=== PATIENT | male | born 1940 | race Caucasian/White ===

== ENCOUNTER 2016-12-07 16:11 | Inpatient (IN) | payer MEDICARE, OTHER ==
[~2016-12-07 16:11] MED LIST: ISOVUE-370 76%-LOCM 1 ML ONE
[2016-12-07 16:56] LABS: Hematocrit 25.7 % (42.0-52.0); Mean Platelet Volume 7.7 fL (7.4-10.4); Red Blood Cell (RBC) Count 2.24 mill/uL (4.70-6.10)
[2016-12-07] MEDS ORDERED: Acetaminophen 500 MG TAB ONE (17:02)
[2016-12-07 17:13] LABS: Anisocytosis SLIGHT = 6-15 cells (100X) (0-5/hpf); Hypochromia SLIGHT = 6-15 cells (100X) (0-5/hpf); Neutrophil 96 % (42-75)
[2016-12-07 17:14] LABS: Lactic Acid - Sepsis 1.3 mmol/L (0.5-2.2)
[2016-12-07 17:17] LABS: ALT (SGPT) 17 U/L (8-55); AST (SGOT) 24 U/L (5-34); Alkaline Phosphatase 66 U/L (40-150); Anion Gap 14 mmol/L (10-20); BUN (Urea Nitrogen) 18 mg/dL (8.4-25.7); Bilirubin, Total 1.2 mg/dL (0.2-1.2); CK (CPK) 72 U/L (30-200); Calc. Creatinine Clearance 0 mL/min (70-130); Calcium 8.5 mg/dL (7.8-10.44); Carbon Dioxide 26 mmol/L (23-31); Chloride 99 mmol/L (98-107); Estimated GFR-MDRD 76; Globulin 4.3 g/dL (2.4-3.5); Protein, Total 7.5 g/dL (5.8-8.1)
[2016-12-07 17:22] LABS: Troponin I 0.029 ng/mL (< 0.028)
--- NOTE | 2016-12-07 18:21 | RAD ---
AP CHEST: Indication: Hypoxia. Tachycardia. Comparison: 08-18-12 FINDINGS: Heart size is upper limits of normal. Pulmonary vasculature appears mildly prominent. There is some suspected interstitial and airspace edema seen bilaterally. There are trace pleural effusions bilate rally. There is a new right IJ chest wall port in place. ACDF of the lower cervical spine is similar . No acute osseous abnormality is evident. IMPRESSION: Mild cardiomegaly with pulmonary vascular congestion and diffuse interstitial and airspace opacities with trace pleural effusions likely reflecting changes of volume overload. Infectious process canno t be entirely excluded. Recommend continued follow up. POS: [facility]
[2016-12-07] MEDS ORDERED: Ketorolac Tromethamine 30 MG/ML VIAL ONE (18:50)
[2016-12-07] MEDS ORDERED: Vancomycin HCl 1 GM in Premix Bag 1 BAG IVPB SCH (19:30)
[2016-12-07] MEDS ORDERED: Piperacillin/Tazobactam 4.5 GM in Sodium Chloride 0.9% 100 ML IVPB SCH (19:30)
--- NOTE | 2016-12-07 20:00 | CT ---
CTA OF THE CHEST WITH IV CONTRAST UTILIZING 3D REFORMATTED IMAGING PE PROTOCOL: Comparison: CT pulmonary lung scan, 04-29-16 INDICATION: SHORTNESS OF BREATH AND SUBJECTIVE FEVERS. HISTORY OF RECENTLY DIAGNOSED CANCER. FINDINGS: No central or segmental pulmonary embolus is evident. Scattered pulmonary nodules are stable with th e largest being in the right lower lobe measuring 2.7 x 2.3 cm. Mediastinal hilar lymphadenopathy is similar. There is new scattered ground glass and interstitial opacities seen throughout both lungs which is worsened from the prior exam. Upper abdomen is unremarkable for acute abnormality. No defin ite acute osseous abnormality is demonstrated. There is a new right chest wall port. IMPRESSION: 1. No central or segmental pulmonary embolus. 2. Interval development of worsening interstitial and air space opacities seen throughout both lungs . Findings are suspicious for atypical pneumonia. 3. Stable scattered pulmonary nodules and mediastinal lymphadenopathy. POS: [facility]
[2016-12-07] MEDS ORDERED: Calcium Carbonate 500 MG ChewTAB PO PRN (22:46)
[2016-12-07] MEDS ORDERED: Ondansetron ODT 4 MG TAB PO PRN (22:46)
[2016-12-07] MEDS ORDERED: Cefepime 2 GM in Sodium Chloride 0.9% 100 ML IVPB SCH (22:46)
[2016-12-07] MEDS ORDERED: Vancomycin HCl 1.5 GM in Sodium Chloride 0.9% 250 ML 300 ML IVPB SCH (22:46)
[2016-12-07] MEDS ORDERED: Ondansetron HCl/PF 4 MG/2 ML Vial IVP PRN (22:46)
[2016-12-07] MEDS ORDERED: Bisacodyl 5 MG TAB PO PRN (22:46)
[2016-12-07] MEDS ORDERED: Bisacodyl 10 MG SUPP PR PRN (22:46)
[2016-12-07] MEDS ORDERED: Acetaminophen 650 MG Suppository PR PRN (22:46)
[2016-12-07] MEDS ORDERED: Acetaminophen 325 MG TAB PO PRN (22:46)
[2016-12-07] MEDS ORDERED: Enoxaparin Sodium 40 MG/0.4 ML SYRINGE SC SCH (23:00)
[2016-12-07] MEDS: Sodium Chloride 0.9% 1,000 ML IV SCH (23:27)
[2016-12-07] MEDS ORDERED: Lorazepam 1 MG TAB PO PRN (23:33)
[2016-12-07] MEDS ORDERED: Acetaminophen/Codeine 30-300mg Tablet PO PRN (23:33)
[2016-12-08] MEDS: HYDROcodone/Acetaminophen 5/325 mg Tablet PO PRN ×4 (00:27→21:10)
[2016-12-08] MEDS: Cefepime 2 GM, Syringe 2.5 ML in Sterile Water 10 ML SLOW IVP SCH ×4 (00:27→23:35)
[2016-12-08] MEDS ORDERED: Acetaminophen/Codeine 30-300mg Tablet PO PRN (00:28)
[2016-12-08 01:03] LABS: Digoxin 0.34 ng/mL (0.8-2.0)
[2016-12-08 01:08] LABS: Troponin I 0.034 ng/mL (< 0.028)
[2016-12-08] MEDS: Sodium Chloride 0.9% 1,000 ML IV SCH (03:28)
[2016-12-08] MEDS: Piperacillin/Tazobactam 3.375 GM in Sodium Chloride 0.9% 100 ML IVPB SCH ×3 (03:28→20:40)
[2016-12-08 03:36] LABS: Band 2 % (5-11); Hematocrit 23.7 % (42.0-52.0); Macrocytosis SLIGHT = 6-15 cells (100X) (0-5/hpf); Mean Platelet Volume 8.2 fL (7.4-10.4); Neutrophil 68 % (42-75); Red Blood Cell (RBC) Count 2.03 mill/uL (4.70-6.10); Troponin I 0.025 ng/mL (< 0.028); White Blood Cell (WBC) Count 4.7 thou/uL (4.8-10.8)
[2016-12-08 03:38] LABS: Anion Gap 13 mmol/L (10-20); BUN (Urea Nitrogen) 18 mg/dL (8.4-25.7); Calc. Creatinine Clearance 79 mL/min (70-130); Calcium 7.6 mg/dL (7.8-10.44); Carbon Dioxide 18 mmol/L (23-31); Chloride 105 mmol/L (98-107); Estimated GFR-MDRD 68
[2016-12-08] MEDS: Vancomycin HCl 1.25 GM in Sodium Chloride 0.9% 250 ML 250 ML IVPB SCH ×2 (05:39→17:25)
[2016-12-08] MEDS: Digoxin 0.125 MG TAB PO SCH (05:52)
[2016-12-08] MEDS: Metoprolol Tartrate 25 MG TAB PO SCH ×3 (05:52→21:11)
[2016-12-08 06:33] LABS: Troponin I 0.011 ng/mL (< 0.028)
--- NOTE | 2016-12-08 07:14 | HP-2 ---
DATE OF ADMISSION: 12/07/2016 LOCATION OF ADMISSION: [facility]. CODE STATUS: FULL. PRIMARY CARE PHYSICIAN: Bryce ayala. ATTENDING: Dr. Fernando. RESIDENT: Isma Heart, PGY-1. SPECIALIST: Dr. Hagan, Manager Of Financial Reporting, and he sees Oncologist in [place], [place]. CHIEF COMPLAINT: Weakness, short of breath and no energy. HISTORY OF PRESENT ILLNESS: This is a 76-year-old male that comes in with a 2 week histor y of shortness of breath, feeling bad and having no energy. He was diagnosed with primary lung can er, invasive adenocarcinoma about 6 months ago. He complains of having decreased exercise intoleran ce. States that it is hard for him even to get up and just walk and go to the bathroom. States wit hin this 2 weeks, he did have a fever one day. About a week ago, he took some medicine and says it is got better, has not had any fever since, said he has had an episode of diarrhea one times today e ramu in the morning. He reports just having his chest feeling heavy. Denies any chest pain. Den ies any dizziness, loss of consciousness. Denies any nausea, vomiting. Patient is currently underg oing chemotherapy and radiation. He gets chemotherapy 3 times a week for every third week. He just started radiation last week and gets that 3 days as well. Patient does have a history of periphera l vascular disease, has a stent in his left leg, but needs a stent in his right leg. He is currentl y seeing Dr. Hagan for this. The patient says that he has had a history of this persistent tach ycardia for about the last month, which he has been seeing Dr. Hagan. Dr. Hagan just referr ed him to electrophysiology to have this worked up. He has not seen them yet. The patient denies a ny other symptoms at this time. No other concerns at this time. The patient does report having dec reased appetite, only eats one maybe kid size meal a day. Reports having chills, no fever except fo r the one reported episode. REVIEW OF SYSTEMS: All review of systems not listed in the HPI, otherwise negative at this time. PAST MEDICAL HISTORY: 1. Invasive adenocarcinoma of the colon. 2. Peripheral vascular disease. 3. Lung cancer. 4. Persistent tachycardia. PAST SURGICAL HISTORY: He has had a stent put in his left leg for PVD. ALLERGIES: No known drug allergies. MEDICATIONS: Promethazine 25 mg q.6 hours p.r.n., lorazepam 1 mg p.o. q.8 hours p.r.n., atorvastati n 40 mg daily, folic acid 0.4 mg daily, dexamethasone 8 mg b.i.d., apixaban 5 mg daily, metoprolol t artrate 25 mg p.o. t.i.d., hydrocodone 5/325 one tab p.o. q.4 hours p.r.n., pantoprazole 40 mg p.o. daily, digoxin 0.125 mg p.o. daily, tamsulosin 0.4 mg p.o. q.a.m., aspirin 81 mg p.o. daily, acetami nophen with codeine 1-2 tablets p.o. q.6 hours p.r.n. FAMILY HISTORY: Mom had ovarian cancer. SOCIAL HISTORY: He was a half pack per day smoker for 40 years, but recently quit with the cancer. Alcohol, used to drink beer every day before the cancer as well. No recent alcohol use. Drugs, no illicit drug use. PHYSICAL EXAMINATION: VITAL SIGNS: Blood pressure is 97/62, pulse is 104, respirations are 23, temperature is 102.5, puls e ox is 94% on 4 liters. Current weight is 70.72. GENERAL: He is alert and oriented x3, well-developed, is obese, appropriately interactive. EYES: PERRLA. Conjunctivae within normal limit. ENT: Oropharynx is a little dry at this time. NECK: Supple, no lymphadenopathy, no thyromegaly. CARDIOVASCULAR: He has a regular rhythm, but his rate is tachycardic on auscultation. No murmurs, no gallops. Radial pulses, pedal pulses palpated bilaterally. His feet are cool to the touch. RESPIRATORY: He has normal breathing effort, no retractions. LUNGS: Fairly clear to auscultation. No decreased breath sounds, no wheezes, crackles, maybe some mild rhonchi on auscultation. SKIN: Warm, dry, and his feet are cold to touch. EXTREMITIES: Upper extremities are warm. No lesions, no rashes noted. ABDOMEN: Soft, nontender to palpation. Bowel sounds heard in all 4 quadrants. No masses or disten tion. MUSCULOSKELETAL: Tone within normal limit. Has full range of motion in both extremities, upper and lower bilaterally. NEUROLOGIC: No focal neurologic deficits. Sensation within normal limits. PSYCHIATRIC: Appropriate. LABORATORY DATA: White blood cell count 7.0, hemoglobin 8.2, hematocrit 25.7, MCV 115, platelets 15 4, 2% bands, 36% neutrophils. Sodium is 135, potassium is 3.9, chloride 99, bicarbonate 26, BUN 18, creatinine 0.97, glucose 95, calcium is 8.5, total protein 7.5, albumin 3.2, alkaline phosphatase o f 66, AST 24, ALT 17, total bilirubin is 1.2. Flu was negative. Lactic acid is 1.3, CK is 72, CK-M B 0.9. Troponins 0.029. BNP is 191. IMAGIN. Chest x-ray showed mild cardiomegaly with pulmonary vascular congestion and diffuse interstitial and airspace opacities with trace pleural effusions likely reflecting changes in volume overload, i nfectious process cannot be entirely excluded and follow up recommended. 2. CTA of the chest, no PE, interval development of worsening interstitial and airspace opacities s een throughout both lungs, atypical pneumonia, stable scattered pulmonary nodules and mediastinal ly mphadenopathy. ASSESSMENT AND PLAN: 1. Sepsis secondary to pneumonia. We will start him on fluids, normal saline at a rate of 25 mL pe r hour. We will recheck an a.m. CBC and BMP and continue to follow. Blood and urine cultures have been drawn and I will continue to follow those to follow for antibiotic regimen. I will start him o n antibiotic regimen of vancomycin at 1.25 grams q.12 hours, Zosyn 3.75 grams q.8 hours and cefepime 2 grams q.8 hours. Lactic acid is normal at this time, not need to follow at this time. 2. Hypertension. We will continue him on normal saline at rate of 125. Continue to monitor blood pressure. 3. Supraventricular tachycardia. We will put him on continuous tele monitoring, continues digoxin, continues metoprolol. I will consult his rn physician office, Dr. Hagan in the morning. 4. Lung cancer. We will need to see if we can contact his lung doctors in [place] and follow up wit h their plan and let him know about this admission and see if they have any recommendations. 5. Adenocarcinoma, again likely being followed with oncologist in [place], so we will follow up with plan as with lung cancer. 6. Elevated troponin. We will trend troponins. Elevated troponins are likely due to the persisten t tachycardia at this time. The patient will be admitted to the [facility] and will be put on a regular d iet at this time. 7. We will give him Lovenox for deep venous thrombosis prophylaxis.
[2016-12-08] MEDS ORDERED: Dexamethasone 4 MG TAB PO SCH (08:00)
[2016-12-08 08:40] LABS: Oxyhemoglobin 76.7 % (94.0-97.0); Sodium 136 mmol/L (135-148)
[2016-12-08] MEDS ORDERED: Furosemide 40 MG/4 ML VIAL SLOW IVP SCH (08:45)
[2016-12-08] MEDS ORDERED: Apixaban 5 MG TAB PO SCH (09:00)
--- NOTE | 2016-12-08 09:40 | PDOC.FM ---
- Subjective Subjective: Pt experiencing significant respiratory distress this AM. Currently satting in 80s on NRB. - Objective MAR Reviewed: Yes Vital Signs & Weight: Vital Signs (12 hours) Temp Pulse Resp BP BP Pulse Ox 12/08/16 09:00 92 28 H 86/57 L 99 12/08/16 08:00 98.4 F 80 24 H 92 L 12/08/16 06:45 98.4 F 80 24 H 84/45 L 89 L 12/08/16 06:10 131 H 28 H 99/55 L 84 L 12/08/16 06:00 130 H 28 H 122/62 85 L 12/08/16 05:52 130 H 12/08/16 04:00 98.6 F 84 18 133/39 L 95 12/08/16 02:00 88 18 115/62 100 12/08/16 00:00 111 H 18 81/47 L 98 12/07/16 23:00 98 20 101/60 98 12/07/16 22:46 94 L 12/07/16 22:30 86 18 88/58 L 94 L 12/07/16 21:40 98.2 F 89 18 100/61 100 Weight Weight 92.76 kg I&O: 12/07/16 12/08/16 12/09/16 06:59 06:59 06:59 Intake Total 1895 120 Output Total 500 Balance 1395 120 Result Diagrams: 12/08/16 03:05 12/08/16 03:05 <Jackie Dacosta - Last Filed: 12/08/16 11:13> - Objective Vital Signs & Weight: Vital Signs (12 hours) Temp Pulse Resp BP Pulse Ox 12/19/16 12:00 100.1 F H 19 12/19/16 10:59 125 H 129/76 12/19/16 10:55 118 H 18 94 L 12/19/16 10:00 14 12/19/16 09:03 117 H 12/19/16 08:00 101.5 F H 117 H 14 94 L 12/19/16 07:00 101.5 F H 12/19/16 06:48 107 H 110/55 L 12/19/16 06:45 114 H 15 99 12/19/16 06:00 12 12/19/16 04:00 100.9 F H 16 12/19/16 03:12 113 H 12/19/16 03:10 108 H 18 97 12/19/16 02:00 12 Weight Admit Weight 91.626 kg Weight 97.1 kg Most Recent Monitor Data Heart Rate from ECG 119 NIBP 111/56 NIBP BP-Mean 76 Respiration from ECG 19 SpO2 96 I&O: 12/18/16 12/19/16 12/20/16 06:59 06:59 06:59 Intake Total 1923.0 4367.3 960 Output Total 3270 5280 1800 Balance -1347.0 -912.7 -840 Result Diagrams: 12/19/16 03:51 12/19/16 03:51 <En Lindsey - Last Filed: 12/19/16 13:23> Phys Exam - Physical Examination Constitutional: NAD Respiratory: wheezing present bibasilar crackles present. Cardiovascular: irregular tachycardic Gastrointestinal: soft, non-tender Musculoskeletal: no edema <Jackie Dacosta - Last Filed: 12/08/16 11:13> Dx/Plan - Plan Plan: 1. Acute Hypoxic Respiratory Failure - crackles and wheezes heard on lung exam. - will place patient on BiPAP now. Consider endotracheal mechanical intubation if pt deteriorates. - scheduled duonebs. 2. Atrial fibrillation - new-onset per patient. - will increase diltiazem drip to 7.5. Continue to monitor pulse and BP - continue diltiazem and metoprolol - pt has seen Dr. Hagan in the past for unspecified tachycardia. Will place consult. 3. Elevated Troponin - likely secondary to demand ischemia. - troponins are downtrending. - continue rate control measures. 4. Lung cancer - will obtain more information from pt's oncologist in [place], Dr. Esparza. 5. Macrocytic anemia. - likely secondary to b12/folate deficiency or malignancy. - will obtain B12 and folate for further evaluation. <Jackie Dacosta - Last Filed: 12/08/16 11:13> Attending Addendum - Attending Addendum I personally evaluated the patient and discussed the management with Dr. Dacosta on 12/08/16 I agree with the History, Examination, Assessment and Plan documented above with any addition or exceptions noted below. Afib with paroxysms of RVR with coughing fits that respond to Diltiazem, but lowers BP to critical levels. Lungs with faint crackles diffusely with decreased BS throughout. No focal dullness noted. Extent of Lung CA not certain with info available; pt. seems to think he's had an overall prognosis of improvement (tumor size reduction in both colon and lungs) with CTX and XRT. To be eval'd by Card and EP for possible ablation if can be stabilized, re: cardio-respiratory status. <En Lindsey - Last Filed: 12/19/16 13:23>
[2016-12-08] MEDS: Folic Acid 1 MG TAB PO SCH (10:28)
[2016-12-08] MEDS: Tamsulosin HCl 0.4 MG CAP PO SCH (10:28)
[2016-12-08] MEDS: Dexamethasone 4 mg/ml Vial SLOW IVP SCH ×3 (10:28→23:34)
[2016-12-08 15:03] LABS: Mode VM; Modified Allen's Test POSITIVE; Vent NO
[2016-12-08] MEDS ORDERED: Digoxin 0.5 MG/2 ML AMP SLOW IVP SCH (18:45)
--- NOTE | 2016-12-08 19:27 | CON ---
HISTORY: Aron Chapman is a 76-year-old white male who has been followed by Dr. Hagan. In March 2014, he underwent placement of a Promus 3.5 x 20 mm stent in the mid right coronary artery, postdilated with a 4.0 mm balloon. In October,, he underwent stent placement in his left leg and was to undergo stent placement in the right leg, but apparently presented with a heart rate of 130 per minute and was found to be in atrial flutter. He was placed on Eliquis and also Lopressor was increased to 25 mg t.i.d. and digoxin was added to control his rate. Appointment has been made to see the textile machinery instructor and that appointment is coming up in 2 days. He now presents with increased shortness of breath. He states that he feels his heart beating very rapidly, felt short of breath and some chest pressure associated with this. He is uncertain if this is all related to the recent arrhythmia or if there is a consequence of his lung adenocarcinoma for which he is undergoing chemotherapy and radiation therapy. He has just noticed that he feels poorly. PAST MEDICAL HISTORY: Adenocarcinoma of the lung, undergoing chemotherapy and radiation therapy; history of adenocarcinoma of the colon, peripheral vascular disease, status post stent placement in the left leg and apparently also needs stent placement in the right leg, atrial flutter, coronary artery disease status post stent placement in the right coronary artery and hypercholesterolemia. OPERATIONS: Knee surgery, lumbar surgery, cervical surgery and stent placement in the right coronary artery and a stent placement in the left leg. MEDICATIONS: Include promethazine 25 mg q.6 hours., lorazepam 1 mg q.8, atorvastatin 40 daily, folic acid 0.4 daily, dexamethasone 8 mg b.i.d., Eliquis 5 mg b.i.d., metoprolol 25 t.i.d., hydrocodone p.r.n., pantoprazole 40 daily, digoxin 0.125 daily, Flomax 0.4 q.a.m., aspirin 81 daily, acetaminophen with Codeine. ALLERGIES: None. SOCIAL HISTORY: He smoked one-half pack per day for 40 years, but quit when he was found to have cancer. He has not had anything to drink for several months. FAMILY HISTORY: Positive for coronary artery disease. REVIEW OF SYSTEMS: A 12 point review of systems otherwise unremarkable. PHYSICAL EXAMINATION: VITAL SIGNS: Blood pressure 105/55, pulse of 84, he is on a Cardizem drip at the present time. HEENT: PERRL. NECK: Supple. LUNGS: Chest reveals somewhat distant breath sounds, but are fairly clear. CARDIAC: S1 and S2 are normal, without any S3, S4 or murmurs. ABDOMEN: Normal bowel sounds, without tenderness or organomegaly. EXTREMITIES: Reveal no clubbing, cyanosis or edema. NEUROLOGIC: Grossly intact. LABORATORY: EKG reveals atrial flutter with ventricular rate of 93 per minute, low voltage, nonspecific ST changes. Hemoglobin 7.4, hematocrit 23.7, white count 4700, platelets 112,000. PH 7.33, pCO2 38.8, pO2 48.8. Sodium 132, potassium 4.1, chloride 105, carbon dioxide 18, BUN 18, creatinine 1.07. Troponin I 0.034. BNP 250.2. Digoxin 0.34. Chest x-ray revealed cardiomegaly with vascular congestion. Chest CTA revealed no evidence of pulmonary embolism and worsening of interstitial airspace opacities bilaterally. IMPRESSION: 1. Atrial flutter which historically has been present for approximately 1 month and it sounds as if he has episodes of significant tachycardia at home associated with shortness of breath, palpitations, and chest pressure. He is on a Cardizem drip and his rate appears to be fairly well controlled. Also, I will give him digoxin 0.25 IV for his low digoxin level. 2. Coronary artery disease, status post stent placement in the mid right coronary artery. 3. Peripheral vascular disease, status post stent placement in the left leg with apparently the need for stent placement in the right leg. 4. Adenocarcinoma of the lung, currently undergoing chemotherapy and radiation therapy. 5. Hyperlipidemia. 6. Former smoker. 7. History of colon cancer. PLAN: Electrophysiology will be consulted. He will be maintained on Cardizem drip. He will be given digoxin 0.25 IV for better rate control. Symptomatically appears that when his rate is controlled that he is feeling well. MTDD
[2016-12-08] MEDS: Apixaban 5 MG TAB PO SCH (21:11)
[2016-12-09] MEDS: Piperacillin/Tazobactam 3.375 GM in Sodium Chloride 0.9% 100 ML IVPB SCH (04:53)
[2016-12-09] MEDS: Vancomycin HCl 1.25 GM in Sodium Chloride 0.9% 250 ML 250 ML IVPB SCH (06:02)
[2016-12-09] MEDS: Dexamethasone 4 mg/ml Vial SLOW IVP SCH ×3 (06:02→18:01)
--- NOTE | 2016-12-09 06:39 | PDOC.FM ---
- Subjective Subjective: Pt states that his dyspnea has improved compared to yesterday. He has been able to get out of bed with little to no dyspnea. Pt had 10 runs of VT yesterday. - Objective MAR Reviewed: Yes Vital Signs & Weight: Vital Signs (12 hours) Temp Pulse Resp BP Pulse Ox 12/09/16 04:00 96.2 F L 70 18 121/62 98 12/09/16 00:00 96.8 F L 63 22 H 95/56 L 100 12/08/16 23:02 64 25 H 100 12/08/16 20:00 97.7 F 64 20 99 12/08/16 19:29 64 12/08/16 19:00 97.7 F 53 L 20 99/49 L 99 Weight Weight 93.123 kg I&O: 12/07/16 12/08/16 12/09/16 06:59 06:59 06:59 Intake Total 1895 1658.4 Output Total 500 2250 Balance 1395 -591.6 Result Diagrams: 12/09/16 07:45 12/09/16 07:45 <Jackie Dacosta - Last Filed: 12/09/16 09:05> - Objective Vital Signs & Weight: Vital Signs (12 hours) Temp Pulse Resp BP Pulse Ox 12/19/16 12:00 100.1 F H 19 12/19/16 10:59 125 H 129/76 12/19/16 10:55 118 H 18 94 L 12/19/16 10:00 14 12/19/16 09:03 117 H 12/19/16 08:00 101.5 F H 117 H 14 94 L 12/19/16 07:00 101.5 F H 12/19/16 06:48 107 H 110/55 L 12/19/16 06:45 114 H 15 99 12/19/16 06:00 12 12/19/16 04:00 100.9 F H 16 12/19/16 03:12 113 H 12/19/16 03:10 108 H 18 97 12/19/16 02:00 12 Weight Admit Weight 91.626 kg Weight 97.1 kg Most Recent Monitor Data Heart Rate from ECG 119 NIBP 111/56 NIBP BP-Mean 76 Respiration from ECG 19 SpO2 96 I&O: 12/18/16 12/19/16 12/20/16 06:59 06:59 06:59 Intake Total 1923.0 4367.3 960 Output Total 3270 5280 1800 Balance -1347.0 -912.7 -840 Result Diagrams: 12/19/16 03:51 12/19/16 03:51 <En Lindsey - Last Filed: 12/19/16 13:34> Phys Exam - Physical Examination Constitutional: NAD Respiratory: clear to auscultation bilateral Cardiovascular: RRR Gastrointestinal: soft, non-tender Musculoskeletal: no edema Neurological: non-focal Psychiatric: A&O x 3 <Jackie Dacosta - Last Filed: 12/09/16 09:05> Dx/Plan (1) CAD (coronary artery disease) Code(s): I25.10 - ATHSCL HEART DISEASE OF [place] CORONARY ARTERY W/O ANG PCTRS Status: Acute - Plan Plan: 1. Acute hypoxic respiratory failure - resolving. Pt still requiring supplemental oxygen via Venti mask. - will wean as tolerated. 2. Community acquired pneumonia. - will change antibiotic coverage to Levaquin and Cefepime 3. Atrial fibrillation/flutter. - rate controlled. Diltiazem discontinued yesterday. - EP to evaluate patient today. 4. Primary right lung adenocarcinoma - pt currently undergoing chemo and radiation 5. Primary colon adenocarcinoma - s/p chemo. Pt to undergo surgical resection once lung function improves. 6. Iron deficiency anemia. - s/p iron infusion on 11/19. - will repeat iron studies today. <Jackie Dacosta - Last Filed: 12/09/16 09:05> Attending Addendum - Attending Addendum I personally evaluated the patient and discussed the management with Dr. Dacosta on 12/09/16. I agree with the History, Examination, Assessment and Plan documented above with any addition or exceptions noted below. Remains intermittently dyspneic with paroxysms of RVR, but somewhat less dyspneic than yesterday. Additional Dig dose. EP to see to advise as to options regarding tachycardia. <En Lindsey - Last Filed: 12/19/16 13:34>
--- NOTE | 2016-12-09 08:15 | RAD ---
CHEST ONE VIEW: History: Pneumonia. Comparison: 12-07-16 FINDINGS: There are multifocal airspace opacities. Small effusions. Heart size is enlarged. [id number] ti p is at the right atrium. No pneumothorax. There is mediastinal adenopathy and multiple pulmonary nodules. IMPRESSION: Progressive airspace opacity and worsening pneumonia. Follow up recommended. POS: [facility]
[2016-12-09 08:16] LABS: Anion Gap 13 mmol/L (10-20); BUN (Urea Nitrogen) 20 mg/dL (8.4-25.7); Calc. Creatinine Clearance 96 mL/min (70-130); Calcium 8.1 mg/dL (7.8-10.44); Carbon Dioxide 23 mmol/L (23-31); Chloride 104 mmol/L (98-107); Estimated GFR-MDRD 84
[2016-12-09] MEDS: Digoxin 0.125 MG TAB PO SCH (08:22)
[2016-12-09] MEDS: Apixaban 5 MG TAB PO SCH ×2 (08:22→20:41)
[2016-12-09] MEDS: Folic Acid 1 MG TAB PO SCH (08:22)
[2016-12-09] MEDS: Tamsulosin HCl 0.4 MG CAP PO SCH (08:23)
[2016-12-09] MEDS: Metoprolol Tartrate 25 MG TAB PO SCH (08:23)
[2016-12-09] MEDS: Cefepime 2 GM, Syringe 2.5 ML in Sterile Water 10 ML SLOW IVP SCH ×2 (08:23→15:56)
[2016-12-09 08:36] LABS: #Lymphocytes 0.3 thou/uL (1.20-3.40); #Monocytes 0.5 thou/uL (0.11-0.59); #Neutrophils 5.3 thou/uL (1.40-6.50); %Lymphocytes 5.3 % (21.0-51.0); %Monocytes 8.3 % (0.0-10.0); Hematocrit 23.7 % (42.0-52.0); Mean Platelet Volume 8.1 fL (7.4-10.4); Red Blood Cell (RBC) Count 2.02 mill/uL (4.70-6.10); White Blood Cell (WBC) Count 6.2 thou/uL (4.8-10.8)
--- NOTE | 2016-12-09 09:09 | PRG ---
DATE OF SERVICE: 12/09/2016 This morning he is somewhat better. X-ray shows pretty extensive bilateral infiltrates. His sputum is relatively clear. PHYSICAL EXAMINATION: VITAL SIGNS: Blood pressure 110/64, sats 100% on 50% Ventimask, temperature 96. CHEST: Chest revealed bilateral crackles. CARDIAC: Normal S1-S2. ABDOMEN: Soft. No masses. LABORATORY: White count 6000, H\T\H 7 and 23, platelet count 132. Electrolytes are normal. IMPRESSION: 1. Bilateral bronchopneumonia. 2. Metastatic cancer. 3. Respiratory failure. PLAN: Continue Decadron. Continue neb treatments. Continue antibiotics. Cultures are negative. Will start deescalating antibiotics.
[2016-12-09] MEDS: HYDROcodone/Acetaminophen 5/325 mg Tablet PO PRN (13:16)
[2016-12-09 16:13] LABS: Folate,Hemolysate 351.8 ng/mL (Not Estab.); Hematocrit 24.1 % (37.5-51.0); RBC Folate Test Component 1460 ng/mL (>498)
[2016-12-09] MEDS ORDERED: Metoprolol Tartrate 5 MG/5 ML VIAL IVP SCH (21:00)
[2016-12-10] MEDS: HYDROcodone/Acetaminophen 5/325 mg Tablet PO PRN (00:11)
[2016-12-10] MEDS: Cefepime 2 GM, Syringe 2.5 ML in Sterile Water 10 ML SLOW IVP SCH ×4 (00:12→23:04)
[2016-12-10] MEDS: Dexamethasone 4 mg/ml Vial SLOW IVP SCH ×2 (00:12→05:31)
[2016-12-10] MEDS ORDERED: Metoprolol Tartrate 5 MG/5 ML VIAL IVP SCH (02:32)
[2016-12-10 06:06] LABS: Hematocrit 23.4 % (42.0-52.0)
[2016-12-10 06:18] LABS: Calc. Creatinine Clearance 108 mL/min (70-130); Estimated GFR-MDRD Greater than 90
--- NOTE | 2016-12-10 06:41 | PDOC.FM ---
- Subjective Subjective: Patient had difficulty breathing last night that he attributed to rapid heart rate. His heart rhythm/rate was aflutter in the 120s-130s this AM. - Objective MAR Reviewed: Yes Vital Signs & Weight: Vital Signs (12 hours) Temp Pulse Resp BP Pulse Ox 12/10/16 06:38 126 H 28 H 98 12/10/16 06:37 124 H 27 H 98 12/10/16 04:00 97.9 F 128 H 22 H 127/77 100 12/10/16 02:34 128 H 20 90 L 12/10/16 00:00 97.8 F 93 22 H 103/61 95 12/09/16 22:26 120 H 18 96 12/09/16 20:00 97.8 F 93 22 H 95 12/09/16 19:20 126 H 20 91 L 12/09/16 19:00 98.1 F 108 H 18 102/68 95 Weight Weight 93.213 kg I&O: 12/08/16 12/09/16 12/10/16 06:59 06:59 06:59 Intake Total 1895 2418.4 240 Output Total 500 3030 Balance 1395 -611.6 240 Result Diagrams: 12/10/16 05:45 12/10/16 05:45 <Jackie Dacosta - Last Filed: 12/10/16 08:48> - Objective Vital Signs & Weight: Vital Signs (12 hours) Temp Pulse Resp BP Pulse Ox 12/19/16 12:00 100.1 F H 19 12/19/16 10:59 125 H 129/76 12/19/16 10:55 118 H 18 94 L 12/19/16 10:00 14 12/19/16 09:03 117 H 12/19/16 08:00 101.5 F H 117 H 14 94 L 12/19/16 07:00 101.5 F H 12/19/16 06:48 107 H 110/55 L 12/19/16 06:45 114 H 15 99 12/19/16 06:00 12 12/19/16 04:00 100.9 F H 16 12/19/16 03:12 113 H 12/19/16 03:10 108 H 18 97 12/19/16 02:00 12 Weight Admit Weight 91.626 kg Weight 97.1 kg Most Recent Monitor Data Heart Rate from ECG 119 NIBP 111/56 NIBP BP-Mean 76 Respiration from ECG 19 SpO2 96 I&O: 12/18/16 12/19/16 12/20/16 06:59 06:59 06:59 Intake Total 1923.0 4367.3 960 Output Total 3270 5280 1800 Balance -1347.0 -912.7 -840 Result Diagrams: 12/19/16 03:51 12/19/16 03:51 <En Lindsey - Last Filed: 12/19/16 13:42> Phys Exam - Physical Examination Constitutional: NAD Respiratory: clear to auscultation bilateral on BiPAP tachycardic Gastrointestinal: soft, non-tender Musculoskeletal: no edema <Jackie Dacosta - Last Filed: 12/10/16 08:48> Dx/Plan (1) CAD (coronary artery disease) Code(s): I25.10 - ATHSCL HEART DISEASE OF [place] CORONARY ARTERY W/O ANG PCTRS Status: Acute - Plan Plan: 1. Acute Hypoxic Respiratory failure. - Pt experienced dyspnea and oxygen desaturation which required BiPAP. - Possibly due to tachycardia. Pt is to receive digoxin and diltiazem PO, which will hopefully control rate. - We will attempt to wean oxygen requirement as tolerated. 2. Atrial flutter - pt's heart rate currently ranging from low 100s to 110s. - Continue diltiazem and digoxin - EP plans for RAPHAEL/ablation tomorrow. - continue anticoagulation with Eliquis. 3. Community Acquired Pneumonia - Continue Levaquin and Cefepime. - respiratory status change likely due to tachycardia, will continue to monitor and wean oxygen as tolerated. 4. Iron Deficiency Anemia - s/p iron infusion on 11/19 - Fe:45, TIBC: 136 - H/H stable at 7.5 today. Will continue to monitor and transfuse for Hgb < 7 5. Primary right lung adenocarcinoma - currently undergoing radiation and chemo. 6. Primary colon adenocarcinoma - pt to undergo surgical resection when lung function improves. <Jackie Dacosta - Last Filed: 12/10/16 08:48> Attending Addendum - Attending Addendum I personally evaluated the patient and discussed the management with Dr. Dacosta on 12/10/16 I agree with the History, Examination, Assessment and Plan documented above with any addition or exceptions noted below. Dyspnea and RVR deteriorated last night. Dependent on BIPAP. Discussed with pt., Pulm and Cardiology, re: options. Will need either RAPHAEL and EP/ablation for resolution of A-flutter, which would definitely require intubation at this point, vs. sedation and Cardioversion without knowledge of thrombus status from RAPHAEL, which may end up needing intubation if respiratorily depressed during procedure. Pt. to discuss with family when arrives. Doesn't want intubation if will be dependent, but understands may be a necessity to gain some improvement. Oncologist contacted by [facility], reports she had similar discussion with pt. but pt. doesn't remember. <En Lindsey - Last Filed: 12/19/16 13:42>
[2016-12-10 07:03] LABS: Iron 45 ug/dL (65-175)
[2016-12-10] MEDS ORDERED: guaiFENesin 200 MG TAB PO PRN (08:35)
[2016-12-10] MEDS: Digoxin 0.125 MG TAB PO SCH (08:43)
[2016-12-10] MEDS: Apixaban 5 MG TAB PO SCH ×2 (08:43→21:21)
[2016-12-10] MEDS: Folic Acid 1 MG TAB PO SCH (08:43)
[2016-12-10] MEDS: Tamsulosin HCl 0.4 MG CAP PO SCH (08:44)
--- NOTE | 2016-12-10 09:03 | PRG ---
DATE OF SERVICE: 12/10/2016 This morning he is awake, responsive on his BiPAP for his obstructive sleep apnea. PHYSICAL EXAMINATION: VITAL SIGNS: Pulse 130, temperature 96, O2 sat 96%, blood pressure 130/77. Cough is clear, denies any chest pain. I's and O's are 2418 in, 303 out. CHEST: Chest reveals bilateral rhonchi and crackles. CARDIAC: Sinus tachycardia. ABDOMEN: Soft. LABORATORY: His H\T\H is 7 and 23, otherwise electrolytes are normal. IMPRESSION: 1. Respiratory failure. 2. Bilateral bronchopneumonia, possibly metastatic disease. 3. Metastatic lung cancer. PLAN: Maxipime and Levaquin on board, steroids. X-ray in the morning. We will deescalate antibiotics at that time. Otherwise neb treatment, Decadron, etc. I will follow.
--- NOTE | 2016-12-10 09:52 | CON ---
DATE OF CONSULTATION: 12/09/2016 CONSULTING PHYSICIAN: Dr. Warren Pina REFERRING PHYSICIAN: Dr. Preston Plasencia REASON FOR CONSULTATION: Atrial flutter. HISTORY OF PRESENT ILLNESS Aron Chapman is a 76-year-old male patient who is seen today in consultation at the request of Dr. Plasencia. The patient was recently admitted to the hospital with progressively worsening dyspnea on exertion. He was noted to be in atrial flutter with rapid ventricular response. He was started on Eliquis and given Lopressor. We have been asked to recommend further treatment of atrial flutter. The patient normally sees Dr. Hagan in the clinic and underwent percutaneous stenting of the left leg in October. In November, the patient was in an atrial arrhythmia while in clinic. Today, the patient reports shortness of breath and fatigue, but denies any chest discomfort, presyncope or syncope. PAST MEDICAL HISTORY: 1. Typical atrial flutter of uncertain onset or duration. 2. Peripheral arterial disease status post stenting of the left leg in 2016. The patient is anticipating stenting of the right leg in the future by Dr. Hagan. 3. Atherosclerotic cardiovascular disease, status post percutaneous coronary stenting in 2013. 4. History of adenocarcinoma. 5. Lung cancer, currently on chemotherapy. 6. History of sepsis secondary to pneumonia, treated with antibiotic therapy. ALLERGIES/INTOLERANCES: PLETAL. CURRENT MEDICATIONS: 1. Pantoprazole 40 mg daily. 2. Eliquis 5 mg b.i.d. 3. Digoxin 0.125 mg daily. 4. Dexamethasone as directed. FAMILY HISTORY: Positive for premature coronary artery disease. SOCIAL HISTORY: The patient has a [id number] history of smoking, but quit recently when he was diagnosed with lung cancer. He has been abstaining from alcohol recently also. REVIEW OF SYSTEMS: Ten point review of systems was negative except what was mentioned in history of present illness. PHYSICAL EXAMINATION: GENERAL: The patient is a frail appearing elderly male in no apparent distress. VITAL SIGNS: Blood pressure 112/70, pulse 120, respirations 20. HEENT: Head normocephalic. Pupils equal, round, and reactive to light and accommodation. NECK: Supple, without jugular venous distention. RESPIRATORY: Breath sounds diminished throughout the lung velazquez with no adventitious sounds noted. Respiratory effort unlabored with good bilateral excursion. CARDIOVASCULAR: Irregularly irregular. S1, S2. ABDOMEN: Soft, nontender. Bowel sounds normoactive. Hepatojugular reflux negative. EXTREMITIES: No lower extremity edema noted. NEUROLOGIC/PSYCHIATRIC: Alert and oriented x3. Normal affect. Cranial nerves II-XII grossly intact. DIAGNOSTIC DATA: EKG demonstrated typical atrial flutter with rapid ventricular response. 1. Thromboembolic risk factors of advancing age and vascular disease giving him CHADS-VASc score of 2. He was just recently started on Eliquis for CVA prophylaxis. 2. Comorbidity of lung and colon cancer, currently on chemotherapy. 3. History of sepsis secondary to pneumonia, treated with antibiotic therapy. PLAN: The patient is recommended for transesophageal echocardiogram to rule out left atrial appendage thrombus. If this is ruled out, we will proceed with electrophysiology study and possibly radiofrequency ablation of the tricuspid isthmus, probably on Wednesday of this week. The patient understands the goals and risks including , SD, CVA, cardiac arrest, cardiac perforation, arrhythmia recurrence, and possible need for repeat or serial procedures. OK
[2016-12-10 11:57] LABS: Troponin I Less than 0.010 ng/mL (< 0.028)
[2016-12-10] MEDS ORDERED: Propofol 1,000 MG/100 ML VIAL IV ONE (12:23)
[2016-12-10] MEDS ORDERED: Midazolam HCl 2 mg/2 ml Vial ONE (12:24)
[2016-12-10] MEDS ORDERED: Sedation Protocol FS ONE (12:39)
[2016-12-10] MEDS ORDERED: DISCONTINUE PREVIOUS NARCOTIC PAIN MEDICATIONS AND BENZODIAZEPINES FS SCH (12:41)
[2016-12-10] MEDS ORDERED: Albumin 25% 25 GM/100 ML BOT IVPB SCH (12:45)
[2016-12-10 13:04] LABS: BF Reference Range Comment Note:
[2016-12-10] MEDS: Lorazepam 2 MG/ML VIAL SLOW IVP PRN (13:05)
[2016-12-10] MEDS ORDERED: Midazolam HCl 2 mg/2 ml Vial SLOW IVP SCH (13:15)
--- NOTE | 2016-12-10 13:39 | OP ---
DATE OF PROCEDURE: 12/10/2016 SURGEON: Dr. Albert Conti The patient has gone into atrial fibrillation. Cardiology felt he needed a RAPHAEL to cardiovert him. Unfortunately, because he is hypoxic, it was felt that he would need to be intubated. The patient s tated that his wishes were not to be intubated. He was told it was very unlikely he would tolerate the RAPHAEL with sedation without getting severely hypoxemic, therefore agreed. It was felt that we wou ld try and intubate and hopefully keep him on the vent as short of time as possible. Additionally, it was felt he has got diffuse pulmonary infiltrates, will do a bronch lavage followin g intubation. The patient agreed. He was transferred to the ICU. He was given a total of 2 Versed. A bite block was placed, a #7.5 tube was placed over the bronchoscope and passed via the vocal cords placed abov e the lucero without any problems. He was bagged, oxygen saturations remained in the 90s. The bron choscope was repassed again in the right lung, upper, middle and lower lobes were visualized. No ob vious endobronchial disease was seen, or blood or pus was seen. This was lavaged with normal saline , about 30 mL. Thereafter, the left lung was visualized. Once again, the left upper and left lower lobes were visualized without any obvious endobronchial obstruction or blood or pus. This was lava ged with normal saline in 30 mL. Washings will be sent for AFB smear and culture, fungal smear and culture, and routine Gram stain and C\T\S. The patient otherwise tolerated the procedure well. He was connected to volume cycle respirator. His family is at the bedside, will .
[2016-12-10] MEDS: Propofol 1,000 MG/100 ML VIAL IV PRN ×3 (13:42→21:34)
--- NOTE | 2016-12-10 13:53 | RAD ---
CHEST ONE VIEW HISTORY: Congestive heart failure. COMPARISON: 12/09/2016 FINDINGS: Cardiac silhouette is magnified by projection and upper limits of normal. Pulmonary vasculature rem ains engorged with patchy areas of parenchymal opacity throughout each lung, similar in appearance t o the previous exam. Mediastinum is midline with right internal jugular MediPort in place. senior informatica etl developer leads overlie the chest. IMPRESSION: Pulmonary vascular congestion, multifocal parenchymal opacities, and other findings are stable. POS: MY
[2016-12-10] MEDS ORDERED: Amiodarone HCl 150 MG, Admixture Fee 1 EACH in Dextrose 5% in Water 100 ML IVPB SCH ×3 (14:15)
[2016-12-10 14:30] LABS: BF Color Pink; BF WBC/Nonhematics Ct. - Manua 55 /cumm
[2016-12-10 14:45] LABS: Oxyhemoglobin 97.2 % (94.0-97.0); Sodium 140 mmol/L (135-148)
[2016-12-10 14:52] LABS: Mechanical Tidal Volume 500 ml; Mode PSIMV; Modified Allen's Test POSITIVE; Pressure Support 10 cmH2O; Vent YES
[2016-12-10] MEDS: Amiodarone HCl 450 MG, Admixture Fee 1 EACH in Dextrose 5% in Water 250 ML IVPB SCH ×6 (14:54→23:03)
[2016-12-10 15:04] LABS: Number Cells Counted-Fluids 100
[2016-12-10] MEDS: Dexamethasone 1 MG TAB PO SCH (16:31)
[2016-12-10] MEDS ORDERED: Furosemide 40 MG/4 ML VIAL SLOW IVP SCH (17:00)
--- NOTE | 2016-12-10 20:18 | PRG ---
DATE OF SERVICE: 12/10/2016. SUBJECTIVE: Mr. Chapman seems to be progressively more dyspneic today than yesterday. He has been we aring a BiPAP but still struggling to breathe. OBJECTIVE: VITAL SIGNS: Blood pressure is 127/77, heart rate 128, respirations 22, temperature 97.9 degrees Fa hrenheit. GENERAL: He is alert but distressed man in no apparent distress. NECK: Supple. Jugular veins not distended. CHEST: Coarse without crackles. CARDIOVASCULAR: Heart sounds are regular rate and rhythm but tachycardic. No murmur or gallop. ABDOMEN: Benign. Bowel sounds are positive. EXTREMITIES: Lower extremities without edema, clubbing, or cyanosis. DATABASE: Telemetry strips continue to reveal atrial flutter with rapid rates. DATA: Hemoglobin is 7.5 today. ASSESSMENT AND PLAN: Mr. Chapman is a 76-year-old man with a history of lung cancer, who recently dev eloped atrial flutter which persists, with rapid rates, although mostly with activities but reasona christa controlled with rest. Nevertheless, it will be reasonable to eliminate his atrial flutter but c urrently not anticoagulated and will need a RAPHAEL prior to that. Also complicating issue is acute pne umonia which worsens his baseline poor respiratory status. At this point, I will continue to observ e him. Should he improve in his respiratory status, we will consider the ablation procedure. We wi ll follow with you.
--- NOTE | 2016-12-11 01:05 | CON ---
DATE OF SERVICE: 12/09/2016 This is an electrophysiology consultation report. REFERRING PHYSICIAN: Dr. Jaylon Hagan. This note is to compliment the consultation report dictated by Sherice Frye NP that whom I rosa elena luated the patient. Please see her dictation for details. Patient was examined by me and chart was reviewed as well. In summary, this gentleman is a 76-year-old man with a history of lung cancer on chemotherapy, also has peripheral vascular disease. It was noted to be in atrial flutter with rapid rate, eventually w orsened dyspnea has drove him to the hospital for being able to be visit me in the office originally planned by Dr. Hagan. He still has atrial flutter with rapid rates. EKG suggestive of typical atrial flutter. Complication issue is his pulmonary status which is still suboptimal. We will fol low with you for consultation with a cavotricuspid isthmus ablation, in the meantime anticoagulation is considered, although his hemoglobin level was at borderline. Heart rate control with digoxin an d diltiazem is reasonable. Once clinically stable, would like to proceed with ablation. Risks and benefits discussed with the patient, he is willing to proceed.
[2016-12-11] MEDS: Sodium Chloride 0.9% 1,000 ML IV SCH ×3 (01:30→18:24)
[2016-12-11] MEDS: Propofol 1,000 MG/100 ML VIAL IV PRN ×4 (03:31→23:19)
[2016-12-11 04:10] LABS: #Lymphocytes 0.5 thou/uL (1.20-3.40); #Monocytes 0.5 thou/uL (0.11-0.59); #Neutrophils 6.3 thou/uL (1.40-6.50); %Eosinophils 0.5 % (0.0-10.0); %Lymphocytes 6.8 % (21.0-51.0); %Monocytes 6.4 % (0.0-10.0); Hematocrit 22.7 % (42.0-52.0); Mean Platelet Volume 7.9 fL (7.4-10.4); Red Blood Cell (RBC) Count 2.03 mill/uL (4.70-6.10); White Blood Cell (WBC) Count 7.3 thou/uL (4.8-10.8)
[2016-12-11 04:26] LABS: ALT (SGPT) 38 U/L (8-55); AST (SGOT) 47 U/L (5-34); Alkaline Phosphatase 62 U/L (40-150); Anion Gap 14 mmol/L (10-20); BUN (Urea Nitrogen) 22 mg/dL (8.4-25.7); Bilirubin, Total 0.8 mg/dL (0.2-1.2); Calc. Creatinine Clearance 83 mL/min (70-130); Calcium 8.1 mg/dL (7.8-10.44); Carbon Dioxide 22 mmol/L (23-31); Chloride 106 mmol/L (98-107); Estimated GFR-MDRD 71; Globulin 3.6 g/dL (2.4-3.5); Protein, Total 6.5 g/dL (5.8-8.1)
--- NOTE | 2016-12-11 07:38 | PDOC.FM ---
- Subjective Subjective: Patient currently sedated on mechanical ventilation. Concern expressed by nursing for decreased UOP last night. Otherwise, no adverse events overnight. - Objective MAR Reviewed: Yes Vital Signs & Weight: Vital Signs (12 hours) Temp Pulse Resp BP Pulse Ox 12/11/16 07:22 64 93/55 L 12/11/16 07:21 65 34 H 92 L 12/11/16 04:00 97.8 F 12/11/16 03:50 32 H 12/11/16 03:01 69 89/55 L 12/11/16 03:00 69 26 H 94 L 12/11/16 00:00 97.7 F 28 H 12/10/16 22:13 66 99/55 L 12/10/16 22:12 67 27 H 97 12/10/16 20:00 97.7 F 78 29 H 90 L Weight Weight 94.4 kg Most Recent Monitor Data Heart Rate from ECG 69 NIBP 87/45 NIBP BP-Mean 53 Respiration from ECG 24 SpO2 94 I&O: 12/10/16 12/11/16 12/12/16 06:59 06:59 06:59 Intake Total 530 2226 Output Total 840 1335 Balance -310 891 Result Diagrams: 12/11/16 03:35 12/11/16 03:35 <Jackie Dacosta - Last Filed: 12/11/16 07:46> - Objective Vital Signs & Weight: Vital Signs (12 hours) Temp Pulse Resp BP Pulse Ox 12/19/16 12:00 100.1 F H 19 12/19/16 10:59 125 H 129/76 12/19/16 10:55 118 H 18 94 L 12/19/16 10:00 14 12/19/16 09:03 117 H 12/19/16 08:00 101.5 F H 117 H 14 94 L 12/19/16 07:00 101.5 F H 12/19/16 06:48 107 H 110/55 L 12/19/16 06:45 114 H 15 99 12/19/16 06:00 12 12/19/16 04:00 100.9 F H 16 12/19/16 03:12 113 H 12/19/16 03:10 108 H 18 97 12/19/16 02:00 12 Weight Admit Weight 91.626 kg Weight 97.1 kg Most Recent Monitor Data Heart Rate from ECG 119 NIBP 111/56 NIBP BP-Mean 76 Respiration from ECG 19 SpO2 96 I&O: 12/18/16 12/19/16 12/20/16 06:59 06:59 06:59 Intake Total 1923.0 4367.3 960 Output Total 3270 5280 1800 Balance -1347.0 -912.7 -840 Result Diagrams: 12/19/16 03:51 12/19/16 03:51 <En Lindsey - Last Filed: 12/19/16 14:01> Phys Exam - Physical Examination Constitutional: NAD (sedated on vent) Respiratory: clear to auscultation bilateral Cardiovascular: RRR Gastrointestinal: soft, non-tender Musculoskeletal: no edema, pulses present <Jackie Dacosta - Last Filed: 12/11/16 07:46> Dx/Plan (1) CAD (coronary artery disease) Code(s): I25.10 - ATHSCL HEART DISEASE OF [place] CORONARY ARTERY W/O ANG PCTRS Status: Acute - Plan Plan: 1. Acute Hypoxic Respiratory Failure - Pt currently sedated and mechanically ventillated. - Vent Settings: FiO2: 50%, Rate: 16, TV: 500 PEEP: 5, Pressure Support: 10 - Vent managment per Pulm 2. Atrial Flutter - s/p cardioversion yesterday - currently on amio gtt. - Dr. Pina plans to hold off on ablation until respiratory status improves. 3. Community Acquired Pneumonia - Antibiotic day 4 - continue Vancomycin and Levaquin. 4. Iron deficiency anemia - s/p 1 unit PRBC. - Hgb did not increase after transfusion. 5. Primary Lung Cancer and Primary Colon Cancer. - currently undergoing treatment. <Jackie Dacosta - Last Filed: 12/11/16 07:46> Attending Addendum - Attending Addendum I personally evaluated the patient and discussed the management with Dr. Dacosta on 12/11/16. I agree with the History, Examination, Assessment and Plan documented above with any addition or exceptions noted below. Pt. intubated yest. pm due to deteriorating dyspnea and Resp distress, and in anticipation of interventions for A-fib/flutter (RAPHAEL, Ablation vs. Cardioversion ). Pt. placed on amiodarone drip, resulting in conversion to Sinus rhythm. Remains vent dependent, on 50% FiO2. Continue supportive care. <En Lindsey - Last Filed: 12/19/16 14:01>
[2016-12-11 07:50] LABS: Oxyhemoglobin 87.1 % (94.0-97.0); Sodium 138 mmol/L (135-148)
[2016-12-11 07:52] LABS: Modified Allen's Test POSITIVE; Vent YES
[2016-12-11 07:53] LABS: Mechanical Tidal Volume 500 ml; Mode PSIMV; Pressure Support 10 cmH2O
--- NOTE | 2016-12-11 08:52 | PRG ---
DATE OF SERVICE: 12/11/2016 This morning he is on the vent, awake, responsive. PHYSICAL EXAMINATION: VITAL SIGNS: Pulse 70 and regular, blood pressure 100/80, sats 90%, respirations 18. I's and O's are 226 in and 1320 out. CHEST: Chest revealed rhonchi and crackles. CARDIAC: Normal sinus rhythm. ABDOMEN: Soft, no masses. LABORATORY: White count 7000, H\T\H 7 and 22. He has got 86 segs, platelet count is low 103. PO2 is 53, pCO2 36, pH 7.40, rate 16, 50%, 5 of PEEP. Electrolytes are normal. Bicarb is 22. X-ray sh ows bilateral diffuse haziness. So far bronch washings are not growing any organisms. IMPRESSION: 1. Respiratory failure. 2. Bilateral pneumonia. 3. Presumed metastatic disease, cancer. 4. Status post cardioversion for atrial fibrillation. PLAN: It appears at this stage he is not weanable. Continue Maxipime, Levaquin. Steroids, nebuliz er treatments. I will follow. One-half hour critical care time.
--- NOTE | 2016-12-11 08:56 | RAD ---
CHEST 1 VIEW: Date: 12/11/16 HISTORY: 76-year-old male with follow-up pneumonia. COMPARISON: 12/10/16. FINDINGS: NG tube, endotracheal tubes, and right subclavian catheter and injection port are in place. There ar e extensive bilateral interstitial and alveolar opacities becoming more dense and more confluent whe n compared to the prior 12/10/16 study. Increasing left pleural effusion. IMPRESSION: Marked worsening in the extensive bilateral interstitial and alveolar opacity changes throughout bot h lungs and left pleural effusion. Life support tubes in place. POS: MY
[2016-12-11] MEDS ORDERED: Pantoprazole 40 MG GRANULES PACKET PO SCH ×2 (09:00→09:30)
[2016-12-11] MEDS: Dexamethasone 1 MG TAB PO SCH (09:12)
[2016-12-11] MEDS: Cefepime 2 GM, Syringe 2.5 ML in Sterile Water 10 ML SLOW IVP SCH ×3 (09:20→23:21)
[2016-12-11] MEDS: Apixaban 5 MG TAB PO SCH ×2 (09:38→20:37)
[2016-12-11] MEDS: Digoxin 0.125 MG TAB PO SCH (09:38)
[2016-12-11] MEDS: Folic Acid 1 MG TAB PO SCH (09:39)
[2016-12-11] MEDS: Tamsulosin HCl 0.4 MG CAP PO SCH (09:39)
[2016-12-11] MEDS ORDERED: methylPREDNISolone Sod Succ/PF 125 MG/2 ML VIAL IVP SCH (12:00)
[2016-12-11] MEDS: Amiodarone HCl 450 MG, Admixture Fee 1 EACH in Dextrose 5% in Water 250 ML IVPB SCH ×3 (13:44)
[2016-12-11] MEDS: Fentanyl 20 MCG/ML 250 ML IVPB SCH (15:26)
--- NOTE | 2016-12-11 16:05 | EKG ---
Test Reason : POST CARDIOVERSION Blood Pressure : / mmHG Vent. Rate : 077 BPM Atrial Rate : 077 BPM P-R Int : 152 ms QRS Dur : 086 ms QT Int : 390 ms P-R-T Axes : 048 -14 -03 degrees QTc Int : 441 ms Normal sinus rhythm Normal ECG When compared with ECG of 10-DEC-2016 13:09, (Unconfirmed) Sinus rhythm has replaced Atrial fibrillation Confirmed by DR. Tushar ADHIKARI ([id number]) on 12/11/2016 4:05:43 PM Referred By: LINH Confirmed By:DR. Tushar ADHIKARI
--- NOTE | 2016-12-11 16:05 | EKG ---
Test Reason : CARDIOVERSION Blood Pressure : / mmHG Vent. Rate : 088 BPM Atrial Rate : 267 BPM P-R Int : 000 ms QRS Dur : 084 ms QT Int : 370 ms P-R-T Axes : 000 -17 -13 degrees QTc Int : 447 ms Atrial fibrillation with a competing junctional pacemaker ST abnormality, possible digitalis effect Abnormal ECG When compared with ECG of 10-DEC-2016 11:09, (Unconfirmed) Atrial fibrillation has replaced Sinus rhythm Vent. rate has decreased BY [address] no longer depressed in Anterior leads T wave inversion no longer evident in Anterolateral leads Confirmed by DR. Tushar ADHIKARI ([id number]) on 12/11/2016 4:05:21 PM Referred By: LINH Confirmed By:DR. Tushar ADHIKARI
--- NOTE | 2016-12-11 16:05 | EKG ---
Test Reason : Blood Pressure : / mmHG Vent. Rate : 132 BPM Atrial Rate : 132 BPM P-R Int : 000 ms QRS Dur : 084 ms QT Int : 264 ms P-R-T Axes : 000 -23 186 degrees QTc Int : 391 ms Sinus tachycardia Abnormal ECG When compared with ECG of 07-DEC-2016 16:34, (Unconfirmed) Sinus rhythm has replaced Atrial flutter ST now depressed in Lateral leads T wave inversion now evident in Anterolateral leads Confirmed by DR. Tushar ADHIKARI ([id number]) on 12/11/2016 4:04:56 PM Referred By: NARENDRA LAI Confirmed By:DR. Tushar ADHIKARI
--- NOTE | 2016-12-11 23:21 | PRG ---
DATE OF SERVICE: 12/11/2016 ELECTROPHYSIOLOGY FOLLOWUP NOTE SUBJECTIVE: Mr. Chapman seems to have worsened respiratory amado and over yesterday, he got intubated. Dr. Conti performed the bronchoalveolar lavage after intubation and bronchoscopy. He seems to be n ot weanable today. Dr. Hagan started him on IV amiodarone. He was actually converted back to s inus rhythm. OBJECTIVE DATA: VITAL SIGNS: Blood pressure is 108/58, heart rate 65, respiratory rate is 29. GENERAL: He is an intubated and sedated man, in no apparent distress. NECK: Supple. Jugular veins not distended. CHEST: Coarse, no crackles. CARDIOVASCULAR: Heart sounds are regular to rate and rhythm. No murmur or gallop. ABDOMEN: Benign. Bowel sounds positive. EXTREMITIES: Lower extremities without edema, clubbing, or cyanosis. Telemetry strips reviewed reveals sinus rhythm, atrial flutter terminated. LABORATORY DATA: White count is 7.3, hemoglobin 7.1, platelet count is 103. Sodium 138, potassium 3.5, BUN is 22, creatinine 1.03. ABG is with pH of 7.4, pCO2 of 37, pO2 of 53. ASSESSMENT AND PLAN: Mr. Chapman is a pleasant 76-year-old male with a prior history of lung cancer, who has been found to be in atrial flutter with rapid rates. He required intubation due to worsenin g respiratory status. We are contemplating ablation before, but it seems that his overall condition is deteriorating. He remains with very poor pulmonary situation in spite of conversion back to sin us rhythm from the atrial flutter. PLAN: 1. Continue amiodarone as per Dr. Hagan. 2. Anticoagulation is difficult proposition due to severe anemia. 3. Lung cancer and respiratory failure as per Dr. Conti. We will have to see her back if can be of further help. Can consider cavotricuspid isthmus ablation after clinical stabilization if that is felt appropriate.
[2016-12-12] MEDS: Amiodarone HCl 450 MG, Admixture Fee 1 EACH in Dextrose 5% in Water 250 ML IVPB SCH ×6 (04:19→20:37)
[2016-12-12 04:54] LABS: Hematocrit 26.8 % (42.0-52.0)
[2016-12-12] MEDS: Sodium Chloride 0.9% 1,000 ML IV SCH ×2 (06:21→20:36)
--- NOTE | 2016-12-12 06:41 | PDOC.FM ---
- Subjective Subjective: Pt currently sedated and unable to give hx. Per nursing, UOP improved from prior night. Pt resting comfortably. Sedation lowered this AM. No fevers. Not requiring pressors. No other complaints. - Objective MAR Reviewed: Yes Vital Signs & Weight: Vital Signs (12 hours) Temp Pulse Resp Pulse Ox 12/12/16 06:00 24 H 12/12/16 04:00 97.6 F 24 H 12/12/16 02:00 60 19 12/12/16 01:59 48 L 16 98 12/12/16 00:00 97.7 F 24 H 12/11/16 22:28 58 L 12/11/16 22:27 57 L 20 99 12/11/16 22:00 26 H 12/11/16 20:00 97.7 F 58 L 18 100 Weight Weight 93.9 kg Most Recent Monitor Data Heart Rate from ECG 52 NIBP 110/54 NIBP BP-Mean 65 Respiration from ECG 18 SpO2 99 I&O: 12/10/16 12/11/16 12/12/16 06:59 06:59 06:59 Intake Total 530 2226 2968 Output Total 840 1335 1470 Balance -898 981 1054 Result Diagrams: 12/12/16 04:30 12/12/16 04:30 EKG Reviewed by me: Yes Radiology Reviewed by me: Yes (Today's CXR appears to show very mild improvement in bilateral opacities) <Aravind Cochran - Last Filed: 12/12/16 06:38> - Objective Vital Signs & Weight: Vital Signs (12 hours) Temp Pulse Resp BP Pulse Ox 12/12/16 10:20 58 L 124/64 12/12/16 10:18 64 24 H 95 12/12/16 10:00 24 H 12/12/16 08:00 97.6 F 61 18 97 12/12/16 07:00 97.6 F 12/12/16 06:41 58 L 110/54 L 12/12/16 06:40 53 L 30 H 99 12/12/16 06:00 24 H 12/12/16 04:00 97.6 F 24 H 12/12/16 02:00 60 19 12/12/16 01:59 48 L 16 98 12/12/16 00:00 97.7 F 24 H Weight Weight 207 lb 0.225 oz Most Recent Monitor Data Heart Rate from ECG 52 NIBP 125/62 NIBP BP-Mean 72 Respiration from ECG 14 SpO2 97 I&O: 12/11/16 12/12/16 12/13/16 06:59 06:59 05:59 Intake Total 2226 2968 120 Output Total 1335 1470 225 Balance 891 1498 -105 Result Diagrams: 12/12/16 04:30 12/12/16 04:30 <Mukul Canales - Last Filed: 12/12/16 10:33> Phys Exam - Physical Examination sedated and sleeping, intubated, winces to painful stimuli HEENT: moist MMs, sclera anicteric intubated Neck: supple Respiratory: no wheezing coarse bilateral breath sounds Cardiovascular: RRR, no significant murmur Gastrointestinal: soft, non-tender, no distention, positive bowel sounds Musculoskeletal: no edema, pulses present sedated Deviation from normal: sedated <Aravind Cochran - Last Filed: 12/12/16 06:38> Dx/Plan (1) Acute respiratory failure with hypoxia Code(s): J96.01 - ACUTE RESPIRATORY FAILURE WITH HYPOXIA Status: Acute Plan: Pt currently sedated and mechanically ventilated following RAPHAEL and cardioversion on 12/10. Currently unable to wean due to PNA, primary lung cancer , and overall health status. Pulm following and managing vent. Bilevel for better oxygenation. Attempt to wean daily per pulm. No acute events. Sedation dropped today. (2) Community acquired bacterial pneumonia Code(s): J15.9 - UNSPECIFIED BACTERIAL PNEUMONIA Status: Acute Plan: Continue IV abx. CXR today shows very mild improvement in bilateral opacities per my initial impression. Pt is sedated. Afebrile. BAL studies pending with initial culture showing nicholas only. No antifungal at this time but defer to pulm if desired. (3) Atrial flutter with rapid ventricular response Code(s): I48.92 - UNSPECIFIED ATRIAL FLUTTER Status: Acute Plan: Pt had RAPHAEL and successful cardioversion on 12/10. Well controlled now in sinus. Occasional bradycardia. On amio drip and oral dilt and metoprolol. Cards and EP consulted. Dr. Pina was considering ablation although now feels pt is too sick currently. May consider outpt. Appreciate further cards assistance. (4) Primary cancer of right lung Code(s): C34.91 - MALIGNANT NEOPLASM OF UNSP PART OF RIGHT BRONCHUS OR LUNG Status: Acute Plan: Underlying issue that complicates overall care is this and primary colon cancer. Per pulm notes, there is presumed metastatic disease. Being treated outpatient. (5) Primary colon cancer Code(s): C18.9 - MALIGNANT NEOPLASM OF COLON, UNSPECIFIED Status: Acute Plan: See above. (6) Iron deficiency anemia Code(s): D50.9 - IRON DEFICIENCY ANEMIA, UNSPECIFIED Status: Acute Qualifiers: Iron deficiency anemia type: chronic blood loss Qualified Code(s): D50.0 - Iron deficiency anemia secondary to blood loss (chronic) Plan: Iron deficiency likely from blood loss with colon cancer and potentially treatments being performed for his cancer. Has required 2 units pRBCs with last given yesterday. Hgb improved from 7.1 to 8.5 this AM. Monitor. No suspicion currently for acute blood loss. (7) Protein calorie malnutrition Code(s): E46 - UNSPECIFIED PROTEIN-CALORIE MALNUTRITION Status: Acute Plan: Worsened by cancer. Dietitian involved. Tube feeds currently while intubated. (8) CAD (coronary artery disease), ute coronary artery Code(s): I25.10 - ATHSCL HEART DISEASE OF [place] CORONARY ARTERY W/O ANG PCTRS Status: Acute Plan: Home meds <Aravind Cochran - Last Filed: 12/12/16 06:38> Attending Addendum - Attending Addendum I personally evaluated the patient and discussed the management with [Abhay Cochran] I agree with the History, Examination, Assessment and Plan documented above with any addition or exceptions noted below. Remains intubated and sedated. Attempt to wean per pulm. Heart rate in sinus rhythm. <Mukul Canales - Last Filed: 12/12/16 10:33>
[2016-12-12 07:09] LABS: Oxyhemoglobin 94.7 % (94.0-97.0); Sodium 139 mmol/L (135-148)
[2016-12-12 07:11] LABS: Modified Allen's Test POSITIVE; Vent YES
[2016-12-12 07:12] LABS: I Time 1.05 sec; Mode BI-LEVEL 29/12; PIP 32 cmH2O; Pressure Support 15 cmH2O; Spontaneous Rate 7 min
[2016-12-12] MEDS: Propofol 1,000 MG/100 ML VIAL IV PRN ×2 (08:14→14:30)
[2016-12-12] MEDS: Folic Acid 1 MG TAB PO SCH (08:22)
[2016-12-12] MEDS: Tamsulosin HCl 0.4 MG CAP PO SCH (08:22)
[2016-12-12] MEDS: Apixaban 5 MG TAB PO SCH ×2 (08:22→20:37)
[2016-12-12] MEDS: Digoxin 0.125 MG TAB PO SCH (08:22)
[2016-12-12] MEDS: Famotidine/PF 20 mg/2ml Vial SLOW IVP SCH ×2 (08:22→20:37)
[2016-12-12] MEDS: Cefepime 2 GM, Syringe 2.5 ML in Sterile Water 10 ML SLOW IVP SCH ×3 (10:11→23:43)
--- NOTE | 2016-12-12 10:36 | PRG ---
DATE OF SERVICE: 12/12/2016 A 35 minutes critical care time SUBJECTIVE: The patient remains intubated on mechanical ventilation. He is deeply sedated. OBJECTIVE: VITAL SIGNS: On exam, his temperature is 97.6 with no fever overnight, pulse in the 50s, blood pres sure 110/54. He is not requiring any vasopressors. A 24 intake 2968, output 1470. HEENT: Unremarkable. NECK: No JVD. LUNGS: Remarkable for coarse rhonchi bilaterally. CARDIOVASCULAR: S1, S2, slightly bradycardic. ABDOMEN: Soft, nontender. EXTREMITIES: Without clubbing, cyanosis, or edema. LABORATORY DATA: Hemoglobin 8.5, hematocrit 26.8, platelet count 102. PH 7.37, pCO2 of 39, pO2 77 and that is on bilevel, high pressure 29, low pressure 12, and FiO2 of 50%. Sodium 138, potassium 3 .5, chloride 106, CO2 22, BUN 22, creatinine 1.0, glucose 148. X-RAY FINDINGS: Chest x-ray shows slight improvement compared to yesterday. ASSESSMENT: 1. Acute hypoxic respiratory failure requiring mechanical ventilation. 2. Bilateral pulmonary infiltrates, indicative of pneumonia. 3. Metastatic colon cancer. 4. Status post cardioversion for atrial fibrillation. PLAN: 1. He is not weanable at this time. 2. Continue cefepime and Levaquin. 3. Await cytology from bronchoscopy yesterday. 4. Continue IV steroids. 5. Prognosis guarded.
--- NOTE | 2016-12-12 10:45 | RAD ---
CHEST ONE VIEW HISTORY: Dyspnea. Follow-up. COMPARISON: 12/11/2016. FINDINGS: Cardiac silhouette is magnified by projection. The patient is more rotated leftward on the current exam. Pulmonary vasculature remains engorged with patchy areas of infiltrate throughout each lung, similar in appearance to the previous exam. Lines and tubes are unchanged in position. Cardiac mon itor leads overlie the chest. IMPRESSION: Pulmonary vascular congestion, bilateral infiltrates, and other findings are stable. POS: MY
[2016-12-12] MEDS: Lorazepam 2 MG/ML VIAL SLOW IVP PRN (14:29)
--- NOTE | 2016-12-12 18:13 | EKG ---
Test Reason : HYPOXIA Blood Pressure : / mmHG Vent. Rate : 141 BPM Atrial Rate : 141 BPM P-R Int : 000 ms QRS Dur : 072 ms QT Int : 370 ms P-R-T Axes : 000 -12 008 degrees QTc Int : 566 ms Supraventricular tachycardia Low voltage QRS Nonspecific ST and T wave abnormality Abnormal ECG Confirmed by ANA LAURA Theodore, ALEXANDER ([id number]), avid editor BLANCA GRAHAM ([id number]) on 12/12/2016 6:13:03 PM Referred By: Confirmed By:ALEXANDER DU M.D.
--- NOTE | 2016-12-12 18:13 | EKG ---
Test Reason : HYPOXIA Blood Pressure : / mmHG Vent. Rate : 093 BPM Atrial Rate : 288 BPM P-R Int : 000 ms QRS Dur : 074 ms QT Int : 294 ms P-R-T Axes : 028 -18 -06 degrees QTc Int : 365 ms Atrial flutter with 3:1 A-V conduction Low voltage QRS Nonspecific ST abnormality Abnormal ECG Confirmed by ALEXANDER DU M.D. ([id number]), editor newspaper BLANCA GRAHAM ([id number]) on 12/12/2016 6:13:06 PM Referred By: Confirmed By:ALEXANDER DU M.D.
[2016-12-13] MEDS: Propofol 1,000 MG/100 ML VIAL IV PRN ×2 (03:57→19:12)
[2016-12-13 04:42] LABS: #Eosinphils 0.2 thou/uL (0.0-0.7); #Lymphocytes 0.5 thou/uL (1.20-3.40); #Monocytes 0.4 thou/uL (0.11-0.59); %Basophils 0.1 % (0.0-1.0); %Eosinophils 2.5 % (0.0-10.0); %Lymphocytes 5.3 % (21.0-51.0); %Monocytes 4.7 % (0.0-10.0); Hematocrit 27.6 % (42.0-52.0); Mean Platelet Volume 8.3 fL (7.4-10.4); Red Blood Cell (RBC) Count 2.48 mill/uL (4.70-6.10); White Blood Cell (WBC) Count 9.1 thou/uL (4.8-10.8)
[2016-12-13 06:58] LABS: Oxyhemoglobin 87.4 % (94.0-97.0); Sodium 139 mmol/L (135-148)
[2016-12-13 07:06] LABS: I Time 1.05 sec; Modified Allen's Test POSITIVE; Pressure Support 15 cmH2O; Vent YES
[2016-12-13 07:07] LABS: Mode BILEVEL 29/12
--- NOTE | 2016-12-13 07:11 | PDOC.FM ---
- Subjective Subjective: Pt sedated and intubated. Nursing states residuals elevated on initiation of tube feeds overnight. No BM in 3 days. UOP stable overnight. Mildly hypotensive this AM. - Objective MAR Reviewed: Yes Vital Signs & Weight: Vital Signs (12 hours) Temp Pulse Resp BP Pulse Ox 12/13/16 06:18 56 L 96/52 L 12/13/16 06:17 56 L 23 H 93 L 12/13/16 06:00 24 H 12/13/16 04:00 97.9 F 25 H 12/13/16 02:32 55 L 25 H 97 12/13/16 02:00 21 H 12/13/16 00:00 97.8 F 18 12/12/16 22:20 61 30 H 95 12/12/16 22:00 34 H Weight Admit Weight 91.626 kg Weight 98.8 kg Most Recent Monitor Data Heart Rate from ECG 53 NIBP 96/52 NIBP BP-Mean 61 Respiration from ECG 2 SpO2 95 I&O: 12/12/16 12/13/16 12/14/16 07:59 06:59 06:59 Intake Total Output Total Balance Result Diagrams: 12/13/16 04:15 12/12/16 04:30 EKG Reviewed by me: Yes Radiology Reviewed by me: Yes <Aravind Cochran - Last Filed: 12/13/16 07:10> - Objective Vital Signs & Weight: Vital Signs (12 hours) Temp Pulse Resp BP Pulse Ox 12/13/16 10:00 31 H 12/13/16 08:00 97.7 F 57 L 26 H 95 12/13/16 06:18 56 L 96/52 L 12/13/16 06:17 56 L 23 H 93 L 12/13/16 06:00 24 H 12/13/16 04:00 97.9 F 25 H 12/13/16 02:32 55 L 25 H 97 12/13/16 02:00 21 H 12/13/16 00:00 97.8 F 18 Weight Admit Weight 202 lb Weight 217 lb 13.067 oz Most Recent Monitor Data Heart Rate from ECG 56 NIBP 102/53 NIBP BP-Mean 80 Respiration from ECG 7 SpO2 94 I&O: 12/12/16 12/13/16 12/14/16 07:59 06:59 06:59 Intake Total 30 Output Total 535 Balance -505 Result Diagrams: 12/13/16 04:15 12/12/16 04:30 <Mukul Canales - Last Filed: 12/13/16 10:38> Phys Exam - Physical Examination intubated and sedated HEENT: PERRLA, moist MMs intubated Respiratory: no wheezing upper airway transmitted noise bilaterally Cardiovascular: RRR, no significant murmur Gastrointestinal: soft, no distention Musculoskeletal: no edema, pulses present Deviation from normal: sedated <Aravind Cochran - Last Filed: 12/13/16 07:10> Dx/Plan (1) Acute respiratory failure with hypoxia Code(s): J96.01 - ACUTE RESPIRATORY FAILURE WITH HYPOXIA Status: Acute Plan: Pt currently sedated and mechanically ventilated following RAPHAEL and cardioversion on 12/10. Currently unable to wean due to PNA, primary lung cancer , and overall health status. Pulm following and managing vent. Bilevel for better oxygenation. ABG this AM shows mild acidosis that appears metabolic. Attempt to wean daily per pulm. No acute events. (2) Community acquired bacterial pneumonia Code(s): J15.9 - UNSPECIFIED BACTERIAL PNEUMONIA Status: Acute Plan: Continue IV abx. CXR today shows continued bilateral opacities per my impression. Pt is sedated. Afebrile. BAL studies pending with initial culture showing nicholas only. No antifungal at this time but defer to pulm if desired. (3) Atrial flutter with rapid ventricular response Code(s): I48.92 - UNSPECIFIED ATRIAL FLUTTER Status: Acute Plan: Pt had RAPHAEL and successful cardioversion on 12/10. Well controlled now in sinus. Occasional bradycardia. On amio drip. Oral meds were stopped yesterday by cards. Cards and EP both involved. Dr. Pina was considering ablation although now feels pt is too sick currently. May consider outpt. Appreciate further cards assistance. (4) Primary cancer of right lung Code(s): C34.91 - MALIGNANT NEOPLASM OF UNSP PART OF RIGHT BRONCHUS OR LUNG Status: Acute Plan: Underlying issue that complicates overall care is this and primary colon cancer. Per pulm notes, there is presumed metastatic disease. Being treated outpatient (5) Primary colon cancer Code(s): C18.9 - MALIGNANT NEOPLASM OF COLON, UNSPECIFIED Status: Acute Plan: See above (6) Iron deficiency anemia Code(s): D50.9 - IRON DEFICIENCY ANEMIA, UNSPECIFIED Status: Acute Qualifiers: Iron deficiency anemia type: chronic blood loss Qualified Code(s): D50.0 - Iron deficiency anemia secondary to blood loss (chronic) Plan: Iron deficiency likely from blood loss with colon cancer and potentially treatments being performed for his cancer. Has required 2 units pRBCs with last given yesterday. Hgb remains at 8.5 this AM. Monitor. No suspicion currently for acute blood loss (7) Protein calorie malnutrition Code(s): E46 - UNSPECIFIED PROTEIN-CALORIE MALNUTRITION Status: Acute Plan: Worsened by cancer. Dietitian involved. Tube feeds started yesterday but residuals 250 x2 so held by nursing. Reeval today. Bowel regimen in place. (8) CAD (coronary artery disease), [place] coronary artery Code(s): I25.10 - ATHSCL HEART DISEASE OF [place] CORONARY ARTERY W/O ANG PCTRS Status: Acute Plan: Home meds. <Aravind Cochran - Last Filed: 12/13/16 07:10> Attending Addendum - Attending Addendum I personally evaluated the patient and discussed the management with [Abhay Cochran] I agree with the History, Examination, Assessment and Plan documented above with any addition or exceptions noted below. Remains intubated. Retry tube feeds today. <Mukul Canales - Last Filed: 12/13/16 10:38>
[2016-12-13] MEDS ORDERED: Furosemide 20 MG/2 ML VIAL IVP SCH (07:45)
[2016-12-13] MEDS ORDERED: Bisacodyl 5 MG TAB PO ONE (08:00)
[2016-12-13] MEDS ORDERED: Furosemide 40 MG/4 ML VIAL SLOW IVP SCH (08:00)
--- NOTE | 2016-12-13 08:04 | RAD ---
CHEST 1 VIEW: Date: 12/13/16 HISTORY: Chest pain. Dyspnea. COMPARISON: 12/12/16. FINDINGS: Cardiac silhouette is magnified by projection. Pulmonary vasculature remains engorged with patchy ar eas of parenchymal infiltrate throughout each lung, similar in appearance to the prior study. Lines and tubes appear unchanged in position. bus monitor leads overlie the chest. IMPRESSION: Pulmonary vascular congestion and other findings are stable. POS: DAVIS
[2016-12-13] MEDS: Sodium Chloride 0.9% 1,000 ML IV SCH (08:48)
[2016-12-13] MEDS: Famotidine/PF 20 mg/2ml Vial SLOW IVP SCH ×2 (08:50→20:54)
[2016-12-13] MEDS: Tamsulosin HCl 0.4 MG CAP PO SCH (08:50)
[2016-12-13] MEDS: Apixaban 5 MG TAB PO SCH ×2 (08:50→20:55)
[2016-12-13] MEDS: Folic Acid 1 MG TAB PO SCH (08:50)
[2016-12-13] MEDS: Cefepime 2 GM, Syringe 2.5 ML in Sterile Water 10 ML SLOW IVP SCH ×2 (08:54→17:19)
--- NOTE | 2016-12-13 09:11 | PRG ---
DATE OF SERVICE: 12/13/2016 Thirty-five minutes critical care time. SUBJECTIVE: The patient remains intubated on mechanical ventilation. There have been significant p roblems with O2 sats overnight. PHYSICAL EXAMINATION: VITAL SIGNS: Temperature 97.9, pulse 53, blood pressure 96/52. A 24-hour intake 3382, output 1230. Weight 217 pounds, up 10 pounds from yesterday. HEENT: Unremarkable. NECK: No JVD. LUNGS: Coarse breath sounds. CARDIOVASCULAR: S1 and S2 regular. ABDOMEN: Soft, slightly distended, decreased bowel movements. EXTREMITIES: No edema. LABORATORY DATA: White blood cell count 9.1, hematocrit 27.6, platelet count 101. Chemistry was no t done today. PH 7.31, pCO2 of 40, pO2 63 on bilevel rate18, high pressure 29, low pressure 12, ins piratory time 1.05 seconds, FiO2 50%. ASSESSMENT: 1. Acute respiratory failure requiring mechanical ventilation - etiology acute respiratory distress syndrome versus metastatic cancer versus atypical pulmonary edema. 2. Metastatic colon cancer. 3. Status post cardioversion for atrial fibrillation. PLAN: 1. Try to diurese as he is 10 pounds fluid overload from yesterday. 2. Continue cefepime and Levaquin. 3. Await cytology from bronchoscopy. 4. Adjust the ventilator settings. 5. Prognosis is quite poor.
[2016-12-13] MEDS: Amiodarone HCl 450 MG, Admixture Fee 1 EACH in Dextrose 5% in Water 250 ML IVPB SCH ×3 (11:51)
[2016-12-13] MEDS: Metoclopramide HCl 10 MG/2 ML VIAL IVP SCH ×2 (14:47→21:01)
[2016-12-14] MEDS: Cefepime 2 GM, Syringe 2.5 ML in Sterile Water 10 ML SLOW IVP SCH ×3 (00:29→16:38)
[2016-12-14] MEDS: Sodium Chloride 0.9% 1,000 ML IV SCH (00:30)
[2016-12-14] MEDS: Propofol 1,000 MG/100 ML VIAL IV PRN (00:30)
[2016-12-14] MEDS: Amiodarone HCl 450 MG, Admixture Fee 1 EACH in Dextrose 5% in Water 250 ML IVPB SCH ×6 (02:11→19:33)
[2016-12-14 04:45] LABS: #Eosinphils 0.4 thou/uL (0.0-0.7); #Lymphocytes 0.8 thou/uL (1.20-3.40); #Monocytes 0.5 thou/uL (0.11-0.59); #Neutrophils 12.5 thou/uL (1.40-6.50); %Eosinophils 2.6 % (0.0-10.0); %Lymphocytes 5.6 % (21.0-51.0); %Monocytes 3.5 % (0.0-10.0); Hematocrit 30.7 % (42.0-52.0); Mean Platelet Volume 9.1 fL (7.4-10.4); Red Blood Cell (RBC) Count 2.71 mill/uL (4.70-6.10); White Blood Cell (WBC) Count 14.1 thou/uL (4.8-10.8)
[2016-12-14 04:53] LABS: Anion Gap 13 mmol/L (10-20); BUN (Urea Nitrogen) 46 mg/dL (8.4-25.7); Calc. Creatinine Clearance 70 mL/min (70-130); Calcium 8.3 mg/dL (7.8-10.44); Carbon Dioxide 23 mmol/L (23-31); Chloride 109 mmol/L (98-107); Estimated GFR-MDRD 54
[2016-12-14] MEDS: Metoclopramide HCl 10 MG/2 ML VIAL IVP SCH ×3 (05:28→21:12)
[2016-12-14 06:47] LABS: Oxyhemoglobin 90.9 % (94.0-97.0); Sodium 140 mmol/L (135-148)
[2016-12-14 06:53] LABS: Mode BILEVEL; Modified Allen's Test POSITIVE; PIP 34 cmH2O; Peep/CPAP 14.5 cmH2O; Pressure Support 15 cmH2O; Vent YES
--- NOTE | 2016-12-14 08:15 | PDOC.FM ---
Addendum entered and electronically signed by Chandrakant Askew MD 12/14/16 09: 01: Correction, change vanc to levaquin under problem #1 Addendum entered and electronically signed by Chandrakant Askew MD 12/14/16 08: 57: Add to problem list: CHARLY - Likely 2/2 lasix use yesterday - Pt up another 3L w/ diuretic use - Transthoracic echo pending - Will decrease maintenance rate to KVO as he is getting large amount of IVF w/ antibiotics and amio gtt - Concern for possible overload which would complicate respiratory issues even further - Will repeat BMP in the AM to monitor mild CHARLY Original Note: - Subjective Subjective: Pt requiring increased O2 requirement on Bipap mechanical ventilation overnight. Was given sedation holiday yesterday w/ desaturation into mid 80's per nursing staff. Pt able to shake head yes and no and track with eyes per nursing when off sedation. Per family, Dr. Esparza (outside hospital oncologist) spoke with Dr. Pelayo who is to evaluate patient. Started on bowel regimen yesterday w/ improved tube feeding residuals but still w/o BM. Vitals stable on increased O2 requirement this AM w/ SaO2 low 90's. Afebrile. - Objective MAR Reviewed: Yes Vital Signs & Weight: Vital Signs (12 hours) Temp Pulse Resp BP Pulse Ox 12/14/16 08:00 98.1 F 12/14/16 06:30 76 102/58 L 12/14/16 06:26 77 25 H 95 12/14/16 06:00 30 H 12/14/16 05:00 98.2 F 12/14/16 04:00 28 H 12/14/16 02:37 77 12/14/16 02:36 74 20 93 L 12/14/16 02:00 19 12/14/16 00:00 98.2 F 22 H 12/13/16 22:21 72 12/13/16 22:20 76 31 H 97 12/13/16 22:00 32 H Weight Admit Weight 91.626 kg Weight 99.1 kg Most Recent Monitor Data Heart Rate from ECG 100 NIBP 120/66 NIBP BP-Mean 82 Respiration from ECG 18 SpO2 92 I&O: 12/13/16 12/14/16 12/15/16 06:59 06:59 06:59 Intake Total 5010.6 Output Total 1952 135 Balance 3057.6 -135 Result Diagrams: 12/14/16 03:30 12/14/16 03:30 <Chandrakant Askew - Last Filed: 12/14/16 08:13> - Objective Vital Signs & Weight: Vital Signs (12 hours) Temp Pulse Resp BP Pulse Ox 12/14/16 10:59 84 105/60 12/14/16 10:58 84 22 H 94 L 12/14/16 10:00 19 12/14/16 08:00 98.1 F 83 30 H 94 L 12/14/16 06:30 76 102/58 L 12/14/16 06:26 77 25 H 95 12/14/16 06:00 30 H 12/14/16 05:00 98.2 F 12/14/16 04:00 28 H 12/14/16 02:37 77 12/14/16 02:36 74 20 93 L 12/14/16 02:00 19 12/14/16 00:00 98.2 F 22 H Weight Admit Weight 91.626 kg Weight 99.1 kg Most Recent Monitor Data Heart Rate from ECG 83 NIBP 105/60 NIBP BP-Mean 72 Respiration from ECG 20 SpO2 94 I&O: 12/13/16 12/14/16 12/15/16 06:59 06:59 06:59 Intake Total 5010.6 Output Total 1952 258 Balance 3057.6 -258 Result Diagrams: 12/14/16 03:30 12/14/16 03:30 <Laure Perez - Last Filed: 12/14/16 11:31> Phys Exam - Physical Examination Constitutional: NAD HEENT: PERRLA, oral pharynx no lesions Respiratory: clear to auscultation bilateral tachycardic, no murmur distended, + bowel sounds. trace pedal edema b/l sedated Deviation from normal: sedated Skin: no rash <Chandrakant Askew - Last Filed: 12/14/16 08:13> Dx/Plan (1) Acute respiratory failure with hypoxia Code(s): J96.01 - ACUTE RESPIRATORY FAILURE WITH HYPOXIA Status: Acute Plan: Pt intially w/ intubation per cards and EP for cardioversion for a-flutter w/ RVR W/ underlying lung pathology, has been unable to wean s/p intubation Concern for alveolar involvement of lung malignancy primary causing this Pt w/ increased O2 demands overnight now on Bi-level 34/14.5 at 65% FiO2 ABG this AM appears to be mixed respiratory and metabolic acidosis Metabolic component likely 2/2 fluids as pt was +3L overnight and w/ 5L total in Repeat CXR this AM grossly unchanged from prior studies BAL preliminary showing nicholas species which is likely contaminant, discussed w / pulm and will hold off treating at this time BAL cytology to confirm alveolar spread of lung cancer pending, but likely will result later today If cytology is positive, it is very unlikely that patient will be able to be weaned as this is not a reversible process Pulm/Crit care has discussed this with family this AM who understands this Will continue to treat presumed underlying CAP w/ IV Vanc and Cefepime until cytology is confirmed Cont. w/ mechanical ventilation with GI and DVT ppx (2) Atrial flutter with rapid ventricular response Code(s): I48.92 - UNSPECIFIED ATRIAL FLUTTER Status: Acute Plan: S/p cardioversion per cards and EP Cont. w/ amiodarone gtt per consultants reccomendations Cont. w/ eliquis per proposal consultant reccomendations (3) Community acquired bacterial pneumonia Code(s): J15.9 - UNSPECIFIED BACTERIAL PNEUMONIA Status: Acute Plan: CTA showing possible atypical pneumonia Will continue to treat presumptive infection per Pulm/crit care, however spread of lung malignancy is more likely cause of sxs and difficulty weaning from vent Will kilgore-culture if pt becomes febrile Cultures NGTD (4) Primary cancer of right lung Code(s): C34.91 - MALIGNANT NEOPLASM OF UNSP PART OF RIGHT BRONCHUS OR LUNG Status: Acute Plan: Pending Oncology reccomendations See #1 (5) Primary colon cancer Code(s): C18.9 - MALIGNANT NEOPLASM OF COLON, UNSPECIFIED Status: Acute Plan: Pending oncology reccomendations Pt undergoing chemo and radiation outpatient for the past 3 weeks No BM, started on bowel regimen w/ dulcolax and reglan w/ improved residuals Will have low threshold in considering possible obstruction (6) Protein calorie malnutrition Code(s): E46 - UNSPECIFIED PROTEIN-CALORIE MALNUTRITION Status: Acute Plan: Cont. w/ tube feeds per nutrition Improved residuals s/p intiation of reglan (7) Iron deficiency anemia Code(s): D50.9 - IRON DEFICIENCY ANEMIA, UNSPECIFIED Status: Acute Qualifiers: Iron deficiency anemia type: chronic blood loss Qualified Code(s): D50.0 - Iron deficiency anemia secondary to blood loss (chronic) Plan: Likely 2/2 chronic blood loss from colon cancer s/p 2U PRBC earlier in hospital stay Hgb stable this AM Will continue to monitor and transfuse if w/ acute blood loss or w/ Hgb <7 <Chandrakant Askew - Last Filed: 12/14/16 08:13> Attending Addendum - Attending Addendum I personally evaluated the patient and discussed the management with Dr. Askew on 12/14/16. I agree with the History, Examination, Assessment and Plan documented above with any addition or exceptions noted below. Respiratory status is worsening despite continued intubation. Cytology from BAL is pending, likely due out today. Pending Dr. Pelayo recommendations. Family understands his poor prognosis. Most likely outcome will be inpatient hospice, but will await full results before proceeding with family discussion. In meantime, continues to be severely constipated. Some bowel sounds c/w possible SBO noted today, will obtain KUB. If no air-fluid levels, will proceed with aggressive bowel regimen. <Laure Perez - Last Filed: 12/14/16 11:31>
--- NOTE | 2016-12-14 08:22 | PRG ---
DATE OF SERVICE: 12/14/2016 This morning he is intubated on the vent. Fentanyl and Diprivan on board. PHYSICAL EXAMINATION: VITAL SIGNS: Blood pressure is 103/58, pulse 113, sats 90% on bilateral, low PEEP of 14, FiO2 60%. I's \T\ O's have been 3382 in, 1230 out. CHEST: Reveals decreased breath sounds without any wheezing. CARDIAC: Normal S1-S2. No gallops. ABDOMEN: Soft. No masses. So far bronch washings are significant for Yoly. LABORATORY DATA: White count 14,000, H\T\H is 9 and 30, platelet count is 100. X-ray shows bilateral infiltrates. PO2 is 75, pCO2 57.21, 18, 60%. Creatinine is 1.3, BUN 46. X-ray as noted. IMPRESSION: 1. Respiratory failure. 2. Adult respiratory distress syndrome. 3. History of metastatic cancer. 4. Status post supraventricular tachycardia. PLAN: He is clearly not weanable. Will discuss with family when they arrive. Awaiting path report . Steroids, Maxipime, and Levaquin, amiodarone. Supportive care. I will follow. One-half hour critical care time.
[2016-12-14] MEDS: Apixaban 5 MG TAB PO SCH ×2 (08:30→21:36)
[2016-12-14] MEDS: Famotidine/PF 20 mg/2ml Vial SLOW IVP SCH (08:30)
[2016-12-14] MEDS: Folic Acid 1 MG TAB PO SCH (08:30)
[2016-12-14] MEDS: Tamsulosin HCl 0.4 MG CAP PO SCH (08:31)
--- NOTE | 2016-12-14 09:14 | RAD ---
SEMIUPRIGHT PORTABLE CHEST: HISTORY: A 76-year-old male with respiratory insufficiency following intubation. COMPARISON: 12/12/16. FINDINGS: NG tube and endotracheal tube are in satisfactory location. Right subclavian catheter and injection port. Stable extensive bilateral alveolar and interstitial opacities throughout both lungs. IMPRESSION: Stable extensive bilateral alveolar and interstitial opacities and pleural effusions unchanged from 12/12/16. Life support tubes in place. POS: OFF
[2016-12-14] MEDS: Docusate 100 MG CAP PO SCH ×2 (11:05→21:12)
--- NOTE | 2016-12-14 11:11 | RAD ---
KUB: 12/14/2016 HISTORY: Evaluate for small bowel obstruction. COMPARISON: 06/20/2010 FINDINGS: There is a nasogastric tube extending into the left upper quadrant, likely within the gastric body. Supine imaging is provided, limiting assessment for small bowel obstruction and free intraperitonea l air. No dilated gas-filled small bowel is seen. A dilated fluid-filled small bowel cannot be exc luded on radiographs. Prominent degenerative osteophyte formation is noted in the upper lumbar spin e. IMPRESSION: Nasogastric tube in place. No dilated, gas-filled small bowel seen. POS: [facility]
--- NOTE | 2016-12-14 12:39 | CON ---
DATE OF CONSULTATION: 12/14/2016 REASON FOR CONSULTATION: Lung cancer. HISTORY OF PRESENT ILLNESS: Mr. Chapman is a 76-year-old gentleman who is undergoing treatment with maintenance Alimta for stage 4 adenocarcinoma of the lung. He also has a stage 1 colon cancer. He was admitted to this facility for the stent to his right leg. He is seen by Dr. Hagan. He also was having tachycardia for over a month and is being seen by Electrophysiology. Unfortunately, he began to have some respiratory distress and required intubation. Chest x-ray showed extensive bilateral infiltrates. He was started on IV steroids and antibiotics. Bronchoscopy was done by Dr. Conti. Cytology has returned with no malignant cells. He has required increasing supportive care per ventilator over the last few days. We were asked to see the patient for any recommendations regarding his lung cancer. PAST MEDICAL HISTORY: 1. Stage 4 adenocarcinoma of the lung. 2. Stage 1 colon cancer. 3. High cholesterol. 4. Coronary artery disease. 5. Degenerative joint disease. 6. Gout. 7. Benign prostatic hyperplasia. 8. Peripheral vascular disease. PAST SURGICAL HISTORY: 1. Cardiac stents. 2. Right knee surgery. 3. Back surgery. 4. Appendectomy. 5. TURP. FAMILY HISTORY: Mother from ovarian cancer. SOCIAL HISTORY: , has 2 children, 43-year smoking history. Unknown alcohol use. ALLERGIES: No known drug allergies. HOME MEDICATIONS: 1. Atorvastatin 40 mg daily.. 2. Lasix 40 mg daily. 3. Flomax 0.4 mg daily. 4. Metoprolol succinate 25 mg b.i.d. 5. Lorazepam p.r.n. 6. Protonix 40 mg daily. 7. [place] p.r.n. 8. Dexamethasone 4 mg b.i.d. REVIEW OF SYSTEMS: Unable to obtain secondary to intubation and sedation. PHYSICAL EXAMINATION: VITAL SIGNS: Temperature 98.1, pulse is 84, respiratory rate 20, BP is 105/60. He is 94% on 65% O2. GENERAL: Chronically ill-appearing male, sedated. HEENT: Normocephalic, atraumatic. NECK: Supple. CARDIOVASCULAR: Irregular rate. LUNGS: Coarse throughout. ABDOMEN: Soft. Bowel sounds are positive. EXTREMITIES: He has got 1+ edema. SKIN: No rash. HEMATOLOGIC: No petechiae or purpura. NEUROLOGICAL: He is sedated; unable to assess. PERTINENT LABORATORY AND X-RAYS: Current WBCs are 14.1, hemoglobin 9.1, hematocrit 30.7, platelet count is 100,000, 88% neutrophils, 6% lymphocytes. Sodium 140, potassium 4.5, chloride 109, CO2 is 23, BUN is 46, creatinine 1.3. Radiology per HPI. IMPRESSION: 1. Stage 4 lung cancer. 2. Respiratory failure. 3. Atrial fibrillation, on amiodarone. DISCUSSION: I discussed with the family that, although his bronchial washings were negative, his lung cancer is certainly the driving force behind the respiratory failure. He likely also has an infection. He was in atrial flutter. We discussed that this is a complicated multiorgan issue, and hopefully, he will begin to recover over the next week or so. We discussed end of life issues including a tracheostomy. They state that their father would not want to be on life support for a prolonged period of time. Recommend giving him a few days to recover. If he continues to decline, withdrawal of care with have to be discussed. We will discuss the case further with Dr. Pelayo. Thank you for the consult. OK
[2016-12-14 14:16] LABS: #Eosinphils 0.3 thou/uL (0.0-0.7); #Lymphocytes 0.3 thou/uL (1.20-3.40); #Monocytes 0.4 thou/uL (0.11-0.59); #Neutrophils 11.6 thou/uL (1.40-6.50); %Basophils 0.2 % (0.0-1.0); %Eosinophils 2.3 % (0.0-10.0); %Lymphocytes 2.2 % (21.0-51.0); %Monocytes 2.8 % (0.0-10.0); Hematocrit 30.6 % (42.0-52.0); Mean Platelet Volume 9.2 fL (7.4-10.4); Red Blood Cell (RBC) Count 2.66 mill/uL (4.70-6.10); White Blood Cell (WBC) Count 12.5 thou/uL (4.8-10.8)
--- NOTE | 2016-12-14 14:56 | PRG ---
DATE OF SERVICE: 12/14/2016 REFERRING PHYSICIAN: Dr. Hagan I am seeing Mr. Chapman at our [facility] telemetry floor as an electrophysiology follow up. SUBJECTIVE: Mr. Chapman is intubated, sedated, remained hemodynamically stable over the weekend, but so far deemed not weanable due to his respiratory status. His heart rate remained steady over the w eekend on amiodarone drip. OBJECTIVE: VITAL SIGNS: Blood pressure is 105/60, heart rate 84, respirations 22. The patient is intubated, v entilated and sedated. GENERAL: Reveals difficult to assess jugular veins. CHEST: Coarse bilaterally. CARDIOVASCULAR: Heart sounds are regular rate and rhythm. No murmur or gallop. ABDOMEN: Benign. Bowel sounds are positive. NG tube in place. EXTREMITIES: Lower extremities without edema, clubbing or cyanosis. DATABASE: Chest x-ray from this morning reveals extensive bilateral alveolar and interstitial opaci ties, pleural effusion unchanged from 12/12/2016. ET tube in place. Telemetry strips reveals sinus rhythm. No significant ST-T changes, occasional sinus tachycardia. LABORATORY DATA: White count is 14.1, hemoglobin 9.1, improved from last week, platelet count is 10 0, sodium 140, potassium 4.5, BUN is 13, AST 46, creatinine is 1.3, AST and ALT are 47 and 38. ASSESSMENT AND PLAN: Mr. Chapman is an unfortunate 76-year-old man with history of lung cancer, now p rogressed into respiratory failure who also had persistent atrial flutter. We were considering an a blation procedure, but his clinical status worsened, eventually with IV amiodarone was successfully converted back to sinus rhythm. PLAN: 1. For now I think he is a poor candidate for invasive procedures, likely medical management is josefa sonable for now, continue IV amiodarone, which could be converted to p.o. amiodarone once he can yareli e pills. 2. Respiratory failure, etiology is not clear, adult respiratory distress syndrome versus metastati c cancer versus continued pulmonary edema are considerations. 3. Diastolic heart failure. Status post diureses. 4. Thrombocytopenia. 5. Elevated white cell count.
--- NOTE | 2016-12-14 15:45 | PRG ---
DATE OF SERVICE: 12/14/2016 SUBJECTIVE: Mr. Chapman unfortunately continues to be intubated. He is sedated. He has failed weani ng extubation protocol. OBJECTIVE: VITAL SIGNS: Blood pressure 100/58, pulse 90, temperature afebrile. LUNGS: Rhonchi and rales bilaterally. CARDIAC: Regular rate and rhythm. ABDOMEN: Soft, nontender, nondistended. EXTREMITIES: No edema. PERTINENT LABORATORY DATA: Hemoglobin 9.6, creatinine 1.3. IMPRESSION: 1. Bronchopneumonia versus metastatic lung cancer -- cytology pending of bronchial washings 2. Atr ial fibrillation, status post cardioversion -- patient continues to maintain sinus rhythm. Continue IV amiodarone. 3. Respiratory failure -- Further recommendations per Dr. Albert Conti. I had a long discussion with Mr. Chapman's daughter today. I am concerned that he was not able to ach ieve extubation parameters for extubation. There is certainly a concern for this being secondary to cancer. I discussed this with the daughter in addition to Dr. Albert Conti, who agrees.
[2016-12-14] MEDS: Pantoprazole 40 MG VIAL IVP SCH (16:39)
[2016-12-14 19:24] LABS: #Eosinphils 0.1 thou/uL (0.0-0.7); #Lymphocytes 0.4 thou/uL (1.20-3.40); #Monocytes 0.4 thou/uL (0.11-0.59); #Neutrophils 11.2 thou/uL (1.40-6.50); %Eosinophils 0.8 % (0.0-10.0); %Monocytes 3.2 % (0.0-10.0); Hematocrit 30.8 % (42.0-52.0); Mean Platelet Volume 8.9 fL (7.4-10.4); Red Blood Cell (RBC) Count 2.64 mill/uL (4.70-6.10)
[2016-12-14] MEDS: Fentanyl 20 MCG/ML 250 ML IVPB SCH (22:22)
[2016-12-15] MEDS: Cefepime 2 GM, Syringe 2.5 ML in Sterile Water 10 ML SLOW IVP SCH (00:34)
[2016-12-15] MEDS: Pantoprazole 40 MG VIAL IVP SCH ×2 (04:21→15:28)
[2016-12-15] MEDS: Propofol 1,000 MG/100 ML VIAL IV PRN ×2 (04:21→15:28)
[2016-12-15] MEDS: Sodium Chloride 0.9% 1,000 ML IV SCH ×2 (04:22→21:36)
[2016-12-15 05:20] LABS: Anion Gap 14 mmol/L (10-20); BUN (Urea Nitrogen) 72 mg/dL (8.4-25.7); Calc. Creatinine Clearance 49 mL/min (70-130); Calcium 8.2 mg/dL (7.8-10.44); Carbon Dioxide 21 mmol/L (23-31); Chloride 109 mmol/L (98-107); Estimated GFR-MDRD 36
[2016-12-15 05:25] LABS: #Eosinphils 0.1 thou/uL (0.0-0.7); #Lymphocytes 0.5 thou/uL (1.20-3.40); #Monocytes 0.4 thou/uL (0.11-0.59); #Neutrophils 11.2 thou/uL (1.40-6.50); %Eosinophils 0.7 % (0.0-10.0); %Lymphocytes 4.2 % (21.0-51.0); %Monocytes 3.3 % (0.0-10.0); Basophilic Stippling MODERATE = 3-5 cells (100X) (None Seen); Hematocrit 29.4 % (42.0-52.0); Mean Platelet Volume 8.9 fL (7.4-10.4); Polychromasia SLIGHT = 2-3 cells (100X) (0-2/hpf); Red Blood Cell (RBC) Count 2.53 mill/uL (4.70-6.10); White Blood Cell (WBC) Count 12.2 thou/uL (4.8-10.8)
[2016-12-15] MEDS: Metoclopramide HCl 10 MG/2 ML VIAL IVP SCH ×3 (05:31→21:35)
--- NOTE | 2016-12-15 06:33 | CON ---
DATE OF CONSULTATION: 12/14/2016 REASON FOR CONSULTATION: Bloody NG tube return. HISTORY OF PRESENT ILLNESS: Mr. Chapman is a 76-year-old who I saw earlier this year with iron-defici ency anemia. An EGD and colonoscopy were performed on 05/01/2016. EGD was normal with colonoscopy notable for malignancy at the hepatic flexure. Multiple polyps in the ascending colon were not gabriella michael. Transverse colon polyps removed with snare polypectomy, which were adenomas and 2 large polyps in the descending and sigmoid colon, which revealed to be villous adenomas as well. The patient al so had a CAT scan showed a possible lung mass that was apparently a screening test that was done by her primary physician. The patient was seen by Oncology in [place] and I have not seen the patient meghann short since that time apparently that he has been treated with radiation and chemo for lung cancer and the family reports in the most recent PET scan, there were no signs of colon cancer, but that was g jessica to be addressed next. Apparently, he has had no problems with bleeding from the lower GI tract and has tolerated therapy pretty well. When he became acutely ill on 12/07/2016, he came in with s hortness of breath, PND, and nonproductive cough, receiving some broad-spectrum antibiotics. He was seen by Cardiology. He was intubated on 12/10/2016. He had some bronchial washings from diffuse b ilateral infiltrates, which were negative. He has had RAPHAEL with cardioversion that was performed thi s morning. At this time, it is unclear if the patient has bronchopneumonia versus lung cancer. Bro nchial washing cytology has been negative, remains in respiratory failure. I was contacted today by the nurses for consultation and requested by family practice admitting service as they noticed a li ttle bit of red-tinged secretions coming back from the NG tube for possible bleeding. There have be en no signs of vomiting. He has had less than 100 mL out, which has been gastric contents with bloo d tinge and no overt clots. He has had no melena. The patient is intubated, unable to give history . Most of the interim history from when I diagnosed him with colon cancer comes from the daughter a nd family at the bedside. PRESENT MEDICATIONS: Tylenol, DuoNeb, amiodarone, Eliquis, aspirin, Dulcolax, Tums, Colace, fentany l, Folvite, levofloxacin, Ativan, Solu-Medrol 40 IV q. 6 hours, Reglan, p.r.n. morphine, Zofran, Pro tonix. He was on Pepcid for ulcer prophylaxis, tamsulosin, normal saline. PHYSICAL EXAMINATION: GENERAL: The patient is intubated. He is unresponsive. He is sedated. VITAL SIGNS: Pulse is 90, blood pressure 100/58. He is afebrile. LUNGS: Decreased breath sounds. ABDOMEN: Soft, protuberant but nontender. Bowel sounds are quiet. NG tube has some bright red blo od tinged with nasogastric secretions. There is no overt evidence of clots. ASSESSMENT: I believe he is having some bleeding from nasogastric tube trauma. The patient to have a RAPHAEL today; that will be also another possible etiology. RECOMMENDATIONS: Hold Eliquis, stop Pepcid, start Protonix, serial H\T\Hs, and monitor his NG tub e output. Presently, hemoglobin was 9.6 today, it was 9.1 yesterday. BUN and creatinine were 46 an d 1.3 today, from 22 and 1.03 yesterday. At this time, we will follow along with you and try to franny id any other invasive procedures if possible in light of his tenuous respiratory status. Hopefully, we will hold off NG tube suction for a time now as well.
[2016-12-15 07:05] LABS: Reticulocyte Count 3.4 % (0.5-1.5)
[2016-12-15 07:08] LABS: Oxyhemoglobin 91.2 % (94.0-97.0); Sodium 140 mmol/L (135-148)
[2016-12-15 07:19] LABS: Iron 67 ug/dL (65-175)
[2016-12-15 07:29] LABS: Band 3 % (5-11); Macrocytosis MODERATE=16-30 cells (100X) (0-5/hpf); Myelocyte 4 % (0-0); Neutrophil 90 % (42-75); Nucleated RBC 1 % (0)
[2016-12-15 07:40] LABS: Modified Allen's Test POSITIVE; Vent YES
[2016-12-15 07:41] LABS: Mode BILEVEL; PIP 34 cmH2O; Peep/CPAP 14.5 cmH2O; Pressure Support 15 cmH2O
[2016-12-15] MEDS ORDERED: Sodium Bicarb 50 MEQ/50 ML Abboject 8.4% SYRINGE IVP SCH (07:45)
[2016-12-15 07:46] LABS: PTT 31.3 SEC (22.9-36.1); Prothrombin Time 22.4 SEC (12.0-14.7)
[2016-12-15] MEDS: Docusate 100 MG CAP PO SCH ×2 (08:18→21:35)
[2016-12-15] MEDS: Folic Acid 1 MG TAB PO SCH (08:18)
[2016-12-15] MEDS: Bisacodyl 10 MG SUPP PR SCH (08:18)
[2016-12-15] MEDS: Polyethylene Glycol 3350 17 GM Packet PO SCH (08:19)
[2016-12-15] MEDS: Tamsulosin HCl 0.4 MG CAP PO SCH (08:19)
--- NOTE | 2016-12-15 08:32 | PDOC.FM ---
- Subjective Subjective: AIMEE overnight, tube feeds restarted and pt tolerating well with minimal residuals per nursing staff. Bleeding has stopped. Intubated and sedated this AM on continually increasing mechanical ventilation support. Still w/o BM this AM. Pulm spoke w/ [facility] oncologist who feels that this is likely metastatic disease as well. Family requesting transfer to [facility] but patient still on too high of PEEP to be transferred at this time. - Objective MAR Reviewed: Yes Vital Signs & Weight: Vital Signs (12 hours) Temp Pulse Resp BP Pulse Ox 12/15/16 07:00 97.9 F 12/15/16 06:39 90 108/52 L 12/15/16 06:36 89 27 H 93 L 12/15/16 06:00 20 12/15/16 04:00 98.0 F 22 H 12/15/16 02:08 84 103/47 L 12/15/16 02:00 20 12/15/16 00:00 97.8 F 24 H 12/14/16 22:00 20 12/14/16 21:59 84 113/59 L Weight Admit Weight 91.626 kg Weight 101.2 kg Most Recent Monitor Data Heart Rate from ECG 96 NIBP 118/50 NIBP BP-Mean 67 Respiration from ECG 16 SpO2 92 I&O: 12/14/16 12/15/16 12/16/16 06:59 06:59 06:59 Intake Total 5010.6 2024 49.3 Output Total 1952 988 200 Balance 3057.6 1036 -150.7 Result Diagrams: 12/15/16 04:37 12/15/16 04:37 <Chandrakant Askew K - Last Filed: 12/15/16 08:30> - Objective Vital Signs & Weight: Vital Signs (12 hours) Temp Pulse Resp BP Pulse Ox 12/15/16 10:18 90 101/40 L 12/15/16 10:17 87 31 H 96 12/15/16 10:00 24 H 12/15/16 08:00 97.8 F 89 24 H 97 12/15/16 07:00 97.9 F 12/15/16 06:39 90 108/52 L 12/15/16 06:36 89 27 H 93 L 12/15/16 06:00 20 12/15/16 04:00 98.0 F 22 H 12/15/16 02:08 84 103/47 L 12/15/16 02:00 20 12/15/16 00:00 97.8 F 24 H Weight Admit Weight 91.626 kg Weight 101.2 kg Most Recent Monitor Data Heart Rate from ECG 89 NIBP 117/43 NIBP BP-Mean 83 Respiration from ECG 25 SpO2 93 I&O: 12/14/16 12/15/16 12/16/16 06:59 06:59 06:59 Intake Total 5010.6 2023 209.3 Output Total 1952 988 340 Balance 3057.6 1036 -130.7 Result Diagrams: 12/15/16 04:37 12/15/16 04:37 <Laure Perez - Last Filed: 12/15/16 11:07> Phys Exam - Physical Examination Constitutional: NAD intubated/sedated HEENT: PERRLA Respiratory: no wheezing Cardiovascular: RRR distended, unchanged from yesterday. Rectal exam (-) for stool in vault Musculoskeletal: no edema, pulses present Deviation from normal: intubated/sedated Skin: no rash <Chandrakant Askew - Last Filed: 12/15/16 08:30> Dx/Plan (1) Acute respiratory failure with hypoxia Code(s): J96.01 - ACUTE RESPIRATORY FAILURE WITH HYPOXIA Status: Acute Plan: Pt intially w/ intubation per cards and EP for cardioversion for a-flutter w/ RVR W/ underlying lung pathology, has been unable to wean s/p intubation Concern for alveolar involvement of lung malignancy primary causing this which pulm/crit care and [facility] Oncologist believe is likely Pt w/ increased O2 demands overnight now on Bi-level 35/14.5 at 60% FiO2 and increased rate this AM ABG worsened this AM to 7.14 and w/ worsening renal function Spoke with crit care and plan to give 2 amps of bicarb as this is felt to be likely metabolic in nature Will continue w/ IVF at 50 cc/hr and w/ tube feeds/flushes as pt has continued to be net positive fluid balance Repeat CXR this AM grossly unchanged from prior studies BAL cytology w/o malignant cells identified Specialist and primary team have discussed with family at length the poor prognosis of the patient Will continue to treat presumed underlying CAP w/ IV levaquin and Cefepime Cont. w/ mechanical ventilation with GI and DVT ppx w/ SCD's 2/2 GI bleed and thrombocytopenia (2) Atrial flutter with rapid ventricular response Code(s): I48.92 - UNSPECIFIED ATRIAL FLUTTER Status: Acute Plan: S/p cardioversion per cards and EP Cont. w/ amiodarone gtt per cards recs cont. to hold eliquis 2/2 thrombocytopenia and bleed (3) Community acquired bacterial pneumonia Code(s): J15.9 - UNSPECIFIED BACTERIAL PNEUMONIA Status: Acute Plan: CTA showing possible atypical pneumonia Will continue to treat presumptive infection per Pulm/crit care, however spread of lung malignancy is more likely cause of sxs and difficulty weaning from vent Will kilgore-culture if pt becomes febrile Cultures NGTD (4) Primary cancer of right lung Code(s): C34.91 - MALIGNANT NEOPLASM OF UNSP PART OF RIGHT BRONCHUS OR LUNG Status: Acute Plan: Pending Oncology reccomendations See #1 (5) Primary colon cancer Code(s): C18.9 - MALIGNANT NEOPLASM OF COLON, UNSPECIFIED Status: Acute Plan: Pending oncology reccomendations Pt undergoing chemo and radiation outpatient for the past 3 weeks No BM, started on bowel regimen w/ dulcolax and reglan w/ improved residuals Will have low threshold in considering possible obstruction (6) Protein calorie malnutrition Code(s): E46 - UNSPECIFIED PROTEIN-CALORIE MALNUTRITION Status: Acute Plan: Cont. w/ tube feeds per nutrition Improved residuals s/p intiation of reglan (7) Iron deficiency anemia Code(s): D50.9 - IRON DEFICIENCY ANEMIA, UNSPECIFIED Status: Acute Qualifiers: Iron deficiency anemia type: chronic blood loss Qualified Code(s): D50.0 - Iron deficiency anemia secondary to blood loss (chronic) Plan: Likely 2/2 chronic blood loss from colon cancer Now macrocytic will check RBC folate and B12 and repeat iron studies s/p 2U PRBC earlier in hospital stay Hgb stable this AM Will continue to monitor and transfuse if w/ acute blood loss or w/ Hgb <7 (8) Thrombocytopenia Code(s): D69.6 - THROMBOCYTOPENIA, UNSPECIFIED Status: Acute Plan: Unsure eitiology at this time Continues to decline s/p discontinuation of eliquis Check haptoglobin, fibrinogen, retic count, peripheral smear, and coags this AM Will repeat this afternoon and transfuse if indicated (9) Constipation Code(s): K59.00 - CONSTIPATION, UNSPECIFIED Status: Acute Plan: Started on colace in addition to dulcolax yesterday KUB showing significant stool burden w/o air-fluid level concerning for obstruction No stool palpable in rectal vault this AM Upon chart review pt has not received dulcolax, will go ahead and schedule this in addition to scheduled colace and will add in miralax Do not feel pt will be able to tolerate enema at this time but will consider this in the future if no improvement (10) Hyperkalemia Code(s): E87.5 - HYPERKALEMIA Status: Acute Plan: 5.6 this AM confirmed w/ ABG as not being pseudohyperkalemia No bowel function at this time so will hold off giving kayexalate Will plan to repeat this afternoon <6 so no need for immediate treatment at this time, will give insulin and albuterol if indicated at repeat bmp <Chandrakant Askew - Last Filed: 12/15/16 08:30> Attending Addendum - Attending Addendum I personally evaluated the patient and discussed the management with Dr. Askew on 12/15/16. I agree with the History, Examination, Assessment and Plan documented above with any addition or exceptions noted below. KUB shows only constipation. Tube feeds held overnight from possible GI bleed, but jacques blood noted likely from trauma from intubation rather than GI bleed. Eliquis held, will restart tube feeds and resume laxatives to initiate BM today. Kidney function worsened, maintaining baseline urine output. No indications for dialysis at this time, will monitor. Acidosis worsening, likely a combination of respiratory from retained CO2 and metabolic for CHARLY and poor perfusion. Remains in NSR after cardioversion. Awaiting recommendations from Dr. Pelayo, but family understands patient's poor prognosis and possible need for withdrawal of care if he continues to decline. Patient is unstable for transfer at this time. <Laure Perez - Last Filed: 12/15/16 11:07>
--- NOTE | 2016-12-15 08:57 | RAD ---
SEMI UPRIGHT PORTABLE CHEST ONE VIEW: History: 76-year-old male with respiratory insufficiency and intubation. FINDINGS: NG tube, endotracheal tube, and right subclavian catheter injection port are noted. Extensive bilate ral alveolar and interstitial opacities throughout both lungs, overall stable from 11-6-17. IMPRESSION: Extensive bilateral alveolar and interstitial opacities throughout both lungs, stable. Probable bila teral pleural effusions, greater on the left side. Continued short term follow up. POS: MY
[2016-12-15] MEDS: Amiodarone HCl 450 MG, Admixture Fee 1 EACH in Dextrose 5% in Water 250 ML IVPB SCH ×6 (09:04→20:40)
--- NOTE | 2016-12-15 09:32 | PRG ---
DATE OF SERVICE: 12/15/2016 He is intubated and sedated. Worsening pulmonary status with severe mixed metabolic respiratory acidosis. PHYSICAL EXAMINATION: VITAL SIGNS: Blood pressure is 118/50, pulse 89%, sats are 90% on a PEEP of 14 , 50% FiO2. I's and O's are 5017 in, 1953 out. CHEST: Chest reveals bilateral crackles. CARDIAC: Normal S1, S2. ABDOMEN: Soft, no masses. LABORATORY DATA: White count 12,000, H\T\H 9 and 29, platelet count 64, worsening. His electrolytes show creatinine 1.84, BUN 72. X-ray shows diffuse pulmonary infiltrates. IMPRESSION: 1. Diffuse pulmonary infiltrates. 2. Adult respiratory distress syndrome. 3. Possibly metastatic disease. All cultures are negative. 4. Worsening renal failure. 5. Supraventricular tachycardia. 6. Thrombocytopenia. PLAN: His Eliquis was discontinued. two amps of bicarb, antibiotics, supportive care. Discussed with the patient's oncologist out of [place], Dr. Peterson, phone number [phone]. She also thinks this could be metastatic disease. She was not eager to have the patient transferred there considering his unstable status. I will discuss with the family, consider making him a DNR, comfort care. I will follow. One-half hour critical care time. [facility]OSPITALRenetta
--- NOTE | 2016-12-15 10:21 | CON ---
DATE OF SERVICE: 12/15/2016 Mr. Chapman's status is unchanged. He continues to be vent dependent. He is currently sedated. PHYSICAL EXAMINATION: VITAL SIGNS: Blood pressure 104/47, pulse 88, temperature afebrile. LUNGS: Mild rhonchi, rales bilaterally. CARDIAC: Regular rate and rhythm. ABDOMEN: Soft, nontender, nondistended. EXTREMITIES: No edema. LABS: Hemoglobin 9.0, creatinine 1.84, which is up from 1.3. IMPRESSION: 1. Atrial fibrillation. 2. Bronchopneumonia. 3. Stage IV metastatic lung cancer. RECOMMENDATIONS: 1. Continue vent support. Recommendations per Dr. Albert Conti. 2. Continue IV amiodarone for now and consider changing to p.o. once long-term prognosis has been e stablished 3. The patient's overall prognosis appears poor given the current circumstance and situation. 4. Continue IV antibiotics. 5. I did visit with his daughter. All questions answered.
[2016-12-15] MEDS: Cefepime 1 GM, Admixture Fee 1 EACH in Sterile Water 10 ML SLOW IVP SCH ×2 (11:55→23:54)
[2016-12-15] MEDS ORDERED: Cefepime 1 GM, Syringe 2.5 ML in Sterile Water 10 ML SLOW IVP SCH (12:00)
[2016-12-15] MEDS ORDERED: Cefepime 2 GM, Syringe 2.5 ML in Sterile Water 10 ML SLOW IVP SCH (12:00)
[2016-12-15 12:52] LABS: #Eosinphils 0.1 thou/uL (0.0-0.7); #Lymphocytes 0.7 thou/uL (1.20-3.40); #Monocytes 0.7 thou/uL (0.11-0.59); #Neutrophils 12.1 thou/uL (1.40-6.50); %Eosinophils 0.6 % (0.0-10.0); %Lymphocytes 5.3 % (21.0-51.0); %Monocytes 4.8 % (0.0-10.0); Hematocrit 29.8 % (42.0-52.0); Mean Platelet Volume 9.6 fL (7.4-10.4); Red Blood Cell (RBC) Count 2.56 mill/uL (4.70-6.10); White Blood Cell (WBC) Count 13.6 thou/uL (4.8-10.8)
[2016-12-15 12:57] LABS: Anion Gap 15 mmol/L (10-20); BUN (Urea Nitrogen) 80 mg/dL (8.4-25.7); Calc. Creatinine Clearance 46 mL/min (70-130); Carbon Dioxide 21 mmol/L (23-31); Chloride 110 mmol/L (98-107); Estimated GFR-MDRD 33
[2016-12-15 13:13] LABS: Hypochromia SLIGHT = 6-15 cells (100X) (0-5/hpf); Macrocytosis MODERATE=16-30 cells (100X) (0-5/hpf); Polychromasia MODERATE = 3-4 cells (100X) (0-2/hpf)
[2016-12-16] MEDS: Propofol 1,000 MG/100 ML VIAL IV PRN ×2 (03:29→22:18)
[2016-12-16] MEDS: Pantoprazole 40 MG VIAL IVP SCH ×2 (03:29→16:11)
[2016-12-16 04:41] LABS: Anion Gap 17 mmol/L (10-20); BUN (Urea Nitrogen) 92 mg/dL (8.4-25.7); Calc. Creatinine Clearance 42 mL/min (70-130); Calcium 7.9 mg/dL (7.8-10.44); Carbon Dioxide 17 mmol/L (23-31); Chloride 111 mmol/L (98-107); Estimated GFR-MDRD 30
[2016-12-16] MEDS: Metoclopramide HCl 10 MG/2 ML VIAL IVP SCH ×3 (05:53→21:28)
[2016-12-16] MEDS: Bisacodyl 10 MG SUPP PR SCH (05:53)
[2016-12-16 07:00] LABS: Anisocytosis SLIGHT = 6-15 cells (100X) (0-5/hpf); Band 2 % (5-11); Hematocrit 28.9 % (42.0-52.0); Mean Platelet Volume 10.3 fL (7.4-10.4); Neutrophil 86 % (42-75); Red Blood Cell (RBC) Count 2.53 mill/uL (4.70-6.10); White Blood Cell (WBC) Count 14.7 thou/uL (4.8-10.8)
[2016-12-16 07:05] LABS: Oxyhemoglobin 93.5 % (94.0-97.0); Sodium 141 mmol/L (135-148)
[2016-12-16 07:18] LABS: Mode BILEVEL; Modified Allen's Test POSITIVE; PIP 35 cmH2O; Peep/CPAP 14.5 cmH2O; Pressure Support 15 cmH2O; Vent YES
[2016-12-16] MEDS ORDERED: Senokot 8.6 MG TAB PO PRN (07:18)
[2016-12-16] MEDS ORDERED: Fleet Enema 133 ML BOT PR SCH (07:30)
--- NOTE | 2016-12-16 07:45 | PDOC.FM ---
- Subjective Subjective: AIMEE overnight, afebrile, still without bowel movement. Continues to stay in NSR. No family in room this AM. - Objective MAR Reviewed: Yes Vital Signs & Weight: Vital Signs (12 hours) Temp Pulse Resp BP Pulse Ox 12/16/16 06:42 80 101/46 L 12/16/16 06:41 75 24 H 99 12/16/16 06:00 24 H 12/16/16 04:00 97.8 F 24 H 12/16/16 02:00 24 H 12/16/16 01:59 79 12/16/16 01:57 79 24 H 100 12/16/16 00:35 80 12/16/16 00:00 97.7 F 24 H 12/15/16 22:00 24 H 12/15/16 21:39 82 12/15/16 21:37 78 24 H 100 12/15/16 20:00 97.7 F 82 24 H 100 Weight Admit Weight 91.626 kg Weight 101.5 kg Most Recent Monitor Data Heart Rate from ECG 75 NIBP 101/46 NIBP BP-Mean 65 Respiration from ECG 24 SpO2 100 I&O: 12/15/16 12/16/16 12/17/16 06:59 06:59 06:59 Intake Total 4 2609.6 Output Total 988 995 Balance 1036 1614.6 Result Diagrams: 12/16/16 06:01 12/16/16 04:09 <Chandrakant Askew K - Last Filed: 12/16/16 07:43> - Objective Vital Signs & Weight: Vital Signs (12 hours) Temp Pulse Resp BP Pulse Ox 12/16/16 06:42 80 101/46 L 12/16/16 06:41 75 24 H 99 12/16/16 06:00 24 H 12/16/16 04:00 97.8 F 24 H 12/16/16 02:00 24 H 12/16/16 01:59 79 12/16/16 01:57 79 24 H 100 12/16/16 00:35 80 12/16/16 00:00 97.7 F 24 H 12/15/16 22:00 24 H Weight Admit Weight 91.626 kg Weight 101.5 kg Most Recent Monitor Data Heart Rate from ECG 82 NIBP 134/58 NIBP BP-Mean 90 Respiration from ECG 10 SpO2 96 I&O: 12/15/16 12/16/16 12/17/16 06:59 06:59 06:59 Intake Total 2023 2609.6 77 Output Total 988 995 130 Balance 1036 1614.6 -53 Result Diagrams: 12/16/16 06:01 12/16/16 04:09 <ChrisLaure - Last Filed: 12/16/16 09:53> Phys Exam - Physical Examination intubated/sedated HEENT: PERRLA, moist MMs Neck: no nodes Respiratory: no wheezing, clear to auscultation bilateral Cardiovascular: RRR, no significant murmur improved distention. mildly hypoactive bowel sounds Musculoskeletal: pulses present sedated Deviation from normal: sedated <Chandrakant Askew - Last Filed: 12/16/16 07:43> Dx/Plan (1) Acute respiratory failure with hypoxia Code(s): J96.01 - ACUTE RESPIRATORY FAILURE WITH HYPOXIA Status: Acute Plan: Pt intially w/ intubation per cards and EP for cardioversion for a-flutter w/ RVR W/ underlying lung pathology, has been unable to wean s/p intubation Concern for alveolar involvement of lung malignancy primary causing this which pulm/crit care and [facility] Oncologist also believe is likely Continues to be on Bi-level 35/14.5 at 65% FiO2 w/ frequency of 24 to maintain O2 sats Will continue w/ IVF at 50 cc/hr and w/ tube feeds/flushes as pt has continued to be net positive fluid balance BAL cytology w/o malignant cells identified Specialist and primary team have discussed with family at length the poor prognosis of the patient will place palliative care consult today to aid in difficult decision making Will continue to treat presumed underlying CAP w/ IV levaquin and Cefepime Cont. w/ mechanical ventilation with GI and DVT ppx w/ SCD's 2/2 GI bleed and thrombocytopenia (2) Atrial flutter with rapid ventricular response Code(s): I48.92 - UNSPECIFIED ATRIAL FLUTTER Status: Acute Plan: S/p cardioversion per cards and EP Cont. w/ amiodarone gtt per cards recs will attempt to speak w/ crit care and cards today about possibility of transitioning over to Oral rate/rhythm control 2/2 possibility of amio causing thrombocytopenia cont. to hold eliquis 2/2 thrombocytopenia and bleed (3) Community acquired bacterial pneumonia Code(s): J15.9 - UNSPECIFIED BACTERIAL PNEUMONIA Status: Acute Plan: CTA showing possible atypical pneumonia Will continue to treat presumptive infection per Pulm/crit care, however spread of lung malignancy is more likely cause of sxs and difficulty weaning from vent Will kilgore-culture if pt becomes febrile Cultures NGTD (4) Primary cancer of right lung Code(s): C34.91 - MALIGNANT NEOPLASM OF UNSP PART OF RIGHT BRONCHUS OR LUNG Status: Acute Plan: Pending Oncology reccomendations See #1 (5) Primary colon cancer Code(s): C18.9 - MALIGNANT NEOPLASM OF COLON, UNSPECIFIED Status: Acute Plan: Pending oncology reccomendations Pt undergoing chemo and radiation outpatient for the past 3 weeks No BM, started on bowel regimen w/ dulcolax and reglan w/ improved residuals Will have low threshold in considering possible obstruction (6) Protein calorie malnutrition Code(s): E46 - UNSPECIFIED PROTEIN-CALORIE MALNUTRITION Status: Acute Plan: Cont. w/ tube feeds per nutrition Improved residuals s/p intiation of reglan (7) Iron deficiency anemia Code(s): D50.9 - IRON DEFICIENCY ANEMIA, UNSPECIFIED Status: Acute Qualifiers: Iron deficiency anemia type: chronic blood loss Qualified Code(s): D50.0 - Iron deficiency anemia secondary to blood loss (chronic) Plan: Likely 2/2 chronic blood loss from colon cancer Now macrocytic likely 2/2 reticulocytosis s/p 2U PRBC earlier in hospital stay Hgb stable this AM Will continue to monitor and transfuse if w/ acute blood loss or w/ Hgb <7 (8) Thrombocytopenia Code(s): D69.6 - THROMBOCYTOPENIA, UNSPECIFIED Status: Acute Plan: Unsure eitiology at this time, but amiodarone appears to be most likely source Continues to decline s/p discontinuation of eliquis work-up to this point leaning toward DITP Will repeat in Am and transfuse platelets if <20 will discuss possible d/c amio gtt w/ cardiology this AM (9) Constipation Code(s): K59.00 - CONSTIPATION, UNSPECIFIED Status: Acute Plan: Pt still w/o bowel movement after initiation of dulcolax, colace, and miralax Now w/ elevated potassium >6.0 will add 15 gm kayexalate and senna with fleets enema to aid in positive bowel function (10) Hyperkalemia Code(s): E87.5 - HYPERKALEMIA Status: Acute Plan: 6.2 from 5.6 this AM After discussion w/ crit care will give 15 gm of kayexalate and insulin + D50 2/ 2 K+ >6.0 which will hopefully aid in Bowel function (11) Acute renal failure Status: Acute Plan: worsening renal failure even with bicarb given yesterday UOP 0.4 mL/Kg/Hr will increase IVF to 100 cc/Hr of 1/2 NS Consult nephro for further reccomendations <Chandrakant Askew - Last Filed: 12/16/16 07:43> Attending Addendum - Attending Addendum I personally evaluated the patient and discussed the management with Dr. Askew on 12/16/16. I agree with the History, Examination, Assessment and Plan documented above with any addition or exceptions noted below. Patient's respiratory status mildly improved, pH improved with decrease in PEEP/ FiO2. Oxygens stable. However, renal function continues to worsen. Nephrology consulted, patient is a poor candidate for dialysis. No further GI bleed, will stop amiodarone after d/w cardiology as it is the likely cause of his thrombocytopenia. After long discussion with family, they agree to continue his current course but if no improvement will reassess on Wednesday and consider withdrawal of care. <Laure Perez - Last Filed: 12/16/16 09:53>
[2016-12-16] MEDS ORDERED: Dextrose 50% Abboject 50 ML SYRINGE SLOW IVP ONE (08:06)
[2016-12-16] MEDS ORDERED: Insulin Regular 300 UNITS/3 ML VIAL IVP SCH (08:15)
--- NOTE | 2016-12-16 08:50 | RAD ---
SINGLE VIEW CHEST: Date: 12/16/16 COMPARISON: 12/14/16. HISTORY: Intubated patient with respiratory failure. FINDINGS: Single view of the chest shows an enlarged cardiomediastinal silhouette. There are stable multifocal opacities in the lungs. Lines and tubes are unchanged in position. IMPRESSION: Stable exam. POS: [facility]
[2016-12-16] MEDS: Folic Acid 1 MG TAB PO SCH (09:40)
[2016-12-16] MEDS: Tamsulosin HCl 0.4 MG CAP PO SCH (09:40)
[2016-12-16] MEDS: Polyethylene Glycol 3350 17 GM Packet PO SCH (09:40)
[2016-12-16] MEDS: Docusate 100 MG CAP PO SCH ×2 (09:40→21:10)
[2016-12-16] MEDS ORDERED: Sodium Chloride 0.45% 1,000 ML IV SCH (09:45)
--- NOTE | 2016-12-16 10:29 | PRG ---
DATE OF SERVICE: 12/16/2016 HISTORY: This morning he is intubated on the vent with fentanyl and Diprivan on board. PHYSICAL EXAMINATION: VITAL SIGNS: His blood pressure is 130/80, pulse 82, O2 sats 95%, respirations 18. I's and O's are 2024 in, 98 out. NEUROLOGIC: He opens his eyes. CHEST: Chest revealed decreased breath sounds, no wheezing. CARDIAC: Normal S1-S2. No gallops. ABDOMEN: Soft. EXTREMITIES: No edema. LABORATORY: H\T\H is 9 and 28, platelet count 14,000. PO2 is 80, pCO2 60, pH 7.20 on a bilevel, potassium 6.1, BUN and creatinine are elevated at 92 and 2.1. IMPRESSION: 1. Respiratory failure. 2. Adult respiratory distress syndrome. 3. Atrial fibrillation, now in normal sinus rhythm. 4. Probably metastatic cancer. 5. Renal failure. 6. Thrombocytopenia. PLAN: Consider discontinuing amiodarone. Kayexalate has been given from the top. Additionally D50 and insulin was given to lower his potassium, IV fluids have been increased to 100 an hour. He is not weanable. Vent is being adjusted. Prognosis remains guarded. We will follow. One-half hour critical care time. [facility]
[2016-12-16] MEDS: Lacri-Lube Opth Oint 3.5 GM TUBE EA EYE PRN (11:40)
[2016-12-16] MEDS: Cefepime 1 GM, Admixture Fee 1 EACH in Sterile Water 10 ML SLOW IVP SCH (11:40)
[2016-12-16] MEDS: Sodium Bicarbonate 150 MEQ in Dextrose 5% in Water 1,000 ML IV SCH ×4 (13:24→23:27)
--- NOTE | 2016-12-16 13:26 | CON ---
DATE OF CONSULTATION: 12/16/2016 CONSULTING PHYSICIAN: Flaquito Aguilar M.D. REQUESTING PHYSICIAN: [facility]. REASON FOR CONSULTATION: Worsening renal failure, hyperkalemia, metabolic acidosis. IMPRESSION: 1. Acute kidney injury. This is likely hemodynamically mediated in the context of cardiac decompen sation as slight cardiac arrhythmia. 2. Worsening hyperkalemia in the context of decreased GFR/acute kidney injury, compounded by the ce llular shift of potassium due to metabolic acidosis. 3. Metabolic acidosis due to reduced renal clearance. PLAN: 1. Discontinue current IV fluid and change the IV fluid to a bicarb based infusion. 2. Renally dose all medications per low GFR and avoid potentially nephrotoxic agents. 3. We will repeat the renal function panel later this evening. I have discussed with the family. If the hyperkalemia persists, the only modality of treatment available to this patient will become r enal replacement therapy (hemodialysis). 4. I will be extremely cautious with the use of Kayexalate in this patient with GI pathology becaus e of the potential to cause bowel rupture. 5. If the patient's renal function continues to deteriorate and if ventilation becomes an issue, we will possibly initiate a discussion towards hemodialysis. I have already intimated the family on and they are in agreement with this plan. HISTORY OF PRESENT ILLNESS: History is that of a 76-year-old gentleman who presented here with redu nancy exercise tolerance, weakness with recent diagnosis of lung invasive adenocarcinoma on chemoradio therapy, who during this course of hospitalization has been noted to have atrial fibrillation with r apid ventricular response, necessitating some cardiac interventions and medications. The patient is now on ventilator and having some difficulty with processing electrolytes. Potassium has been risi ng and at this time I will decrease the potassium, it has risen to 6.2. The patient also noted to meghann e experiencing worsening metabolic acidosis and could not be weaned off vent. As a result of the co nstellation of these findings, the decision has been taken to involve Renal in the management of thi s case. PAST MEDICAL HISTORY: Significant for invasive adenocarcinoma, peripheral vascular disease, cardiac arrhythmia/atrial fibrillation. ALLERGIES: No known drug allergies. MEDICATIONS: Reviewed and as documented on [employer]. FAMILY HISTORY: No family history of kidney disease. SOCIAL HISTORY: According to the medical record a half pack per day for the past 40 years. No sign ificant alcohol use and no illicit drug use. REVIEW OF SYSTEMS: Could not be obtained given the fact that this patient is sedated and intubated. LABORATORY INVESTIGATION: Significant for potassium of 6.2, bicarbonate 17, creatinine 2.19 with BU N of 92. CBC showed a platelet of 37,000 with hemoglobin of 9. PHYSICAL EXAMINATION: GENERAL: The patient noted to be on life support. VITAL SIGNS: Blood pressure 131/56, pulse 97, O2 saturation 94%. HEENT: Remarkable for endotracheal tube in place. CARDIOVASCULAR SYSTEM: First and second heart sounds were heard. RESPIRATORY SYSTEM: Reveals vented sounds. DIGESTIVE SYSTEM: Revealed a benign abdomen. EXTREMITIES: Showed no significant peripheral edema. SUMMARY: A 76-year-old gentleman who is on life support experiencing worsening renal failure with w orsening hyperkalemia. Thank you for this consultation. We will follow with you.
[2016-12-16 14:21] LABS: Folate,Hemolysate 401.7 ng/mL (Not Estab.); Hematocrit 29.2 % (37.5-51.0); RBC Folate Test Component 1376 ng/mL (>498)
[2016-12-16 15:48] LABS: Anion Gap 19 mmol/L (10-20); BUN (Urea Nitrogen) 97 mg/dL (8.4-25.7); Calc. Creatinine Clearance 42 mL/min (70-130); Calcium 7.9 mg/dL (7.8-10.44); Carbon Dioxide 18 mmol/L (23-31); Chloride 112 mmol/L (98-107); Estimated GFR-MDRD 29
[2016-12-16 18:44] LABS: Anion Gap 12 mmol/L (10-20); BUN (Urea Nitrogen) 100 mg/dL (8.4-25.7); BUN/Creatinine Ratio 45.66; Calc. Creatinine Clearance 42 mL/min (70-130); Carbon Dioxide 24 mmol/L (23-31); Chloride 111 mmol/L (98-107); Estimated GFR-MDRD 30; Phosphorus 4.2 mg/dL (2.3-4.7)
[2016-12-16] MEDS: Fentanyl 20 MCG/ML 250 ML IVPB SCH (23:02)
[2016-12-17] MEDS: Cefepime 1 GM, Admixture Fee 1 EACH in Sterile Water 10 ML SLOW IVP SCH (00:01)
[2016-12-17 05:28] LABS: Anion Gap 12 mmol/L (10-20); BUN (Urea Nitrogen) 99 mg/dL (8.4-25.7); Calc. Creatinine Clearance 48 mL/min (70-130); Calcium 8.1 mg/dL (7.8-10.44); Carbon Dioxide 27 mmol/L (23-31); Chloride 110 mmol/L (98-107); Estimated GFR-MDRD 34
[2016-12-17] MEDS: Pantoprazole 40 MG VIAL IVP SCH ×2 (05:30→17:37)
[2016-12-17 05:42] LABS: Anisocytosis SLIGHT = 6-15 cells (100X) (0-5/hpf); Hematocrit 25.5 % (42.0-52.0); Macrocytosis SLIGHT = 6-15 cells (100X) (0-5/hpf); Neutrophil 93 % (42-75); Nucleated RBC 1 % (0); Red Blood Cell (RBC) Count 2.27 mill/uL (4.70-6.10); White Blood Cell (WBC) Count 14.4 thou/uL (4.8-10.8)
[2016-12-17] MEDS: Metoclopramide HCl 10 MG/2 ML VIAL IVP SCH ×3 (05:52→21:37)
[2016-12-17] MEDS: Bisacodyl 10 MG SUPP PR SCH (06:06)
[2016-12-17 06:56] LABS: Oxyhemoglobin 89.1 % (94.0-97.0); Sodium 147 mmol/L (135-148)
[2016-12-17 06:59] LABS: Modified Allen's Test POSITIVE; Pressure Support 15 cmH2O; Vent YES
[2016-12-17 07:00] LABS: Mode BILEVEL 33/12
--- NOTE | 2016-12-17 07:34 | PDOC.FM ---
- Subjective Subjective: AIMEE overnight, VSS, pt intubated and sedated this AM. Remained in NSR off amio gtt overnight. Seen by palliative team yesterday w/o family in room. They are to come back by to speak with family today. Small BM this AM. - Objective MAR Reviewed: Yes Vital Signs & Weight: Vital Signs (12 hours) Temp Pulse Resp BP Pulse Ox 12/17/16 06:29 125 H 130/54 L 12/17/16 06:28 123 H 25 H 95 12/17/16 06:00 28 H 12/17/16 04:00 98.7 F 28 H 12/17/16 02:40 112 H 12/17/16 02:38 110 H 27 H 96 12/17/16 02:00 28 H 12/17/16 00:07 119 H 12/17/16 00:00 98.5 F 28 H 12/16/16 22:30 109 H 12/16/16 22:28 108 H 33 H 95 12/16/16 22:00 24 H 12/16/16 20:00 98.9 F 90 20 95 Weight Admit Weight 91.626 kg Weight 103.3 kg Most Recent Monitor Data Heart Rate from ECG 105 NIBP 130/54 NIBP BP-Mean 86 Respiration from ECG 16 SpO2 97 I&O: 12/16/16 12/17/16 12/18/16 06:59 06:59 06:59 Intake Total 2609.6 3114.7 Output Total 995 2922 Balance 1614.6 192.7 Result Diagrams: 12/17/16 03:28 12/17/16 03:28 <Chandrakant Askew K - Last Filed: 12/17/16 07:33> - Objective Vital Signs & Weight: Vital Signs (12 hours) Temp Pulse Resp BP Pulse Ox 12/17/16 14:57 108 H 123/65 12/17/16 14:55 124 H 27 H 100 12/17/16 10:57 110 H 140/74 12/17/16 10:54 118 H 25 H 93 L 12/17/16 08:00 99.2 F 110 H 24 H 93 L 12/17/16 06:29 125 H 130/54 L 12/17/16 06:28 123 H 25 H 95 12/17/16 06:00 28 H Weight Admit Weight 91.626 kg Weight 103.3 kg Most Recent Monitor Data Heart Rate from ECG 125 NIBP 152/75 NIBP BP-Mean 99 Respiration from ECG 18 SpO2 93 I&O: 12/16/16 12/17/16 12/18/16 06:59 06:59 06:59 Intake Total 2609.6 3114.7 Output Total 995 2922 230 Balance 1614.6 192.7 -230 Result Diagrams: 12/17/16 03:28 12/17/16 03:28 <Laure Perez - Last Filed: 12/17/16 16:40> Phys Exam - Physical Examination intubated/sedated HEENT: PERRLA, moist MMs Respiratory: clear to auscultation bilateral mildly tachycardic, regular rhythm slightly distended, improved from prior days Musculoskeletal: pulses present sedated <Chandrakant Askew - Last Filed: 12/17/16 07:33> Dx/Plan (1) Acute respiratory failure with hypoxia Code(s): J96.01 - ACUTE RESPIRATORY FAILURE WITH HYPOXIA Status: Acute Plan: Pt intially w/ intubation per cards and EP for cardioversion for a-flutter w/ RVR W/ underlying lung pathology, has been unable to wean s/p intubation Concern for alveolar involvement of lung malignancy primary causing this which pulm/crit care and [place] Oncologist also believe is likely BAL cytology w/o malignant cells identified Specialist and primary team have discussed with family at length the poor prognosis of the patient will place palliative care consult today to aid in difficult decision making Will continue to treat presumed underlying CAP w/ IV levaquin and Cefepime Cont. w/ mechanical ventilation with GI and DVT ppx w/ SCD's 2/2 GI bleed and thrombocytopenia Continues to be on Bi-level but with slightly lower setting this AM 32/12 at 45 % FiO2 w/ frequency of 24 to maintain O2 sats. PaO2 on ABG this AM 59.5, Will speak with pulm about increasing FiO2 from 45 to 50 or 55% to improve this as his acidosis has improved significantly s/p initiation of bicarb gtt Cont. to wean vent as tolerated (2) Atrial flutter with rapid ventricular response Code(s): I48.92 - UNSPECIFIED ATRIAL FLUTTER Status: Acute Plan: S/p cardioversion per cards and EP Amio gtt d/c'ed yesterday 2/2 concerns for drug induced thrombocytopenia which has remained stable s/p discontinuation of drip cont. to hold eliquis 2/2 thrombocytopenia and bleed (3) Community acquired bacterial pneumonia Code(s): J15.9 - UNSPECIFIED BACTERIAL PNEUMONIA Status: Acute Plan: CTA showing possible atypical pneumonia Will continue to treat presumptive infection per Pulm/crit care, however spread of lung malignancy is more likely cause of sxs and difficulty weaning from vent Will kilgore-culture if pt becomes febrile Cultures NGTD (4) Primary cancer of right lung Code(s): C34.91 - MALIGNANT NEOPLASM OF UNSP PART OF RIGHT BRONCHUS OR LUNG Status: Acute Plan: Pending Oncology reccomendations See #1 (5) Primary colon cancer Code(s): C18.9 - MALIGNANT NEOPLASM OF COLON, UNSPECIFIED Status: Acute Plan: Pending oncology reccomendations Pt undergoing chemo and radiation outpatient for the past 3 weeks No BM, started on bowel regimen w/ dulcolax and reglan w/ improved residuals Will have low threshold in considering possible obstruction (6) Protein calorie malnutrition Code(s): E46 - UNSPECIFIED PROTEIN-CALORIE MALNUTRITION Status: Acute Plan: Cont. w/ tube feeds per nutrition Improved residuals s/p intiation of reglan Residuals <200 (7) Iron deficiency anemia Code(s): D50.9 - IRON DEFICIENCY ANEMIA, UNSPECIFIED Status: Acute Qualifiers: Iron deficiency anemia type: chronic blood loss Qualified Code(s): D50.0 - Iron deficiency anemia secondary to blood loss (chronic) Plan: Likely 2/2 chronic blood loss from colon cancer Now macrocytic likely 2/2 reticulocytosis s/p 2U PRBC earlier in hospital stay Hgb stable this AM Will continue to monitor and transfuse if w/ acute blood loss or w/ Hgb <7 or platelets <20 (8) Thrombocytopenia Code(s): D69.6 - THROMBOCYTOPENIA, UNSPECIFIED Status: Acute Plan: Delta gap decreased in platelet change since stopping amio gtt Likely drug induced Will continue to monitor No active bleeding at this time Transfuse if <20 (9) Constipation Code(s): K59.00 - CONSTIPATION, UNSPECIFIED Status: Acute Plan: Small BM this AM, will continue w/ bowel regimen (10) Hyperkalemia Code(s): E87.5 - HYPERKALEMIA Status: Acute Plan: Down to 5.1 from 6.2 yesterday s/p initiation of bicarb gtt per nephro w/ improvement in acidosis as well This will likely continue to down trend w/ improvement in renal function and positive bowel function no changes in EKG noted per review of tele leads Will continue to monitor (11) Acute renal failure Status: Acute Plan: Improved renal function s/p initiation of bicarb gtt per nephro Improved acidosis w/ PH 7.43 from 7.2 yesterday Hyperkalemia improving as well Adequate UOP 1.18 mL/Kg/Hr overnight <Chandrakant Askew - Last Filed: 12/17/16 07:33> Attending Addendum - Attending Addendum I personally evaluated the patient and discussed the management with Dr. Askew on 12/17/16. I agree with the History, Examination, Assessment and Plan documented above with any addition or exceptions noted below. Patient's respiratory and renal status improving on bicarb drip. Urine output improved. Had small bowel movement yesterday. Platelets have stopped dropping as much, will continue to hold Eliquis and Amiodarone. Remains in NSR. Weaning sedation some today. <Laure Perez - Last Filed: 12/17/16 16:40>
--- NOTE | 2016-12-17 07:59 | RAD ---
SINGLE VIEW OF CHEST: Date: 12/17/16 COMPARISON: 12/16/16. HISTORY: Intubated patient with respiratory failure. FINDINGS: Single view of the chest shows an enlarged but stable cardiomediastinal silhouette. The lines and tu bes are unchanged in position. Diffuse increased interstitial lung markings are present. These appea r to be superimposed with overlying air space opacities. No change has occurred compared to the prio r exam. IMPRESSION: Stable exam. POS: [facility]
[2016-12-17] MEDS ORDERED: Sodium Chloride 0.45% 1,000 ML IV SCH (08:15)
[2016-12-17] MEDS: Lacri-Lube Opth Oint 3.5 GM TUBE EA EYE PRN (08:51)
[2016-12-17] MEDS: Docusate 100 MG CAP PO SCH ×2 (08:52→21:37)
[2016-12-17] MEDS: Polyethylene Glycol 3350 17 GM Packet PO SCH (08:52)
[2016-12-17] MEDS: Folic Acid 1 MG TAB PO SCH (08:53)
[2016-12-17] MEDS: Tamsulosin HCl 0.4 MG CAP PO SCH (08:53)
[2016-12-17] MEDS: MEROPENEM 1 GM/50 ML 1 GM in Premix Bag 1 BAG IVPB SCH ×2 (09:13→21:29)
--- NOTE | 2016-12-17 12:43 | PRG ---
DATE OF SERVICE: 12/17/2016 SUBJECTIVE: He seemed to be in the office followup visit. He is doing well. He is doing about the same. X-ray looks bilateral infiltrates, slightly more improved on the left side. PHYSICAL EXAMINATION: VITAL SIGNS: His I's and O's in the last 24 hours are 2619 in and 995 out. Temperature is 99, bloo d pressure 130/54, pulse 125. CHEST: Decreased breath sounds, minimal crackles. CARDIAC: Sinus tachycardia. ABDOMEN: No masses. LABORATORY DATA: White count 14,000, hemoglobin and hematocrit is 8 and 25, platelet count is 34, l ow. PO2 was 59, pCO2 of 43, pH 7.43, bilevel low PEEP of 12, creatinine 1.2, BUN 92. IMPRESSION: 1. Gastrointestinal bleed, stable. 2. Respiratory failure, acute respiratory distress syndrome, minimal improvement. 3. Metastatic cancer. 4. Renal failure, mostly it is prerenal. PLAN: 1. Antibiotics can be adjusted. Discontinue Levaquin, Maxipime and start him on meropenem. Contin ue his oral steroids. Continue nebulizer treatments, discontinue bicarbonate. Continue slow hydrat ion. 2. Free water. 3. PT. One-half hour critical care time.
[2016-12-17] MEDS ORDERED: Meropenem 1 GM in Sodium Chloride 0.9% 100 ML IVPB SCH (14:00)
--- NOTE | 2016-12-17 17:33 | PRG ---
DATE OF SERVICE: 12/17/2016 SUBJECTIVE: The patient was seen and examined today, still remains on life support. PHYSICAL EXAMINATION: VITAL SIGNS: Noted with the following vital signs. Pulse of 108, blood pressure 123/65. HEENT: Unremarkable for endotracheal tube in place. CARDIOVASCULAR: First and second heart sounds, tachycardic. RESPIRATORY: Reveals vented sounds. DIGESTIVE: Reveals obese abdomen. EXTREMITIES: Show no significant peripheral edema. NEUROLOGIC: The patient is sedated and intubated. LABORATORY INVESTIGATIONS: Show potassium of 5.1, bicarbonate of 27, BUN of 99 with a creatinine 1. 92. CBC showed a white count of 14,400, hemoglobin 8.2, platelets of 34,000. IMPRESSION: 1. Hemodynamically mediated acute tubular necrosis which seems to be showing some improvement. 2. Metabolic acidosis, resolved. 3. Hyperkalemia, resolved with correction of metabolic acidosis and improvement in GFR. 4. Cardiopulmonary failure. PLAN: 1. Deescalate IV fluid infusion; in fact within the next 24 hours, we will begin to plan towards di uresis to see if this can improve the oxygen requirement of this patient and ventilatory effort. 2. Continue renal supportive measures. 3. Further management will be dependent on the clinical course and no indication at this point for dialytic intervention.
[2016-12-17] MEDS: Propofol 1,000 MG/100 ML VIAL IV PRN (18:37)
[2016-12-17] MEDS: Sodium Chloride 0.45% 1,000 ML IV SCH (18:38)
[2016-12-18] MEDS: Pantoprazole 40 MG VIAL IVP SCH ×2 (04:22→16:26)
[2016-12-18] MEDS: Bisacodyl 10 MG SUPP PR SCH (04:24)
[2016-12-18] MEDS: Metoclopramide HCl 10 MG/2 ML VIAL IVP SCH ×3 (04:31→21:11)
[2016-12-18] MEDS: Sodium Chloride 0.45% 1,000 ML IV SCH (04:45)
[2016-12-18 04:54] LABS: Anion Gap 14 mmol/L (10-20); BUN (Urea Nitrogen) 88 mg/dL (8.4-25.7); Calc. Creatinine Clearance 62 mL/min (70-130); Calcium 8.3 mg/dL (7.8-10.44); Carbon Dioxide 29 mmol/L (23-31); Chloride 113 mmol/L (98-107); Estimated GFR-MDRD 48
[2016-12-18 05:16] LABS: Anisocytosis SLIGHT = 6-15 cells (100X) (0-5/hpf); Band 2 % (5-11); Hematocrit 27.6 % (42.0-52.0); Macrocytosis SLIGHT = 6-15 cells (100X) (0-5/hpf); Mean Platelet Volume 10.8 fL (7.4-10.4); Neutrophil 90 % (42-75); Red Blood Cell (RBC) Count 2.44 mill/uL (4.70-6.10); White Blood Cell (WBC) Count 16.2 thou/uL (4.8-10.8)
[2016-12-18] MEDS: Propofol 1,000 MG/100 ML VIAL IV PRN (05:39)
--- NOTE | 2016-12-18 07:45 | PDOC.FM ---
- Subjective Subjective: AIMEE overnight, VSS, afebrile. Large BM's w/ significant diuresis. - Objective MAR Reviewed: Yes Vital Signs & Weight: Vital Signs (12 hours) Temp Pulse Resp BP Pulse Ox 12/18/16 07:00 100.1 F H 12/18/16 06:59 120 H 139/66 12/18/16 05:47 23 H 12/18/16 04:00 99.2 F 23 H 12/18/16 02:02 112 H 27 H 98 12/18/16 02:00 23 H 12/18/16 01:59 112 H 12/18/16 00:40 113 H 12/18/16 00:00 99.5 F 12/17/16 23:45 20 12/17/16 22:04 91 12/17/16 22:02 103 H 22 H 98 12/17/16 22:00 23 H 12/17/16 20:00 98.7 F 111 H 27 H 94 L Weight Admit Weight 91.626 kg Weight 98.2 kg Most Recent Monitor Data Heart Rate from ECG 133 NIBP 139/66 NIBP BP-Mean 85 Respiration from ECG 16 SpO2 96 I&O: 12/17/16 12/18/16 12/19/16 06:59 06:59 06:59 Intake Total 3114.7 1923.0 Output Total 2922 3270 250 Balance 192.7 -1347.0 -250 Result Diagrams: 12/18/16 04:24 12/18/16 04:24 <Chandrakant Askew - Last Filed: 12/18/16 07:42> - Objective Vital Signs & Weight: Vital Signs (12 hours) Temp Pulse Resp BP Pulse Ox 12/18/16 08:31 120 H 12/18/16 08:00 20 12/18/16 07:00 100.1 F H 12/18/16 06:59 120 H 139/66 12/18/16 05:47 23 H 12/18/16 04:00 99.2 F 23 H 12/18/16 02:02 112 H 27 H 98 12/18/16 02:00 23 H 12/18/16 01:59 112 H 12/18/16 00:40 113 H 12/18/16 00:00 99.5 F 12/17/16 23:45 20 Weight Admit Weight 91.626 kg Weight 98.2 kg Most Recent Monitor Data Heart Rate from ECG 122 NIBP 124/68 NIBP BP-Mean 102 Respiration from ECG 25 SpO2 96 I&O: 12/17/16 12/18/16 12/19/16 06:59 06:59 06:59 Intake Total 3114.7 1923.0 368 Output Total 2922 3270 775 Balance 192.7 -1347.0 -407 Result Diagrams: 12/18/16 04:24 12/18/16 04:24 <Laure Perez - Last Filed: 12/18/16 10:17> Phys Exam - Physical Examination Constitutional: NAD intubated/sedated HEENT: PERRLA Respiratory: clear to auscultation bilateral tachycardic Gastrointestinal: soft Musculoskeletal: pulses present sedated Deviation from normal: sedated <Chandrakant Askew - Last Filed: 12/18/16 07:42> Dx/Plan (1) Acute respiratory failure with hypoxia Code(s): J96.01 - ACUTE RESPIRATORY FAILURE WITH HYPOXIA Status: Acute Plan: Pt intially w/ intubation per cards and EP for cardioversion for a-flutter w/ RVR W/ underlying lung pathology, has been unable to wean s/p intubation Concern for alveolar involvement of lung malignancy primary causing this which pulm/crit care and [facility] Oncologist also believe is likely BAL cytology w/o malignant cells identified Specialist and primary team have discussed with family at length the poor prognosis of the patient Seen by palliative yesterday who contacted me and stated family not ready to make decision tomorrow. Since patient improving slowly discussed yesterday w/ specialists to watch over the weekend Will continue to treat presumed underlying CAP w/ IV meropenem per crit care reccomendations Cont. w/ mechanical ventilation with GI and DVT ppx w/ SCD's 2/2 GI bleed and thrombocytopenia Continues to be on Bi-level. Unable to obtain ABG this AM 2/2 thrombocytopenia Cont. to wean vent as tolerated (2) Atrial flutter with rapid ventricular response Code(s): I48.92 - UNSPECIFIED ATRIAL FLUTTER Status: Acute Plan: S/p cardioversion per cards and EP Amio gtt d/c'ed, pt tachycardic and appears to be in a-fib on lead Will obtain EKG to confirm 0.5 digoxin ordered per crit care recs Awaiting cards recs cont. to hold eliquis 2/2 thrombocytopenia and bleed (3) Community acquired bacterial pneumonia Code(s): J15.9 - UNSPECIFIED BACTERIAL PNEUMONIA Status: Acute Plan: CTA showing possible atypical pneumonia Will continue to treat presumptive infection per Pulm/crit care, however spread of lung malignancy is more likely cause of sxs and difficulty weaning from vent Will kilgore-culture if pt becomes febrile Cultures NGTD (4) Primary cancer of right lung Code(s): C34.91 - MALIGNANT NEOPLASM OF UNSP PART OF RIGHT BRONCHUS OR LUNG Status: Acute Plan: Pending Oncology reccomendations See #1 (5) Primary colon cancer Code(s): C18.9 - MALIGNANT NEOPLASM OF COLON, UNSPECIFIED Status: Acute Plan: Pending oncology reccomendations Pt undergoing chemo and radiation outpatient for the past 3 weeks No BM, started on bowel regimen w/ dulcolax and reglan w/ improved residuals Will have low threshold in considering possible obstruction (6) Protein calorie malnutrition Code(s): E46 - UNSPECIFIED PROTEIN-CALORIE MALNUTRITION Status: Acute Plan: Cont. w/ tube feeds per nutrition Improved residuals s/p intiation of reglan Residuals <200 (7) Iron deficiency anemia Code(s): D50.9 - IRON DEFICIENCY ANEMIA, UNSPECIFIED Status: Acute Qualifiers: Iron deficiency anemia type: chronic blood loss Qualified Code(s): D50.0 - Iron deficiency anemia secondary to blood loss (chronic) Plan: Likely 2/2 chronic blood loss from colon cancer Now macrocytic likely 2/2 reticulocytosis s/p 2U PRBC earlier in hospital stay Hgb stable this AM Will continue to monitor and transfuse if w/ acute blood loss or w/ Hgb <7 or platelets <20 (8) Thrombocytopenia Code(s): D69.6 - THROMBOCYTOPENIA, UNSPECIFIED Status: Acute Plan: Delta gap decreased in platelet change since stopping amio gtt Likely drug induced Will continue to monitor No active bleeding at this time Transfuse if <20 (9) Constipation Code(s): K59.00 - CONSTIPATION, UNSPECIFIED Status: Acute Plan: Small BM this AM, will continue w/ bowel regimen (10) Hyperkalemia Code(s): E87.5 - HYPERKALEMIA Status: Acute Plan: Down to 5.1 from 6.2 yesterday s/p initiation of bicarb gtt per nephro w/ improvement in acidosis as well This will likely continue to down trend w/ improvement in renal function and positive bowel function no changes in EKG noted per review of tele leads Will continue to monitor (11) Acute renal failure Status: Acute Qualifiers: Acute renal failure type: with acute tubular necrosis Qualified Code(s): N17.0 - Acute kidney failure with tubular necrosis Plan: Improved renal function w/ significant diuresis yesterday Hyperkalemia resolved Adequate UOP 1.4 mL/Kg/Hr overnight Nephro on board, appreciate recs (12) Hypernatremia Code(s): E87.0 - HYPEROSMOLALITY AND HYPERNATREMIA Status: Acute Plan: Free water deficit of 3.9L this AM Currently getting Free water flushes 100 cc q6 hrs Will increase to an additional 80 cc q1 hr to begin correcting this <Chandrakant Askew - Last Filed: 12/18/16 07:42> Attending Addendum - Attending Addendum I personally evaluated the patient and discussed the management with Dr. Askew on 12/18/16. I agree with the History, Examination, Assessment and Plan documented above with any addition or exceptions noted below. Renal function continues to improve, will adjust medications accordingly. Has resumed bowel function, continue enteral feeds. Respiratory status improving on the vent. However, platelets continue to decrease. Does not appear to be in DIC, but has had bleeding from his IV and lab draw sites. Will transfuse platelets. If develops other bleeding sites will consider FFP. Likely still clearing the amiodarone. Today he resumed atrial fibrillation. 12 lead EKG reviewed. Will rate control with digoxin. Patient's family would like to defer decision on continuing support until Wednesday, given his improving but still tenuous status. <Laure Perez - Last Filed: 12/18/16 10:17>
[2016-12-18] MEDS ORDERED: D5 1/4 NS 1,000 ML IV SCH ×2 (08:00→15:41)
[2016-12-18] MEDS ORDERED: D5 1/2 NS 500 ML IV SCH (08:00)
--- NOTE | 2016-12-18 08:14 | RAD ---
AP VIEW OF CHEST: Date: 12/18/16 INDICATION: History of intubation. FINDINGS: The ET tube, gastric catheter, and right chest wall port are unchanged. Cardiomegaly, pulmonary vasc ular congestion, and bilateral interstitial and air space opacities are similar. No pneumothorax is evident. IMPRESSION: Stable exam. POS: [facility]
[2016-12-18] MEDS: MEROPENEM 1 GM/50 ML 1 GM in Premix Bag 1 BAG IVPB SCH ×2 (08:16→21:10)
[2016-12-18] MEDS: Docusate 100 MG CAP PO SCH ×2 (08:17→21:08)
[2016-12-18] MEDS: Folic Acid 1 MG TAB PO SCH (08:31)
[2016-12-18] MEDS: Tamsulosin HCl 0.4 MG CAP PO SCH (08:31)
[2016-12-18] MEDS: Polyethylene Glycol 3350 17 GM Packet PO SCH (08:32)
--- NOTE | 2016-12-18 08:46 | PRG ---
DATE OF SERVICE: 12/18/2016 He remains intubated on the vent, sedated with fentanyl. Last night he went back into atrial fibril lation with maximum sustained rate of 150. He remained thrombocytopenic at 25. His I's and O's have been 3147 in, 2922 out, slightly ahead. PHYSICAL EXAMINATION: VITAL SIGNS: Blood pressure 136/66, pulse 120 regular, temperature 99. CHEST: Chest reveals bilateral rhonchi and crackles. CARDIAC: Atrial fibrillation. ABDOMEN: Soft. LABORATORY DATA: Sodium 151, chloride 133. White count 16,000, H\T\H 8 and 27, platelet count 25. to 1.4. IMPRESSION: 1. Respiratory failure. 2. Adult respiratory distress syndrome. 3. Thrombocytopenia. 4. Sepsis versus drug induced. 5. Renal failure. 6. Electrolyte imbalance. PLAN: He is clearly not weanable. A week on the vent. Family will decide ongoing issues regarding extubation versus comfort care, etc. Order blood gases. Continue supportive care. Continue nutrition. Prognosis poor. Discuss with family as they arrive. One-half hour critical care time.
[2016-12-18] MEDS ORDERED: Digoxin 0.25 MG TAB PO SCH (09:00)
[2016-12-18] MEDS ORDERED: [UNRECOGNIZED DRUG - REMARK] IVPB SCH (11:00)
[2016-12-18] MEDS: Fentanyl 20 MCG/ML 250 ML IVPB SCH (11:38)
--- NOTE | 2016-12-18 11:46 | PDOC.EVN ---
Event Note - Event Note Event Note: Called to bedside by nurse upon request of family. Family with questions about prison course and if there would likely be any significant changes in his respiratory status by Wednesday if the decision to move forward with comfort care was delayed until then. Advised that there is no way to know if his pulmonary function would continue to improve or not as he has remained mostly stable w/o significant improvement over the past week. Discussed that patient is still requiring a large amount of PEEP to maintain oxygenation and in the event that he did improve would likely require trach placement and subsequent LTAC vs SNF placement for continued respiratory/occupational/and physical therapy. Patient at this time has been intubated for one week and his prognosis remains very poor and guarded. Discussed that this would not resolve his underlying malignancies which are felt to be the likely cause of his current status. Patient was previously only undergoing treatment for his cancer which would not decrease his quality of life and he was previously a DNI prior to changing this before cardioversion. After discussion with family, they agreed that patient would not want this as it would decrease his quality of life and he would still have to fight his underlying cancer in the event he was able to be extubated. After discussion I offered family to speak with palliative care again before making any final decisions which they agreed to. Discussed this with nurse who contacted palliative care to come speak with family. Discussed with Dr. Perez
--- NOTE | 2016-12-18 14:24 | PRG ---
DATE OF SERVICE: 12/18/2016 SUBJECTIVE: Mr. Chapman's status is unchanged. He continues to be vent supported. He did go back in atrial fibrillation with normal rate response. His amiodarone IV was stopped. There has been no s ignificant change in the platelet count. PHYSICAL EXAMINATION: VITAL SIGNS: Blood pressure 107/52, pulse 83, respirations 20. GENERAL: The patient is intubated. LUNGS: Rales and rhonchi bilaterally. CARDIAC: Irregular, irregular. ABDOMEN: Soft, nontender, nondistended. EXTREMITIES: A 1+ pitting edema. PERTINENT LABORATORY DATA: Hemoglobin 8.6, platelet count of 25, which is down from 34. Creatinine of 1.45. IMPRESSION: 1. Atrial fibrillation. 2. Bronchopneumonia versus metastatic lung cancer. 3. Respiratory failure. RECOMMENDATIONS: At this point, continues to be rate controlled, we would continue current therapy. We would add IV Cardizem if needed for rate control. There was concern on amiodarone being part o f the cause for his thrombocytopenia, but is a rare complication. Otherwise, I have no further bertha mmendations.
[2016-12-18] MEDS ORDERED: Furosemide 40 MG/4 ML VIAL SLOW IVP SCH (15:45)
[2016-12-18] MEDS: Micafungin 100 MG in Sodium Chloride 0.9% 100 ML IVPB SCH (16:28)
[2016-12-18 16:52] LABS: Oxyhemoglobin 79.2 % (94.0-97.0); Sodium 150 mmol/L (135-148)
[2016-12-18 16:55] LABS: Modified Allen's Test POSITIVE; Vent YES
[2016-12-18 16:56] LABS: Mode PC 13; Pressure Support 15 cmH2O
[2016-12-18 19:04] LABS: Hematocrit 29.2 % (42.0-52.0)
--- NOTE | 2016-12-19 00:51 | PRG ---
DATE OF SERVICE: 12/18/2016 SUBJECTIVE: The patient was seen and examined, still on life support and noted with the following v ital signs. OBJECTIVE: VITAL SIGNS: Blood pressure 154/83, heart rate of 118, respiratory rate of 23, O2 sat 98% on ventil ator. HEENT EXAMINATION: Unremarkable, endotracheal tube in place. CARDIOVASCULAR SYSTEM: First and second heart sounds are heard. RESPIRATORY SYSTEM: Reveals vented sounds. DIGESTIVE SYSTEM: Revealed a benign abdomen with positive bowel sounds. EXTREMITIES: No significant peripheral edema. NEUROLOGIC: The patient is sedated, no lateralizing signs. LABORATORY INVESTIGATION: Significant for platelet of 25,000, hemoglobin 8.6, white count 16,200. Chemistry showed sodium of 151, BUN of 88 with a creatinine of 1.45. IMPRESSION: 1. Acute tubular necrosis which seems to be recovering and now at this stage of post-ATN diuretic p hase. 2. Hypernatremia in the context of free water deficit. 3. Severe thrombocytopenia. 4. Hypervolemia responding to post-ATN diuresis. PLAN: 1. Free water repletion to address for the significant free water deficit in this patient. 2. Diuretics to be initiated in addition to the post-ATN diuresis, this is all resolved to see how much dependent this patient would be on the life support. 3. Continue renal supportive measures. 4. Further management will be dependent on the clinical course.
[2016-12-19] MEDS: Pantoprazole 40 MG VIAL IVP SCH ×2 (03:41→14:57)
[2016-12-19 05:01] LABS: Anion Gap 14 mmol/L (10-20); BUN (Urea Nitrogen) 78 mg/dL (8.4-25.7); Calc. Creatinine Clearance 76 mL/min (70-130); Calcium 8.5 mg/dL (7.8-10.44); Carbon Dioxide 34 mmol/L (23-31); Chloride 108 mmol/L (98-107); Estimated GFR-MDRD 60
[2016-12-19 05:28] LABS: Band 1 % (5-11); Mean Platelet Volume 9.9 fL (7.4-10.4); Neutrophil 97 % (42-75); Red Blood Cell (RBC) Count 2.53 mill/uL (4.70-6.10); White Blood Cell (WBC) Count 26.9 thou/uL (4.8-10.8)
[2016-12-19] MEDS ORDERED: Furosemide 40 MG/4 ML VIAL SLOW IVP SCH (06:00)
[2016-12-19] MEDS: Furosemide 40 MG/4 ML VIAL SLOW IVP SCH ×2 (06:01→13:06)
[2016-12-19] MEDS: Metoclopramide HCl 10 MG/2 ML VIAL IVP SCH ×4 (06:01→21:53)
[2016-12-19] MEDS: Bisacodyl 10 MG SUPP PR SCH (06:02)
[2016-12-19] MEDS: Dextrose 5% in Water 1,000 ML IV SCH ×2 (06:50→21:55)
--- NOTE | 2016-12-19 07:45 | PDOC.FM ---
- Subjective Subjective: Transitioned to DNR after speaking w/ palliative care yesterday. Febrile overnight. Pt w/ significant diuresis and on less pressure support on mechanical ventilation this AM. Family spoken to by Dr. Velasquez yesterday who explained poor prognosis. Febrile to 100.9. Otherwise VSS. On minimal sedation this AM. - Objective Vital Signs & Weight: Vital Signs (12 hours) Temp Pulse Resp BP Pulse Ox 12/19/16 06:48 107 H 110/55 L 12/19/16 06:45 114 H 15 99 12/19/16 06:00 12 12/19/16 04:00 100.9 F H 16 12/19/16 03:12 113 H 12/19/16 03:10 108 H 18 97 12/19/16 02:00 12 12/19/16 00:26 99 12/19/16 00:00 100.7 F H 12 12/18/16 22:26 112 H 12/18/16 22:25 113 H 15 95 12/18/16 22:00 15 12/18/16 20:00 99.5 F 112 H 16 99 Weight Admit Weight 91.626 kg Weight 97.1 kg Most Recent Monitor Data Heart Rate from ECG 110 NIBP 110/55 NIBP BP-Mean 86 Respiration from ECG 21 SpO2 100 I&O: 12/18/16 12/19/16 12/20/16 06:59 06:59 06:59 Intake Total 1923.0 4367.3 Output Total 3270 5280 Balance -1347.0 -912.7 Result Diagrams: 12/19/16 03:51 12/19/16 03:51 <Chandrakant Askew - Last Filed: 12/19/16 07:43> - Objective Vital Signs & Weight: Vital Signs (12 hours) Temp Pulse Resp BP Pulse Ox 12/19/16 10:00 14 12/19/16 09:03 117 H 12/19/16 08:00 101.5 F H 117 H 14 94 L 12/19/16 07:00 101.5 F H 12/19/16 06:48 107 H 110/55 L 12/19/16 06:45 114 H 15 99 12/19/16 06:00 12 12/19/16 04:00 100.9 F H 16 12/19/16 03:12 113 H 12/19/16 03:10 108 H 18 97 12/19/16 02:00 12 12/19/16 00:26 99 12/19/16 00:00 100.7 F H 12 Weight Admit Weight 202 lb Weight 214 lb 1.102 oz Most Recent Monitor Data Heart Rate from ECG 105 NIBP 105/58 NIBP BP-Mean 68 Respiration from ECG 13 SpO2 94 I&O: 12/18/16 12/19/16 12/20/16 06:59 06:59 06:59 Intake Total 1923.0 4367.3 560 Output Total 3270 5280 1150 Balance -1347.0 -912.7 -590 Result Diagrams: 12/19/16 03:51 12/19/16 03:51 <Colin Bay - Last Filed: 12/19/16 10:55> Phys Exam - Physical Examination Constitutional: NAD sedated/intubated HEENT: moist MMs white thick sputum from ET tube Respiratory: clear to auscultation bilateral irregularly irregular Gastrointestinal: soft, non-tender Musculoskeletal: no edema, pulses present sedated <Chandrakant Askew - Last Filed: 12/19/16 07:43> Dx/Plan (1) Acute respiratory failure with hypoxia Code(s): J96.01 - ACUTE RESPIRATORY FAILURE WITH HYPOXIA Status: Acute Plan: Pt intially w/ intubation per cards and EP for cardioversion for a-flutter w/ RVR W/ underlying lung pathology, has been unable to wean s/p intubation Concern for alveolar involvement of lung malignancy primary causing this which pulm/crit care and [facility] Oncologist also believe is likely BAL cytology w/o malignant cells identified Specialist and primary team have discussed with family at length the poor prognosis of the patient Seen by palliative yesterday and patient transitioned to DNR Attempting to diurese patient. Improved vent settings w/ less PEEP s/p 5.2L out and net negative 1 L Per recent discussion w/ Dr. Velasquez, going to watch patient through the next day or so to see if he can be weaned off the vent Family states patient does not want a trach Concern that even if Pt's lungs do improve enough to be weaned from the vent, that he will likely not be strong enough to breath on his own 2/2 being intubated for >1 wk now Will continue to treat presumed underlying CAP w/ IV meropenem and micafungin per crit care reccomendations Addition of vancomycin to cover for possible staph/MRSA today w/ fever and increased WBC Repeat cultures obtained Cont. w/ mechanical ventilation with GI and DVT ppx w/ SCD's 2/2 GI bleed and thrombocytopenia Cont. to wean vent as tolerated (2) Atrial flutter with rapid ventricular response Code(s): I48.92 - UNSPECIFIED ATRIAL FLUTTER Status: Acute Plan: S/p cardioversion per cards and EP Amio gtt d/c'ed, pt tachycardic and appears to be in a-fib on lead 0.5 digoxin ordered per crit care recs. Will add IV dilt if pt goes into RVR cont. to hold eliquis 2/2 thrombocytopenia and bleed Rate controlled (3) Community acquired bacterial pneumonia Code(s): J15.9 - UNSPECIFIED BACTERIAL PNEUMONIA Status: Acute Plan: CTA showing possible atypical pneumonia Will continue to treat presumptive infection per Pulm/crit care, however spread of lung malignancy is more likely cause of sxs and difficulty weaning from vent Will kilgore-culture if pt becomes febrile Cultures NGTD Repeat Cx obtained w/ fever overnight Addition of micafungin and vanc (4) Primary cancer of right lung Code(s): C34.91 - MALIGNANT NEOPLASM OF UNSP PART OF RIGHT BRONCHUS OR LUNG Status: Acute Plan: Pending Oncology reccomendations See #1 (5) Primary colon cancer Code(s): C18.9 - MALIGNANT NEOPLASM OF COLON, UNSPECIFIED Status: Acute Plan: Pending oncology reccomendations Pt undergoing chemo and radiation outpatient for the past 3 weeks No BM, started on bowel regimen w/ dulcolax and reglan w/ improved residuals Will have low threshold in considering possible obstruction (6) Protein calorie malnutrition Code(s): E46 - UNSPECIFIED PROTEIN-CALORIE MALNUTRITION Status: Acute Plan: Cont. w/ tube feeds per nutrition Improved residuals s/p intiation of reglan Residuals <200 (7) Iron deficiency anemia Code(s): D50.9 - IRON DEFICIENCY ANEMIA, UNSPECIFIED Status: Acute Qualifiers: Iron deficiency anemia type: chronic blood loss Qualified Code(s): D50.0 - Iron deficiency anemia secondary to blood loss (chronic) Plan: Likely 2/2 chronic blood loss from colon cancer Now macrocytic likely 2/2 reticulocytosis s/p 2U PRBC earlier in hospital stay Hgb stable this AM Will continue to monitor and transfuse if w/ acute blood loss or w/ Hgb <7 or platelets <20 (8) Thrombocytopenia Code(s): D69.6 - THROMBOCYTOPENIA, UNSPECIFIED Status: Acute Plan: Improvement s/p transfusion but still downtrending Will continue to monitor and transfuse if indicated (9) Constipation Code(s): K59.00 - CONSTIPATION, UNSPECIFIED Status: Acute Plan: Cont. w/ bowel regimen (10) Hyperkalemia Code(s): E87.5 - HYPERKALEMIA Status: Acute Plan: Down to 5.1 from 6.2 yesterday s/p initiation of bicarb gtt per nephro w/ improvement in acidosis as well This will likely continue to down trend w/ improvement in renal function and positive bowel function no changes in EKG noted per review of tele leads Will continue to monitor (11) Acute renal failure Status: Acute Qualifiers: Acute renal failure type: with acute tubular necrosis Qualified Code(s): N17.0 - Acute kidney failure with tubular necrosis Plan: Improved renal function w/ significant diuresis again today Hyperkalemia resolved Adequate UOP 2.2 mL/Kg/Hr overnight Nephro on board, appreciate recs (12) Hypernatremia Code(s): E87.0 - HYPEROSMOLALITY AND HYPERNATREMIA Status: Acute Plan: Free water deficit of 1.9L from 3.9L this AM Cont. w/ free water flushes 100 cc q1 hr <Chandrakant Askew K - Last Filed: 12/19/16 07:43> Attending Addendum - Attending Addendum I personally evaluated the patient and discussed the management with Dr. Askew I agree with the History, Examination, Assessment and Plan documented above with any addition or exceptions noted below. Patient has multiple advanced problems and has been on the vent for a week. We are attempting to wean him. We will continue current therapy for now, but given his very poor prognosis and family wishes, we may want to start backing off if no improvement soon. <Colin Bay E - Last Filed: 12/19/16 10:55>
--- NOTE | 2016-12-19 08:59 | PRG ---
DATE OF SERVICE: 12/19/2016 SERVICE: Pulmonary Medicine. INTERVAL HISTORY: The patient is doing okay from a respiratory standpoint. He is on a little bit l ess oxygen and a little less PEEP today. He cannot provide any additional elements of the history. He is on fentanyl 150 an hour, which was slowly decreasing. There were no overnight events otherwi se. PHYSICAL EXAMINATION: VITAL SIGNS: T-max 101.5, pulse 107, blood pressure 110/55, respirations 15, saturation 99% on 50% FIO2 and a PEEP of 11. HEENT: Normocephalic, atraumatic. Sclerae are white, conjunctivae pink. Oral mucosa is moist with out lesions. LUNGS: Decreased air entry. Dependent crackles are present. No prolonged expiratory phase. HEART: Tachycardic. Regular. ABDOMEN: Soft, nontender, nondistended, bowel sounds positive. MUSCULOSKELETAL: No cyanosis or clubbing. There is 1+ pitting in the bilateral lower extremities. NEUROLOGIC: Grossly nonfocal. LABORATORY DATA: WBC 26.9, hemoglobin 8.9 and stable. Platelets 49,000. BUN 78, creatinine 1.18. Glucose 147. Sodium is gently up trending to 152, chloride 108. Bicarbonate has jumped to 34. IMAGING: Chest x-ray demonstrates bilateral interstitial and alveolar opacifications. Port cathete r is in good position. The endotracheal tube is also in good position roughly 5 cm above the lucero . There is slightly widened lucero angle suggestive of left atrial enlargement or mediastinal lymph adenopathy. Enteric catheter is coursing well below the level of the diaphragm. ASSESSMENT: 1. Acute hypoxic respiratory failure. 2. Severe sepsis. 3. Acute kidney injury, resolving. 4. Hypernatremia. 5. Healthcare-associated pneumonia, possible secondary to Yoly. 6. Immunocompromise state, on outpatient chemotherapy. PLAN: Because of the temperature, repeat cultures were obtained, which I agree with. Vancomycin wa s added which is fine. I am doubtful this represents an MRSA type of an infection; however, given t hat his previous Gram stain was unremarkable. We will continue to diurese him on a daily basis to [facility] if we can keep him closer to even for the hospital stay. I had a very long conversation with the family. At this time, the plan is to continue supportive care for the patient. In 1-2 days, if he continues to have high oxygen requirements, the plan is to transition over to comfort care only and proceed with compassionate extubation to allow for natural . Under no circumstances would the family be interested in pursuing tracheostomy or PEG tube as this would be a violation of what the patient wants for himself based on what they are telling me. As such, if his oxygen requirements im prove, and he is deconditioned to the point where he needs to be reintubated, this would not be ente rtained. CRITICAL CARE TIME: Thirty minutes.
[2016-12-19] MEDS: Digoxin 0.25 MG TAB PO SCH (09:03)
[2016-12-19] MEDS: Folic Acid 1 MG TAB PO SCH (09:03)
[2016-12-19] MEDS: Vancomycin HCl 1 GM in Premix Bag 1 BAG IVPB SCH ×2 (09:03→19:21)
[2016-12-19] MEDS: Docusate 100 MG CAP PO SCH ×2 (09:03→21:52)
[2016-12-19] MEDS: MEROPENEM 1 GM/50 ML 1 GM in Premix Bag 1 BAG IVPB SCH ×2 (09:04→21:53)
[2016-12-19] MEDS: Tamsulosin HCl 0.4 MG CAP PO SCH (09:04)
[2016-12-19] MEDS: Polyethylene Glycol 3350 17 GM Packet PO SCH (09:04)
--- NOTE | 2016-12-19 10:16 | RAD ---
CHEST SEMIUPRIGHT PORTABLE 1 VIEW: HISTORY: A 76-year-old male with intubation and respiratory insufficiency, followup. COMPARISON: Life support tubes again noted in place and stable. Extensive bilateral interstitial and alveolar o pacities throughout both lungs showing little change from prior study. IMPRESSION: Extensive but overall stable bilateral alveolar interstitial opacities throughout both lungs. Stabl e life support tubes. Continue short term followup. POS: [facility]
[2016-12-19] MEDS: Micafungin 100 MG in Sodium Chloride 0.9% 100 ML IVPB SCH (14:57)
--- NOTE | 2016-12-20 00:38 | PRG ---
DATE OF SERVICE: 12/19/2016 SUBJECTIVE: This is a very unfortunate 76-year-old gentleman with a history of malignancy in the nv st. I believe he has had a lung cancer. He has developed pneumonia and acute renal failure which n ow seems to be improving. He also has history of thrombocytopenia. He has had a history of periphe ral vascular disease, recently underwent angioplasty and stent placement to the left lower extremity and was pending undergoing a further intervention to the right lower extremity when he was found to be in the office and noted to be in atrial fibrillation with rapid ventricular response. At this t kelsey, the heart rate is under reasonable control with medications. He had been on amiodarone and has had episodes of and been converted to sinus rhythm, but then had been converted back to atrial fibr illation. The amiodarone was discontinued due to the thought that perhaps this was causing some deg ree of thrombocytopenia. At this time, he still remains in atrial fibrillation. He is on the venti lator due to respiratory failure. He had been considered for a DNR status, but the last 48 hours hi s renal function has improved slightly and he is started to diurese. He was felt to have sepsis, bu t overall seems to be trending slightly on the improvement side. PHYSICAL EXAMINATION: VITAL SIGNS: Today his blood pressure is 92/55, heart rate is in the 90s to low 100s with atrial fi brillation, respiratory rate is 28. He remains on the ventilator, O2 saturation 96%. CHEST: Examination shows his chest to have bilateral rales. CARDIOVASCULAR: Irregularly irregular, did not have any gross murmurs. ABDOMEN: Soft and nontender. EXTREMITIES: Showed no significant clubbing or cyanosis. Pedal pulses are present in the left side . I could not palpate pedal pulses on the right side. LABORATORY DATA: Today shows a white blood cell count of 26,900, hemoglobin 8.9, hematocrit 29, and platelet count is 49,000, yesterday in the morning platelet count was 25. This may be due to overw helming sepsis and hopefully we will recover somewhat if he continues with the antibiotics and he st ill remains on the ventilator at this time. IMPRESSION: 1. Lung cancer without any significant changes that we are aware of. 2. Respiratory failure, he remains on the ventilator, most likely due to bilateral pneumonias. 3. History of acute renal failure which seems to be slightly improved. He has had urine output, hi s creatinine is now decreased back down to normal at 1.18, couple of days ago was over 2, the highes t was 2.23 and today is 1.18. He still hyponatremic, sodium is 152, chloride was 108, bicarbonate i s 34. Blood sugar was 147. He has diuresed significant amount the last couple days. Yesterday, he diuresed and had on the a negative at 1347 yesterday, negative balance of 912 mL and today alecia s far negative output of 1010 mL. 4. Atrial fibrillation which we will continue to monitor, he is under relatively good rate control at this time. We will continue the present medications. He may need and eventually be started on s ome other type of oral anticoagulation as well as antiarrhythmic medications, and some of these are being held due to his severe thrombocytopenia. 5. Pneumonia for which he continues on antibiotics. 6. Acute renal failure which seems to be improving. I will continue supportive care on this patien t. We will continue to follow him very carefully with you.
[2016-12-20] MEDS: Fentanyl 20 MCG/ML 250 ML IVPB SCH (02:37)
[2016-12-20] MEDS: Pantoprazole 40 MG VIAL IVP SCH ×2 (04:16→15:34)
[2016-12-20 05:05] LABS: Anion Gap 12 mmol/L (10-20); BUN (Urea Nitrogen) 72 mg/dL (8.4-25.7); Calc. Creatinine Clearance 77 mL/min (70-130); Calcium 8.1 mg/dL (7.8-10.44); Carbon Dioxide 37 mmol/L (23-31); Chloride 102 mmol/L (98-107); Estimated GFR-MDRD 62
[2016-12-20 05:23] LABS: Band 2 % (5-11); Basophilic Stippling SLIGHT = 1-2 cells (100X) (None Seen); Hematocrit 28.8 % (42.0-52.0); Macrocytosis SLIGHT = 6-15 cells (100X) (0-5/hpf); Mean Platelet Volume 11.1 fL (7.4-10.4); Myelocyte 1 % (0-0); Neutrophil 96 % (42-75); Red Blood Cell (RBC) Count 2.46 mill/uL (4.70-6.10); White Blood Cell (WBC) Count 28.7 thou/uL (4.8-10.8)
[2016-12-20] MEDS: Metoclopramide HCl 10 MG/2 ML VIAL IVP SCH (06:33)
[2016-12-20] MEDS: Furosemide 40 MG/4 ML VIAL SLOW IVP SCH ×2 (06:33→13:31)
[2016-12-20] MEDS: Bisacodyl 10 MG SUPP PR SCH (06:33)
--- NOTE | 2016-12-20 06:44 | PRG ---
DATE OF SERVICE: 12/19/2016 SUBJECTIVE: The patient was seen and examined, still on life support and noted with the following v ital signs. OBJECTIVE: VITAL SIGNS: Blood pressure 120/93, pulse 98, respiratory rate 21. CARDIOVASCULAR SYSTEM: First and second heart sounds heard. RESPIRATORY SYSTEM: Reveals vented sounds. DIGESTIVE: Revealed a benign abdomen. EXTREMITIES: Showed no peripheral edema. LABORATORY INVESTIGATIONS: .
--- NOTE | 2016-12-20 07:31 | PDOC.FM ---
- Subjective Subjective: AIMEE overnight, intubated, sedated on 100 mcg of fentanyl. No changes in vent setting from yesterday w/ continued diuresis. No family in room this AM. - Objective MAR Reviewed: Yes Vital Signs & Weight: Vital Signs (12 hours) Temp Pulse Resp BP Pulse Ox 12/20/16 07:10 99.0 F 101 H 15 97 12/20/16 06:35 109 H 113/52 L 12/20/16 06:22 101 H 15 97 12/20/16 06:00 18 12/20/16 04:00 99.5 F 16 12/20/16 03:15 95 18 98 12/20/16 02:00 16 12/20/16 01:20 100 12/20/16 00:00 99.0 F 21 H 12/19/16 22:09 103 H 12/19/16 22:08 98 15 95 12/19/16 22:00 21 H 12/19/16 20:00 99.2 F 20 12/19/16 19:53 99.2 F 98 16 99 Weight Admit Weight 91.626 kg Weight 99.4 kg Most Recent Monitor Data Heart Rate from ECG 105 NIBP 109/48 NIBP BP-Mean 63 Respiration from ECG 24 SpO2 97 I&O: 12/19/16 12/20/16 12/21/16 06:59 06:59 06:59 Intake Total 4367.3 3240 Output Total 5280 4830 120 Balance -912.7 -1590 -120 Result Diagrams: 12/20/16 04:34 12/20/16 04:34 <Chandrakant Askew - Last Filed: 12/20/16 07:30> - Objective Vital Signs & Weight: Vital Signs (12 hours) Temp Pulse Resp BP Pulse Ox 12/20/16 10:46 85 19 93 L 12/20/16 10:00 18 12/20/16 08:37 108 H 12/20/16 08:00 15 12/20/16 07:10 99.0 F 101 H 15 97 12/20/16 06:35 109 H 113/52 L 12/20/16 06:22 101 H 15 97 12/20/16 06:00 18 12/20/16 04:00 99.5 F 16 12/20/16 03:15 95 18 98 12/20/16 02:00 16 11/12/17 01:20 100 12/20/16 00:00 99.0 F 21 H Weight Admit Weight 202 lb Weight 219 lb 2.232 oz Most Recent Monitor Data Heart Rate from ECG 88 NIBP 118/61 NIBP BP-Mean 69 Respiration from ECG 16 SpO2 93 I&O: 12/19/16 12/20/16 12/21/16 06:59 06:59 06:59 Intake Total 4367.3 3240 460 Output Total 5280 4830 340 Balance -912.7 -1590 120 Result Diagrams: 12/20/16 04:34 12/20/16 04:34 <Colin Bay - Last Filed: 12/20/16 10:48> Phys Exam - Physical Examination intubated/sedated pinpoint course rhonchi throughout Cardiovascular: RRR Gastrointestinal: soft, no distention Musculoskeletal: pulses present sedated Deviation from normal: sedated/intubated <Chandrakant Askew - Last Filed: 12/20/16 07:30> Dx/Plan (1) Acute respiratory failure with hypoxia Code(s): J96.01 - ACUTE RESPIRATORY FAILURE WITH HYPOXIA Status: Acute Plan: Pt intially w/ intubation per cards and EP for cardioversion for a-flutter w/ RVR W/ underlying lung pathology, has been unable to wean s/p intubation Concern for alveolar involvement of lung malignancy primary causing this which pulm/crit care and Ankit Oncologist also believe is likely BAL cytology w/o malignant cells identified Specialist and primary team have discussed with family at length the poor prognosis of the patient Now DNR, after speaking with family if still requiring significant mechanical ventilation will plan to move on to comfort care Wednesday Cont. to diurese patient. Family states patient does not want a trach Will continue to treat presumed underlying CAP w/ IV meropenem and micafungin per crit care recs cont. w/ vancomycin to cover for possible staph/MRSA Repeat cultures pending Cont. w/ mechanical ventilation with GI and DVT ppx w/ SCD's 2/2 GI bleed and thrombocytopenia Cont. to wean vent as tolerated No changes in vent setting on SIMV PEEP 11 with continued diuresis. Pt prognosis remains very poor and do not feel that significant improvement in his respiratory status will be obtained. Will continue to watch throughout the day with plans for likely transition to comfort care tomorrow (2) Atrial flutter with rapid ventricular response Code(s): I48.92 - UNSPECIFIED ATRIAL FLUTTER Status: Acute Plan: S/p cardioversion per cards and EP Amio gtt d/c'ed, pt tachycardic and appears to be in a-fib on lead 0.5 digoxin ordered per crit care recs. Will add IV dilt if pt goes into RVR cont. to hold eliquis 2/2 thrombocytopenia and bleed Rate controlled Appreciate recs (3) Community acquired bacterial pneumonia Code(s): J15.9 - UNSPECIFIED BACTERIAL PNEUMONIA Status: Acute Plan: CTA showing possible atypical pneumonia Will continue to treat presumptive infection per Pulm/crit care, however spread of lung malignancy is more likely cause of sxs and difficulty weaning from vent Will kilgore-culture if pt becomes febrile Cultures NGTD Repeat Cx obtained w/ fever overnight cont w/ meropenem, micafungin and vanc (4) Primary cancer of right lung Code(s): C34.91 - MALIGNANT NEOPLASM OF UNSP PART OF RIGHT BRONCHUS OR LUNG Status: Acute Plan: Onc on board, appreciate recs See #1 (5) Primary colon cancer Code(s): C18.9 - MALIGNANT NEOPLASM OF COLON, UNSPECIFIED Status: Acute Plan: Appreciate oncology recs Pt undergoing chemo and radiation outpatient for the past 3 weeks No BM, started on bowel regimen w/ dulcolax and reglan w/ improved residuals Will have low threshold in considering possible obstruction (6) Protein calorie malnutrition Code(s): E46 - UNSPECIFIED PROTEIN-CALORIE MALNUTRITION Status: Acute Plan: Cont. w/ tube feeds per nutrition Improved residuals s/p intiation of reglan Residuals <200 (7) Iron deficiency anemia Code(s): D50.9 - IRON DEFICIENCY ANEMIA, UNSPECIFIED Status: Acute Qualifiers: Iron deficiency anemia type: chronic blood loss Qualified Code(s): D50.0 - Iron deficiency anemia secondary to blood loss (chronic) Plan: Likely 2/2 chronic blood loss from colon cancer Now macrocytic likely 2/2 reticulocytosis s/p 2U PRBC earlier in hospital stay Hgb stable this AM Will continue to monitor and transfuse if w/ acute blood loss or w/ Hgb <7 or platelets <20 (8) Thrombocytopenia Code(s): D69.6 - THROMBOCYTOPENIA, UNSPECIFIED Status: Acute Plan: Improvement s/p transfusion but still downtrending Will continue to monitor and transfuse if indicated (<20) (9) Constipation Code(s): K59.00 - CONSTIPATION, UNSPECIFIED Status: Resolved Plan: Cont. w/ bowel regimen (10) Acute renal failure Status: Acute Qualifiers: Acute renal failure type: with acute tubular necrosis Qualified Code(s): N17.0 - Acute kidney failure with tubular necrosis Plan: Improved renal function w/ significant diuresis again today Hyperkalemia resolved Adequate UOP 2.02 mL/Kg/Hr overnight Likely in post-ATN diuresis Nephro on board, appreciate recs (11) Hypernatremia Code(s): E87.0 - HYPEROSMOLALITY AND HYPERNATREMIA Status: Acute Plan: Free water deficit of 1.1L from 3.9L this AM Cont. w/ free water flushes 100 cc q1 hr and D5W <Chandrakant Askew K - Last Filed: 12/20/16 07:30> Attending Addendum - Attending Addendum I personally evaluated the patient and discussed the management with Dr. Askew I agree with the History, Examination, Assessment and Plan documented above with any addition or exceptions noted below. Patient is unchanged with multiple issues. At this point, he is going to be a hospice patient. We will continue to try to wean vent and manage other problems as noted. <Colin Bay - Last Filed: 12/20/16 10:48>
[2016-12-20] MEDS: Vancomycin HCl 1 GM in Premix Bag 1 BAG IVPB SCH ×2 (08:36→19:44)
[2016-12-20] MEDS: Digoxin 0.25 MG TAB PO SCH (08:37)
[2016-12-20] MEDS: Tamsulosin HCl 0.4 MG CAP PO SCH (08:37)
[2016-12-20] MEDS: Folic Acid 1 MG TAB PO SCH (08:37)
[2016-12-20] MEDS: Polyethylene Glycol 3350 17 GM Packet PO SCH (08:38)
[2016-12-20] MEDS: Docusate 100 MG CAP PO SCH ×2 (08:39→21:05)
[2016-12-20] MEDS: Dextrose 5% in Water 1,000 ML IV SCH ×2 (08:40→10:05)
[2016-12-20] MEDS: MEROPENEM 1 GM/50 ML 1 GM in Premix Bag 1 BAG IVPB SCH ×2 (08:42→20:58)
--- NOTE | 2016-12-20 09:02 | PDOC.CTH ---
<Koki Echavarria - Last Filed: 12/20/16 08:54> Cardiology Progress Note - Subjective The pt was seen and examined. No overnight night events. DNR and possible withdraw of care tomorrow - Objective Vital Signs Temp Pulse Resp BP Pulse Ox 12/20/16 08:37 108 H 12/20/16 08:00 15 12/20/16 07:10 99.0 F 101 H 15 97 12/20/16 06:35 109 H 113/52 L 12/20/16 06:22 101 H 15 97 12/20/16 06:00 18 12/20/16 04:00 99.5 F 16 12/20/16 03:15 95 18 98 12/20/16 02:00 16 12/20/16 01:20 100 12/20/16 00:00 99.0 F 21 H 12/19/16 22:09 103 H 12/19/16 22:08 98 15 95 12/19/16 22:00 21 H Admit Weight 202 lb Weight 219 lb 2.232 oz 12/19/16 12/20/16 12/21/16 06:59 06:59 06:59 Intake Total 4367.3 3240 260 Output Total 5280 4830 180 Balance -912.7 -1590 80 - Physical Examination General/Neuro: other: (sedated) Neck: no JVD present Lungs: other: (coarses and diminished at bases) Heart: other: (irregular) Abdomen: soft Extremities: other: (non pitting edema in Bilat foot) - Telemetry Telemetry Rhythm: Afib 80-100s - Labs Result Diagrams: 12/20/16 04:34 12/20/16 04:34 Troponin/CKMB CK-MB (CK-2) 4.0 ng/mL (0-6.6) 12/10/16 11:22 Troponin I Less than 0.010 ng/mL (< 0.028) 12/10/16 11:22 - Assessment/Plan 1. AFlutter w/RVR - HR 90-100s, hold OAC due to thrombocytopenia and bleed; Cont. monitor 2. Acute respiratory failure with hypoxia - On Mechanical Vent support; 3. CA Pneumonia - on IV antibiotics; managed by PCP 4. Acute Renal failure - improved 5. Thrombocytopenia - holding OAC MAR reviewed <Arpita Lezama - Last Filed: 12/20/16 16:18> Cardiology Progress Note - Objective Vital Signs Temp Pulse Resp BP Pulse Ox 12/20/16 16:00 18 12/20/16 15:01 109 H 12/20/16 14:57 93 20 93 L 12/20/16 14:00 22 H 12/20/16 12:00 98.7 F 18 12/20/16 10:47 94 118/61 12/20/16 10:46 85 19 93 L 12/20/16 10:00 18 12/20/16 08:37 108 H 12/20/16 08:00 15 12/20/16 07:10 99.0 F 101 H 15 97 12/20/16 06:35 109 H 113/52 L 12/20/16 06:22 101 H 15 97 12/20/16 06:00 18 Admit Weight 202 lb Weight 219 lb 2.232 oz 12/19/16 12/20/16 12/21/16 06:59 06:59 06:59 Intake Total 4367.3 3240 1350 Output Total 5280 4830 1480 Balance -912.7 -1590 -130 - Labs Result Diagrams: 12/20/16 04:34 12/20/16 04:34 Troponin/CKMB CK-MB (CK-2) 4.0 ng/mL (0-6.6) 12/10/16 11:22 Troponin I Less than 0.010 ng/mL (< 0.028) 12/10/16 11:22 - Assessment/Plan Pt. was seen and evaluated by me. I agree with the A/P by the VIDEO CONTROL ENGINEER poor prognosis.
--- NOTE | 2016-12-20 14:28 | PRG ---
DATE OF SERVICE: 12/20/2016 SERVICE: Pulmonary Medicine. INTERVAL HISTORY: The patient is doing poorly from a respiratory standpoint. Despite the fact, we diuresed and fairly aggressively, his oxygen requirements have only marginally improved. He cannot provide any additional elements of the history. With completely turned off sedation for the time be ing and I hopefully awaiting for him to wake up at some point so that we can see what his neurologic status looks like. There were no significant overnight events. PHYSICAL EXAMINATION: VITAL SIGNS: Currently afebrile with a T-max yesterday afternoon of 101.2. Pulse 108, blood pressu re 100/57, respirations 16, saturation 91% on 60% FIO2 and a PEEP of 11. HEENT: Normocephalic, atraumatic. Sclerae are white, conjunctivae pink. Oral and nasal mucosa is moist without lesions. LUNGS: Extensive crackles are present, particularly on the right. There are still some crackles in the left lung, but much less. There is no significant prolonged expiratory phase or wheezing. Rho nchi are present, particularly on the right. HEART: Normal rate, regular. ABDOMEN: Soft, nontender, nondistended. Bowel sounds are positive. MUSCULOSKELETAL: No cyanosis or clubbing. There is trace 1+ pitting throughout, but this is, impro michael. LABORATORY DATA: WBC 28.7, hemoglobin 8.8, platelets 33,000 and decreasing. Neutrophils 96, band c ount is only 2%. INR 1.9. Sodium 147, potassium 3.6, bicarbonate 37, BUN 72, creatinine 1.16. Rep eat blood cultures, urine culture negative to date. ASSESSMENT: 1. Acute hypoxic respiratory failure. 2. Possible acute respiratory distress syndrome. 3. Healthcare-associated pneumonia. 4. Acute kidney injury, resolving. 5. Metabolic encephalopathy. 6. Severe sepsis. 7. Hypernatremia, improving. 8. Immunocompromised state. PLAN: I will continue given the patient free water over the next 24-48 hours. He started to clear some toxins through his kidney. Of note, his BUN is starting to trend into a favorable direction. If his oxygen requirements do not drastically improve over the next 1-2 days, my suspicion is that t he patient would be so incredibly debilitated that he would have a difficult time coming off mechani adrian ventilation without interim tracheostomy. The patient's family has already suggested that this is not an option for them. As such, over the next 24 hours, we do not see a dramatic improvement, I think it would be in keeping with the patient's wishes to transition over to comfort care only and allow for the patient to have a natural . Dr. Conti will resume care in the morning. I will al so get an ABG to see and replace dose of potassium.
[2016-12-20] MEDS: Micafungin 100 MG in Sodium Chloride 0.9% 100 ML IVPB SCH (15:34)
[2016-12-20 19:22] LABS: Vancomycin, Trough 23.5 ug/mL
[2016-12-21] MEDS: Pantoprazole 40 MG VIAL IVP SCH (03:57)
[2016-12-21] MEDS: Dextrose 5% in Water 1,000 ML IV SCH (03:58)
[2016-12-21 04:58] LABS: BUN (Urea Nitrogen) 78 mg/dL (8.4-25.7); Calc. Creatinine Clearance 61 mL/min (70-130); Calcium 8.2 mg/dL (7.8-10.44); Estimated GFR-MDRD 46; Magnesium 1.3 mg/dL (1.6-2.6); Phosphorus 4.5 mg/dL (2.3-4.7)
[2016-12-21 05:07] LABS: Anion Gap 13 mmol/L (10-20); Carbon Dioxide 37 mmol/L (23-31); Chloride 98 mmol/L (98-107)
[2016-12-21 05:14] LABS: #Eosinphils 0.1 thou/uL (0.0-0.7); #Lymphocytes 0.4 thou/uL (1.20-3.40); #Monocytes 1.5 thou/uL (0.11-0.59); #Neutrophils 28.7 thou/uL (1.40-6.50); %Eosinophils 0.2 % (0.0-10.0); %Lymphocytes 1.3 % (21.0-51.0); Anisocytosis SLIGHT = 6-15 cells (100X) (0-5/hpf); Hematocrit 30.7 % (42.0-52.0); Macrocytosis SLIGHT = 6-15 cells (100X) (0-5/hpf); Mean Platelet Volume 11.7 fL (7.4-10.4); Red Blood Cell (RBC) Count 2.58 mill/uL (4.70-6.10); White Blood Cell (WBC) Count 30.7 thou/uL (4.8-10.8)
[2016-12-21] MEDS: Furosemide 40 MG/4 ML VIAL SLOW IVP SCH (05:40)
[2016-12-21] MEDS: MEROPENEM 1 GM/50 ML 1 GM in Premix Bag 1 BAG IVPB SCH (05:41)
--- NOTE | 2016-12-21 06:07 | PRG ---
DATE OF SERVICE: 12/20/2016 SUBJECTIVE: The patient noted no change significantly clinical amado, remained hemodynamically stabl e while undergoing diuresis. PHYSICAL EXAMINATION: HEENT: CARDIOVASCULAR SYSTEM: First and second heart sounds are heard, tachycardic. RESPIRATORY SYSTEM: Revealed vented sounds. DIGESTIVE SYSTEM: . IMPRESSION: 1. Acute kidney injury, which seems to have resolved. 2. Cardiopulmonary failure. . PLAN: 1. 2. We will continue with current renal supportive measures. 3. Further management will be dependent on the clinical course.
[2016-12-21 06:51] VITALS: BP 111/56
[2016-12-21] MEDS: Bisacodyl 10 MG SUPP PR SCH (07:21)
[2016-12-21] MEDS ORDERED: Vancomycin HCl 750 MG in Sodium Chloride 0.9% 250 ML 250 ML IVPB SCH (08:00)
[2016-12-21 08:06] VITALS: TEMP 97.9
--- NOTE | 2016-12-21 08:36 | RAD ---
PORTABLE SEMIUPRIGHT FRONTAL CHEST RADIOGRAPH: Date: 02/21/16 Time: 0452 hours COMPARISON: 12/19/16. HISTORY: Respiratory distress, intubated CCU patient. FINDINGS: Vascular catheter is present, distal tip overlying the cavoatrial junction. Cervical spine hardware is present. Endotracheal tube and nasogastric tube in stable position. There is extensive interstitial opacity throughout both lungs with a perihilar and basilar predomina nce. There is air space disease in bilateral perihilar regions and both lung bases, left greater shakila n right, nonspecific and unchanged. IMPRESSION: Stable appearance of the chest. POS: [facility]
--- NOTE | 2016-12-21 08:36 | PRG ---
DATE OF SERVICE: 12/21/2016 This morning he is intubated on the vent, sedated. PHYSICAL EXAMINATION: VITAL SIGNS: Pulse is 106, blood pressure 130/65, saturation 98%, respirations 20. He is on steroids, micafungin, and vancomycin and steroids. Bronch washings are growing Yoly, but nothing else. I's and O's are 367 in, 528 out. CHEST: Chest revealed bilateral rhonchi, crackles. CARDIAC: Atrial fibrillation. ABDOMEN: Soft. LABORATORY DATA: White count 13,000, H\T\H 9 and 30, platelet count 29,000. Creatinine is 1.9, BUN 78. X-ray shows bilaterally infiltrates though his left lung appears to have been somewhat better. IMPRESSION: 1. Respiratory failure. 2. Adult respiratory distress syndrome. 3. Metastatic lung cancer. 4. Renal failure. 5. Encephalopathy. 6. Marked leukocytosis. PLAN: Will discuss with family as they arrive. At this time, prognosis is grave. He is not weanab le. Antibiotics, neb treatments, supportive care. I will follow. One-half hour critical care time.
[2016-12-21] MEDS: Digoxin 0.25 MG TAB PO SCH (09:07)
[2016-12-21] MEDS: Tamsulosin HCl 0.4 MG CAP PO SCH (09:08)
[2016-12-21] MEDS: Folic Acid 1 MG TAB PO SCH (09:08)
[2016-12-21] MEDS: Docusate 100 MG CAP PO SCH (09:09)
[2016-12-21] MEDS: Polyethylene Glycol 3350 17 GM Packet PO SCH (09:09)
[2016-12-21 10:10] VITALS: BMI 30.8
[2016-12-21] MEDS ORDERED: Morphine 4 MG/ML Carpuject IVP PRN (10:35)
[2016-12-21] MEDS ORDERED: DC Sedation Protocol FS ONE (10:35)
[2016-12-21] MEDS ORDERED: Morphine 10 MG/ML VIAL SLOW IVP PRN (10:55)
--- NOTE | 2016-12-21 11:51 | PDOC.FM ---
- Subjective Subjective: AIMEE overnight, still requiring large amounts of mechanical ventilation. No family in room today. VSS - Objective MAR Reviewed: Yes Vital Signs & Weight: Vital Signs (12 hours) Temp Pulse Resp BP Pulse Ox 12/21/16 09:07 101 H 12/21/16 08:00 97.9 F 101 H 21 H 12/21/16 06:48 97 111/56 L 12/21/16 06:46 111 H 17 94 L 12/21/16 06:00 18 12/21/16 04:00 98.6 F 18 12/21/16 02:50 90 12/21/16 02:49 88 16 94 L 12/21/16 02:00 22 H 12/21/16 00:00 98.8 F 15 Weight Admit Weight 91.626 kg Weight 97.4 kg Most Recent Monitor Data Heart Rate from ECG 104 NIBP 104/59 NIBP BP-Mean 68 Respiration from ECG 23 SpO2 89 I&O: 12/20/16 12/21/16 12/22/16 06:59 06:59 06:59 Intake Total 3240 5505 1211 Output Total 4830 2760 715 Balance -1590 2745 496 Result Diagrams: 12/21/16 04:05 12/21/16 04:05 <Chandrakant Askew - Last Filed: 12/21/16 11:44> - Objective Vital Signs & Weight: Weight Admit Weight 91.626 kg Weight 97.4 kg Most Recent Monitor Data Heart Rate from ECG 104 NIBP 104/59 NIBP BP-Mean 68 Respiration from ECG 23 SpO2 89 I&O: 12/21/16 12/22/16 12/23/16 06:59 06:59 06:59 Intake Total 5505 1211 Output Total 2760 715 Balance 2745 496 Result Diagrams: 12/21/16 04:05 12/21/16 04:05 <Lida Rodriguez - Last Filed: 12/22/16 07:13> Dx/Plan (1) Acute respiratory failure with hypoxia Code(s): J96.01 - ACUTE RESPIRATORY FAILURE WITH HYPOXIA Status: Acute Plan: Pt intially w/ intubation per cards and EP for cardioversion for a-flutter w/ RVR W/ underlying lung pathology, has been unable to wean s/p intubation Concern for alveolar involvement of lung malignancy primary causing this which pulm/crit care and Ankit Oncologist also believe is likely BAL cytology w/o malignant cells identified Specialist and primary team have discussed with family at length the poor prognosis of the patient Now DNR, after speaking with family if still requiring significant mechanical ventilation will plan to move on to comfort care Wednesday Cont. to diurese patient. Family states patient does not want a trach Likely withdrawl care today 2/2 no improvement in resp status (2) Atrial flutter with rapid ventricular response Code(s): I48.92 - UNSPECIFIED ATRIAL FLUTTER Status: Acute Plan: S/p cardioversion per cards and EP Amio gtt d/c'ed, pt tachycardic and appears to be in a-fib on lead 0.5 digoxin ordered per crit care recs. Will add IV dilt if pt goes into RVR cont. to hold eliquis 2/2 thrombocytopenia and bleed Rate controlled Appreciate recs Withdrawing care today likely (3) Community acquired bacterial pneumonia Code(s): J15.9 - UNSPECIFIED BACTERIAL PNEUMONIA Status: Acute Plan: CTA showing possible atypical pneumonia Will continue to treat presumptive infection per Pulm/crit care, however spread of lung malignancy is more likely cause of sxs and difficulty weaning from vent Will kilgore-culture if pt becomes febrile Cultures NGTD Repeat Cx obtained w/ fever overnight cont w/ meropenem, micafungin and vanc (4) Primary cancer of right lung Code(s): C34.91 - MALIGNANT NEOPLASM OF UNSP PART OF RIGHT BRONCHUS OR LUNG Status: Acute Plan: Onc on board, appreciate recs See #1 (5) Primary colon cancer Code(s): C18.9 - MALIGNANT NEOPLASM OF COLON, UNSPECIFIED Status: Acute Plan: Appreciate oncology recs Pt undergoing chemo and radiation outpatient for the past 3 weeks No BM, started on bowel regimen w/ dulcolax and reglan w/ improved residuals Will have low threshold in considering possible obstruction (6) Protein calorie malnutrition Code(s): E46 - UNSPECIFIED PROTEIN-CALORIE MALNUTRITION Status: Acute Plan: Cont. w/ tube feeds per nutrition Improved residuals s/p intiation of reglan Residuals <200 (7) Iron deficiency anemia Code(s): D50.9 - IRON DEFICIENCY ANEMIA, UNSPECIFIED Status: Acute Qualifiers: Iron deficiency anemia type: chronic blood loss Qualified Code(s): D50.0 - Iron deficiency anemia secondary to blood loss (chronic) Plan: Likely 2/2 chronic blood loss from colon cancer Now macrocytic likely 2/2 reticulocytosis s/p 2U PRBC earlier in hospital stay Hgb stable this AM Will continue to monitor and transfuse if w/ acute blood loss or w/ Hgb <7 or platelets <20 (8) Thrombocytopenia Code(s): D69.6 - THROMBOCYTOPENIA, UNSPECIFIED Status: Acute Plan: Improvement s/p transfusion but still downtrending Will continue to monitor and transfuse if indicated (<20) (9) Constipation Code(s): K59.00 - CONSTIPATION, UNSPECIFIED Status: Resolved Plan: Cont. w/ bowel regimen (10) Acute renal failure Status: Acute Qualifiers: Acute renal failure type: with acute tubular necrosis Qualified Code(s): N17.0 - Acute kidney failure with tubular necrosis Plan: Improved renal function w/ significant diuresis again today Hyperkalemia resolved Adequate UOP 2.02 mL/Kg/Hr overnight Likely in post-ATN diuresis Nephro on board, appreciate recs (11) Hypernatremia Code(s): E87.0 - HYPEROSMOLALITY AND HYPERNATREMIA Status: Acute Plan: Free water deficit of 1.1L from 3.9L this AM Cont. w/ free water flushes 100 cc q1 hr and D5W <Chandrakant Askew - Last Filed: 12/21/16 11:44> Attending Addendum - Attending Addendum I personally evaluated the patient and discussed the management with Dr. Askew I agree with the History, Examination, Assessment and Plan documented above with any addition or exceptions noted below. Patient seen on date of service at 0900. Family at bedside. Will proceed with withdrawal of care. EliceoMD <Lida Rodriguez - Last Filed: 12/22/16 07:13>
[2016-12-21] MEDS ORDERED: Lorazepam 2 MG/ML VIAL SLOW IVP SCH (12:00)
--- NOTE | 2016-12-22 14:46 | DS-2 ---
ATTENDING: Lida Rodriguez M.D. RESIDENT: Chandrakant Askew M.D. DATE OF ADMISSION: 12/07/2016 DATE OF : 12/21/2016 TIME OF : 11:05 a.m. on 12/21/2016 CAUSE OF : 1. Acute hypoxic respiratory failure. 2. Adult respiratory distress syndrome. 3. Severe sepsis secondary to healthcare-associated pneumonia. 4. Metastatic pulmonary adenocarcinoma. 5. Metabolic encephalopathy. 6. Acute tubular necrosis. 7. Atrial flutter with rapid ventricular response, status post cardioversion. 8. Thrombocytopenia. SECONDARY DIAGNOSES: 1. Invasive adenocarcinoma of the colon. 2. Peripheral vascular disease. HOSPITAL COURSE: The patient is a 76-year-old male, who initially presented to the ER for evaluation of weakness, shortness of breath, and decreased energy for approximately 2 weeks. The patient had been previously diagnosed with primary pulmonary adenocarcinoma about 6 months prior and had been undergoing chemotherapy and radiation therapy that would not interfere with his quality of life. The patient is also with fever during this time. The patient had been undergoing chemotherapy 3 times a week every third week and just started radiation the week prior, which he gets 3 days per week. The patient has been evaluated in the outpatient setting for persistent tachycardia by Dr. Hagan in the outpatient setting. However, the patient states he had not been to see the specialist yet for this evaluation. Upon admission, the patient with chest x-ray showing pulmonary vascular congestion with diffuse interstitial airspace opacities and trace pleural effusions concerning for possible pneumonia, likely atypical as well as stable scattered pulmonary nodules and mediastinal lymphadenopathy found on CTA for evaluation of PE, which was subsequently negative. The patient was admitted with sepsis secondary to pneumonia and started on IV antibiotics at this time. During hospital stay, the patient was found to be in atrial flutter and RVR, and Cardiology and Electrophysiology were subsequently consulted. The patient of note was DNR; however, with plan for cardioversion after failed medication management. The patient revoked DNR status for intubation with known risk of patient being unable to be weaned off the ventilator in the setting of pneumonia and pulmonary adenocarcinoma. The patient was successfully cardioverted and started on amiodarone drip thereafter. The patient was transferred to the ICU at that time. Unfortunately , the patient was unable to be weaned off the vent and required significant amounts of mechanical ventilatory support with elevated ventilatory pressures as high as bilevel 33/14.5. During patient's hospitalization, he also became hypernatremic which was resolved upon correction of his free water deficit as well as thrombocytopenic requiring platelet transfusion. Oncology, Cardiology, Electrophysiology, Palliative Care, Pulmonology, and Critical Care were consulted and gave recommendations during patient's hospital stay. After approximately 2 weeks on ventilatory support and patient's poor prognosis, the decision was made by family to transition patient over to comfort care. The patient was extubated and comfort care measures were undertaken. The patient passed on 12/21/2016 at 11:05 a.m. [facility]
--- NOTE | 2016-12-27 14:52 | EKG ---
Test Reason : Blood Pressure : / mmHG Vent. Rate : 092 BPM Atrial Rate : 394 BPM P-R Int : 000 ms QRS Dur : 076 ms QT Int : 350 ms P-R-T Axes : 000 009 000 degrees QTc Int : 432 ms Atrial fibrillation Abnormal ECG When compared with ECG of 10-DEC-2016 14:05, Atrial fibrillation has replaced Sinus rhythm Confirmed by NAVID ROBERTS (2) on 12/27/2016 2:51:35 PM Referred By: ALESSIA Confirmed By:NAVID ROBERTS
== END 2016-12-21 13:55 | disposition expired | DRG 870 ==
LOC: ERS 16:11 → IMCU/EMU 19:22 → CCU 12-10 12:20
PROVIDERS: ADMIT Family Medicine; ATTEND Family Medicine
PROC: 5A1955Z Respiratory Ventilation, Greater than 96 Consecutive Hours (ICD-10-PCS; principal; 2016-12-10)
PROC: B24BZZ4 Ultrasonography of Heart with Aorta, Transesophageal (ICD-10-PCS; 2016-12-10)
PROC: 0BH17EZ Insertion of Endotracheal Airway into Trachea, Via Natural or Artificial Opening (ICD-10-PCS; 2016-12-10)
PROC: 30233R1 Transfusion of Nonautologous Platelets into Peripheral Vein, Percutaneous Approach (ICD-10-PCS; 2016-12-10)
PROC: 30233N1 Transfusion of Nonautologous Red Blood Cells into Peripheral Vein, Percutaneous Approach (ICD-10-PCS; 2016-12-10)
PROC: 5A09357 Assistance with Respiratory Ventilation, Less than 24 Consecutive Hours, Continuous Positive Airway Pressure (ICD-10-PCS; 2016-12-10)
DX: A41.9 Sepsis, unspecified organism (principal); J96.01 Acute respiratory failure with hypoxia; N17.0 Acute kidney failure with tubular necrosis; J18.9 Pneumonia, unspecified organism; G93.41 Metabolic encephalopathy; E46 Unspecified protein-calorie malnutrition; I48.92 Unspecified atrial flutter; E87.0 Hyperosmolality and hypernatremia; D69.6 Thrombocytopenia, unspecified; I47.1 Supraventricular tachycardia; C18.9 Malignant neoplasm of colon, unspecified; I48.91 Unspecified atrial fibrillation; E87.2 Acidosis; C34.90 Malignant neoplasm of unspecified part of unspecified bronchus or lung; Z51.5 Encounter for palliative care; D64.81 Anemia due to antineoplastic chemotherapy; D63.0 Anemia in neoplastic disease; I10 Essential (primary) hypertension; I73.9 Peripheral vascular disease, unspecified; Z87.891 Personal history of nicotine dependence; I25.10 Atherosclerotic heart disease of native coronary artery without angina pectoris; T45.1X5A Adverse effect of antineoplastic and immunosuppressive drugs, initial encounter; N35.9 Urethral stricture, unspecified; G47.33 Obstructive sleep apnea (adult) (pediatric); E87.5 Hyperkalemia; E78.5 Hyperlipidemia, unspecified; N40.0 Benign prostatic hyperplasia without lower urinary tract symptoms; Z66 Do not resuscitate; K59.00 Constipation, unspecified; Y95 Nosocomial condition
CPT/HCPCS: 36415; 36416; 36430; 71010; 71275; 74000; 80048; 80053; 80162; 80202; 82553; 82565; 82607; 82728; 82747; 82805; 83010; 83540; 83550; 83605; 83735; 83880; 84100; 84145; 84300; 84484; 85014; 85018; 85025; 85046; 85049; 85060; 85384; 85610; 85730; 86850; 86900; 86901; 87040; 87070; 87086; 87102; 87116; 87205; 87206; 88112; 88305; 89051; 93005; 93010; 93306; 93312; 94002; 94003; 94640; 96361; 96365; 96367; 96375; A4216; C1751; C9113; G8978-GP-CN; G8979-GP-CK; J0282; J0692; J1815; J1885; J1940; J1956; J2060; J2248; J2250; J2543; J2704; J2765; J2920; J2930; J3010; J3370; J7050; J7070; J7620; J8540; P9016; P9035; P9047; Q0162; S0028